=== PATIENT | male | born 1965 | race African-American/Black ===

== ENCOUNTER 2017-02-27 12:58 | Inpatient (IN) | payer OTHER ==
[2017-02-27 13:36] VITALS: BMI 27.3
--- NOTE | 2017-02-27 14:49 | HP ---
CIWA Score - CIWA Score Nausea/Vomitin-No Nausea/No Vomiting Muscle Tremors: 4-Moderate,w/Arms Extend Anxiety: 3 Agitation: 4-Moderately Restless Paroxysmal Sweats: 3 Orientation: 0-Oriented Tacttile Disturbances: 0-None Auditory Disturbances: 0-None Visual Disturbances: 0-None Headache: 1-Very Mild CIWA-Ar Total Score: 15 Admission ROS BHS - HPI Chief Complaint: I need to stop drinking. Allergies/Adverse Reactions: Allergies Allergy/AdvReac Type Severity Reaction Status Date / Time No Known Allergies Allergy Verified 02/27/17 14:25 History of Present Illness: pt is a 51yr old male with a history of alcohol dependence seeking detox for treatment. Exam Limitations: No Limitations - Ebola screening Have you traveled outside of the country in the last 21 days: No Have you had contact with anyone from an Ebola affected area: No Have you been sick,other than usual withdrawal symptoms: No Do you have a fever: No - Review of Systems Constitutional: Diaphoresis, Loss of Appetite, Night Sweats, Changes in sleep EENT: reports: No Symptoms Reported Respiratory: reports: No Symptoms reported Cardiac: reports: No Symptoms Reported GI: reports: No Symptoms Reported : reports: No Symptoms Reported Musculoskeletal: reports: No Symptoms Reported Integumentary: reports: Flushing, Sweating Neuro: reports: Headache, Tingling, Tremors Endocrine: reports: Excessive Sweating, Flushing, Intolerance to Cold, Intolerance to Heat Hematology: reports: No Symptoms Reported Psychiatric: reports: Judgement Intact, Mood/Affect Appropiate, Orientated x3, Agitated, Anxious Other Systems: Reviewed and Negative Patient History - Patient Medical History Hx Anemia: No Hx Asthma: No Hx Chronic Obstructive Pulmonary Disease (COPD): No Hx Cancer: No Hx Cardiac Disorders: No Hx Congestive Heart Failure: No Hx Hypertension: Yes (no med) Hx Hypercholesterolemia: Yes (no med) Hx Pacemaker: No HX Cerebrovascular Accident: No Hx Seizures: No Hx Dementia: No Hx Diabetes: No Hx Gastrointestinal Disorders: No Hx Liver Disease: No Hx Genitourinary Disorders: No Hx Sexually Transmitted Disorders: No Hx Renal Disease (ESRD): No Hx Thyroid Disease: No Hx Human Immunodeficiency Virus (HIV): No Hx Hepatitis C: No Hx Depression: Yes Hx Suicide Attempt: No Hx Bipolar Disorder: Yes (seroquel use 400 mg BID as per Hx) Hx Schizophrenia: No - Patient Surgical History Past Surgical History: Yes Hx Neurologic Surgery: No Hx Cataract Extraction: No Hx Cardiac Surgery: No Hx Lung Surgery: No Hx Breast Surgery: No Hx Breast Biopsy: No Hx Abdominal Surgery: No Hx Appendectomy: No Hx Cholecystectomy: No Hx Genitourinary Surgery: No Hx Section: No Hx Orthopedic Surgery: Yes (left ankle with hardware placement (pins & rosio)) Anesthesia Reaction: No - PPD History Previous Implant?: Yes Documented Results: Negative w/proof Date: 08/02/16 Results: 0mm PPD to be Administered?: No - Reproductive History Patient is a Female of Child Bearing Age (11 -55 yrs old): No - Smoking Cessation Smoking history: Current every day smoker Have you smoked in the past 12 months: Yes Aproximately how many cigarettes per day: 20 Cigars Per Day: 0 Hx Chewing Tobacco Use: No Initiated information on smoking cessation: Yes 'Breaking Loose' booklet given: 02/27/17 - Substance & Tx. History Hx Alcohol Use: Yes Hx Substance Use: No Substance Use Type: Alcohol Hx Substance Use Treatment: Yes - Substances Abused Alcohol-beer Route: Oral Frequency: 3-6 times per week Amount used: 3-4 (24 oz.) Age of first use: 20 Date of Last Use: 02/27/17 Family Disease History - Family Disease History Family Disease History: CA: Mother, Respiratory: Son Admission Physical Exam BHS - Vital Signs Vital Signs: Vital Signs - 24 hr 02/27/17 13:32 Temperature 98.4 F Pulse Rate 102 H Respiratory 20 Rate Blood Pressure 159/91 - Physical General Appearance: Yes: Appropriately Dressed, Moderate Distress, Tremorous, Irritable, Sweating, Anxious HEENTM: Yes: Hearing grossly Normal Respiratory: Yes: Lungs Clear, Normal Breath Sounds, No Respiratory Distress Neck: Yes: No masses,lesions,Nodules Breast: Yes: Within Normal Limits Cardiology: Yes: Regular Rate, S1, S2, Tachycardia Abdominal: Yes: Non Tender, Flat, Soft Back: Yes: Normal Inspection Musculoskeletal: Yes: full range of Motion Extremities: Yes: Normal Inspection, Non-Tender, Tremors Neurological: Yes: Fully Oriented, Alert, Normal Response Integumentary: Yes: Normal Color Lymphatic: Yes: Within Normal Limits - Diagnostic (1) Alcohol dependence with withdrawal Current Visit: Yes Status: Chronic Qualifiers: Complication of substance-induced condition: uncomplicated Qualified Code(s): F10.230 - Alcohol dependence with withdrawal, uncomplicated (2) HTN (hypertension) Current Visit: Yes Status: Chronic Qualifiers: Hypertension type: essential hypertension Qualified Code(s): I10 - Essential (primary) hypertension (3) Hyperlipidemia Current Visit: Yes Status: Chronic Qualifiers: Hyperlipidemia type: unspecified Qualified Code(s): E78.5 - Hyperlipidemia, unspecified (4) Nicotine dependence Current Visit: Yes Status: Chronic Qualifiers: Nicotine product type: cigarettes Substance use status: uncomplicated Qualified Code(s): F17.210 - Nicotine dependence, cigarettes, uncomplicated Cleared for Admission BHS - Detox or Rehab [facility] Level of Care: Medically Managed Detox Regimen/Protocol: Librium S Breath Alcohol Content Breath Alcohol Content: 0.097 Urine Drug Screen - Results Drug Screen Negative: Yes
[2017-02-27] MEDS ORDERED: ACETAMINOPHEN 325 MG TABLET (FP) PO PRN (14:53)
[2017-02-27] MEDS ORDERED: NICOTINE POLACRILEX 4 MG GUM BUC PRN (14:53)
[2017-02-27] MEDS ORDERED: MAG HYDROX/AL HYDROX/SIMETH 30 ML UNIT-DOSE CUP PO PRN (14:53)
[2017-02-27] MEDS ORDERED: diphenhydrAMINE HCL 50 MG CAPSULE PO PRN (14:53)
[2017-02-27] MEDS ORDERED: LOPERAMIDE HCL 2 MG CAPSULE PO PRN (14:53)
[2017-02-27] MEDS ORDERED: P-EPHED 60MG/TRIPROLIDI 2.5MG TABLET PO PRN (14:53)
[2017-02-27] MEDS ORDERED: chlordiazePOXIDE HCL 25 MG CAPSULE PO PRN (14:53)
[2017-02-27] MEDS ORDERED: guaiFENesin/D-METHORPHAN HB 10 ML UNIT-DOSE CUPS PO PRN (14:53)
[2017-02-27] MEDS ORDERED: MAGNESIUM CITRATE 300 ML BOTTLE PO PRN (14:53)
[2017-02-27] MEDS ORDERED: MAGNESIUM HYDROX 2400MG/30ML ORAL SUSPENSION 30 ML CUP PO PRN (14:53)
[2017-02-27] MEDS ORDERED: hydrOXYzine PAMOATE 50 MG CAPSULE (FP) PO PRN (14:53)
[2017-02-27] MEDS ORDERED: MENTHOL/PHENOL 1 EACH UD MM PRN (14:53)
[2017-02-27] MEDS ORDERED: IBUPROFEN 400 MG TABLET (FP) PO PRN (14:53)
[2017-02-27] MEDS ORDERED: chlordiazePOXIDE HCL 25 MG CAPSULE PO ONE (15:15)
[2017-02-27] MEDS: HYDROCHLOROTHIAZIDE 25 MG TABLET (FP) PO SCH (15:41)
[2017-02-27] MEDS: chlordiazePOXIDE HCL 25 MG CAPSULE PO SCH ×2 (16:49→22:05)
[2017-02-27] MEDS: THIAMINE HCL 100 MG TABLET (FP) PO SCH (22:06)
[2017-02-28] MEDS: chlordiazePOXIDE HCL 25 MG CAPSULE PO SCH ×3 (05:39→17:04)
--- NOTE | 2017-02-28 10:06 | EKG ---
Test Reason : Blood Pressure : / mmHG Vent. Rate : 096 BPM Atrial Rate : 096 BPM P-R Int : 170 ms QRS Dur : 100 ms QT Int : 348 ms P-R-T Axes : 065 037 057 degrees QTc Int : 439 ms NORMAL SINUS RHYTHM NORMAL ECG NO PREVIOUS ECGS AVAILABLE Confirmed by FREIDA KOENIG, NHUNG ([id number]) on 02/28/2017 10:05:58 AM Referred By: Confirmed By:NHUNG GUAN MD
[2017-02-28] MEDS: PRENATAL VITAMINS W/ FOLIC ACID TABLET (FP) PO SCH (10:14)
[2017-02-28] MEDS: NICOTINE 21 MG/24 HOURS TOPICAL PATCH TD SCH (10:14)
[2017-02-28 10:15] LABS: MCH 31.4 pg (25.7-33.7); MCHC 32.6 g/dl (32.0-35.9); MEAN CELL VOLUME 96.2 fl (80-96); MEAN PLT VOLUME 9.8 fl (7.5-11.1); PLATELET COUNT 147 K/MM3 (134-434); RDW 13.3 % (11.9-15.9); WHITE BLOOD COUNT 4.7 K/mm3 (4.0-10.0)
[2017-02-28] MEDS: HYDROCHLOROTHIAZIDE 25 MG TABLET (FP) PO SCH (10:15)
[2017-02-28 11:02] LABS: ALBUMIN 4.4 g/dl (3.4-5.0); ALK PHOS 71 U/L (45-117); ANION GAP 9 (8-16); BILIRUBIN,TOTAL 0.3 mg/dL (0.2-1.0); CALCIUM 9.8 mg/dL (8.5-10.1); CO2 26 mmol/L (21-32); COCKROFT - GAULT 93.81; CREATININE 1.1 mg/dL (0.7-1.3); GLUCOSE,RANDOM 111 mg/dL (74-106); SGOT/AST 30 U/L (15-37); SGPT/ALT 27 U/L (12-78); TOT PROT 7.8 g/dl (6.4-8.2)
--- NOTE | 2017-02-28 12:11 | CONSULT ---
[facility] Psychiatric Consult - Data Date of interview: 02/28/17 Admission source: [facility] Identifying data: Readmission to [facility] for this 51 y/o AA male seeking detox treatment for alcohol dependence.Patient is ,a father of one, domiciled and employed (self-report). Substance Abuse History: - Smoking Cessation. Smoking history: Current every day smoker. Have you smoked in the past 12 months: Yes. Aproximately how many cigarettes per day: 20. Cigars Per Day: 0. Hx Chewing Tobacco Use: No. Initiated information on smoking cessation: Yes. 'Breaking Loose' booklet given : 02/27/17. - Substance & Tx. History. Hx Alcohol Use: Yes. Hx Substance Use : No. Substance Use Type: Alcohol. Hx Substance Use Treatment: Yes. - Substances Abused. Alcohol-beer. Route: Oral. Frequency: 3-6 times per week. Amount used: 3-4 (24 oz.). Age of first use: 20. Date of Last Use: . Confirmed by patient. Medical History: Hypertension,hyperlipidemia and a history of orthosurgery for fracture of left ankle (hardware in place). Psychiatric History: No reported history of psychiatric hospitalizations.Diagnosed with Bipolar Disorder (2006).Mr Chavez gets his outpatient psychiatric services at the [facility].Maintained on a regimen of seroquel 400 mg po bid (verified via review of recent pharmacy claims of 02/19/[address] [facility]).Patient indicates that he took his medication 24 hours ago (prior to [facility] visit).No history of suicide attempts. Physical/Sexual Abuse/Trauma History: Patient denies. Additional Comment: Drug screen is negative. Mental Status Exam - Mental Status Exam Alert and Oriented to: Time, Place, Person Cognitive Function: Good Patient Appearance: Well Groomed Mood: Withdrawn Affect: Appropriate, Normal Range Patient Behavior: Fatigued, Appropriate, Cooperative Speech Pattern: Clear, Appropriate Voice Loudness: Normal Thought Process: Goal Oriented Thought Disorder: Not Present Hallucinations: Denies Suicidal Ideation: Denies Homicidal Ideation: Denies Insight/Judgement: Fair Sleep: Fair Appetite: Good Muscle strength/Tone: Normal Gait/Station: Normal Psychiatric Findings - Problem List ([place] 1, 2,3) (1) Bipolar disorder Current Visit: Yes Status: Chronic (2) Alcohol dependence with withdrawal Current Visit: Yes Status: Acute Qualifiers: Complication of substance-induced condition: uncomplicated Qualified Code(s): F10.230 - Alcohol dependence with withdrawal, uncomplicated (3) Nicotine dependence Current Visit: Yes Status: Acute Qualifiers: Nicotine product type: cigarettes Substance use status: uncomplicated Qualified Code(s): F17.210 - Nicotine dependence, cigarettes, uncomplicated (4) HTN (hypertension) Current Visit: Yes Status: Chronic Qualifiers: Hypertension type: essential hypertension Qualified Code(s): I10 - Essential (primary) hypertension (5) Hyperlipidemia Current Visit: Yes Status: Chronic Qualifiers: Hyperlipidemia type: unspecified Qualified Code(s): E78.5 - Hyperlipidemia, unspecified - Initial Treatment Plan Initial Treatment Plan: Psychoeducation.Detoxification in progress.Seroquel 200 mg po daily + 400 mg po hs.Dose is slightly reduced as caution against oversedation from drug-drug interactions.Will titrate back to 800 mg/day if well tolerated.Side effects/benefits discussed with patient.Made aware of potential for metabolic syndome,oversedation/falls,abnormal involuntary movements,liver dysfunction and cardiac adverse events.Patient reports history of good tolerability to the drug and he is eager to resume his medication.Observation.NO scripts needed at discharge.
--- NOTE | 2017-02-28 13:03 | PN ---
[facility] CIWA - CIWA Score Nausea/Vomitin-Mild Nausea/No Vomiting Muscle Tremors: 3 Anxiety: 1-Mildly Anxious Agitation: 2 Paroxysmal Sweats: 2 Orientation: 0-Oriented Tacttile Disturbances: 1-Very Mild Itch/Numbness Auditory Disturbances: 1-Very Mild Visual Disturbances: 2-Mild Sensitivity Headache: 0-None Present CIWA-Ar Total Score: 13 BHS Progress Note (SOAP) Subjective: Interrupted sleep, Tremors, Sweating. Objective: PT. A & O X 3, OBSERVED AMBULATING ON UNIT. 02/28/17 13:02 Vital Signs Temperature 96.8 F L 02/28/17 10:21 Pulse Rate 94 H 02/28/17 10:21 Respiratory Rate 18 02/28/17 10:21 Blood Pressure 127/83 02/28/17 10:21 O2 Sat by Pulse Oximetry (%) Laboratory Last Values WBC 4.7 K/mm3 (4.0-10.0) 02/28/17 06:00 RBC 4.37 M/mm3 (4.00-5.60) 02/28/17 06:00 Hgb 13.7 GM/dL (11.7-16.9) 02/28/17 06:00 Hct 42.1 % (35.4-49) 02/28/17 06:00 MCV 96.2 fl (80-96) H 02/28/17 06:00 MCHC 32.6 g/dl (32.0-35.9) 02/28/17 06:00 RDW 13.3 % (11.9-15.9) 02/28/17 06:00 Plt Count 147 K/MM3 (134-434) 02/28/17 06:00 MPV 9.8 fl (7.5-11.1) 02/28/17 06:00 Sodium 140 mmol/L (136-145) 02/28/17 06:00 Potassium 4.5 mmol/L (3.5-5.1) 02/28/17 06:00 Chloride 105 mmol/L (98-107) 02/28/17 06:00 Carbon Dioxide 26 mmol/L (21-32) 02/28/17 06:00 Anion Gap 9 (8-16) 02/28/17 06:00 BUN 9 mg/dL (7-18) D 02/28/17 06:00 Creatinine 1.1 mg/dL (0.7-1.3) 02/28/17 06:00 Creat Clearance w eGFR > 60 (>60) 02/28/17 06:00 Random Glucose 111 mg/dL (74-106) H 02/28/17 06:00 Calcium 9.8 mg/dL (8.5-10.1) 02/28/17 06:00 Total Bilirubin 0.3 mg/dL (0.2-1.0) D 02/28/17 06:00 AST 30 U/L (15-37) D 02/28/17 06:00 ALT 27 U/L (12-78) 02/28/17 06:00 Alkaline Phosphatase 71 U/L (45-117) D 02/28/17 06:00 Total Protein 7.8 g/dl (6.4-8.2) 02/28/17 06:00 Albumin 4.4 g/dl (3.4-5.0) 02/28/17 06:00 RPR Titer Nonreactive (NONREACTIVE) 02/28/17 06:00 LABS NOTED. Assessment: 02/28/17 13:02 WITHDRAWAL SYMPTOMS. Plan: CONTINUE DETOX. ADVISED PATIENT TO FOLLOW-UP WITH CERAMIC COATER AFTER DISCHARGE FROM DETOX FOR GENERAL MEDICAL ASSESSMENT AND FOR ABNORMAL ADMISSION LAB VALUES.
[2017-02-28] MEDS: QUEtiapine FUMARATE 200 MG TABLET PO SCH (14:29)
[2017-02-28] MEDS ORDERED: chlordiazePOXIDE HCL 25 MG CAPSULE PO SCH (17:00)
[2017-02-28] MEDS: chlordiazePOXIDE 5 MG CAPSULE PO SCH (22:05)
[2017-02-28] MEDS: QUEtiapine FUMARATE 400 MG TABLET PO SCH (22:05)
[2017-02-28] MEDS: THIAMINE HCL 100 MG TABLET (FP) PO SCH (22:05)
[2017-02-28] MEDS ORDERED: chlordiazePOXIDE HCL 25 MG CAPSULE PO PRN (23:00)
[2017-03-01] MEDS: chlordiazePOXIDE 5 MG CAPSULE PO SCH ×2 (05:40→10:06)
[2017-03-01] MEDS: PRENATAL VITAMINS W/ FOLIC ACID TABLET (FP) PO SCH (10:06)
[2017-03-01] MEDS: QUEtiapine FUMARATE 200 MG TABLET PO SCH (10:06)
[2017-03-01] MEDS: NICOTINE 21 MG/24 HOURS TOPICAL PATCH TD SCH (10:06)
[2017-03-01] MEDS: HYDROCHLOROTHIAZIDE 25 MG TABLET (FP) PO SCH (10:06)
--- NOTE | 2017-03-01 12:37 | PN ---
[facility] CIWA - CIWA Score Nausea/Vomitin-Mild Nausea/No Vomiting Muscle Tremors: 2 Anxiety: 0-No Anxiety, at Ease Agitation: 0-Normal Activity Paroxysmal Sweats: 3 Orientation: 0-Oriented Tacttile Disturbances: 3-Moderate Itch/Numb/Burn Auditory Disturbances: 0-None Visual Disturbances: 3-Moderate Sensitivity Headache: 0-None Present CIWA-Ar Total Score: 12 S Progress Note (SOAP) Subjective: Tremors, Sweating. Objective: PT. A & O X 3, OBSERVED AMBULATING ON UNIT. 03/01/17 12:36 Vital Signs Temperature 97.0 F L 03/01/17 09:35 Pulse Rate 101 H 03/01/17 09:35 Respiratory Rate 20 03/01/17 09:35 Blood Pressure 116/79 03/01/17 09:35 O2 Sat by Pulse Oximetry (%) Laboratory Last Values WBC 4.7 K/mm3 (4.0-10.0) 02/28/17 06:00 RBC 4.37 M/mm3 (4.00-5.60) 02/28/17 06:00 Hgb 13.7 GM/dL (11.7-16.9) 02/28/17 06:00 Hct 42.1 % (35.4-49) 02/28/17 06:00 MCV 96.2 fl (80-96) H 02/28/17 06:00 MCHC 32.6 g/dl (32.0-35.9) 02/28/17 06:00 RDW 13.3 % (11.9-15.9) 02/28/17 06:00 Plt Count 147 K/MM3 (134-434) 02/28/17 06:00 MPV 9.8 fl (7.5-11.1) 02/28/17 06:00 Sodium 140 mmol/L (136-145) 02/28/17 06:00 Potassium 4.5 mmol/L (3.5-5.1) 02/28/17 06:00 Chloride 105 mmol/L (98-107) 02/28/17 06:00 Carbon Dioxide 26 mmol/L (21-32) 02/28/17 06:00 Anion Gap 9 (8-16) 02/28/17 06:00 BUN 9 mg/dL (7-18) D 02/28/17 06:00 Creatinine 1.1 mg/dL (0.7-1.3) 02/28/17 06:00 Creat Clearance w eGFR > 60 (>60) 02/28/17 06:00 Random Glucose 111 mg/dL (74-106) H 02/28/17 06:00 Calcium 9.8 mg/dL (8.5-10.1) 02/28/17 06:00 Total Bilirubin 0.3 mg/dL (0.2-1.0) D 02/28/17 06:00 AST 30 U/L (15-37) D 02/28/17 06:00 ALT 27 U/L (12-78) 02/28/17 06:00 Alkaline Phosphatase 71 U/L (45-117) D 02/28/17 06:00 Total Protein 7.8 g/dl (6.4-8.2) 02/28/17 06:00 Albumin 4.4 g/dl (3.4-5.0) 02/28/17 06:00 RPR Titer Nonreactive (NONREACTIVE) 02/28/17 06:00 LABS NOTED. Assessment: 03/01/17 12:36 WITHDRAWAL SYMPTOMS. Plan: CONTINUE DETOX. ADVISED PATIENT TO FOLLOW-UP WITH [facility] AFTER DISCHARGE FROM DETOX FOR GENERAL MEDICAL ASSESSMENT AND FOR ABNORMAL DETOX ADMISSION LAB VALUES.
[2017-03-01] MEDS ORDERED: chlordiazePOXIDE 5 MG CAPSULE PO SCH (17:00)
[2017-03-01] MEDS: chlordiazePOXIDE HCL 10 MG CAPSULE PO SCH ×2 (17:23→22:06)
[2017-03-01] MEDS: QUEtiapine FUMARATE 400 MG TABLET PO SCH (22:06)
[2017-03-01] MEDS: THIAMINE HCL 100 MG TABLET (FP) PO SCH (22:06)
[2017-03-02] MEDS: chlordiazePOXIDE HCL 10 MG CAPSULE PO SCH (05:11)
[2017-03-02 06:21] VITALS: BP 130/84; PULSE 96; TEMP 97.9
--- NOTE | 2017-03-02 12:58 | DS ---
[facility] Detox Discharge Summary Admission Date: 02/27/17 Discharge Date: 03/02/17 - History Present History: Alcohol Dependence Additional Comments: ADVISED PATIENT TO FOLLOW-UP WITH INVESTMENT ACCOUNTANT AFTER DISCHARGE FROM DETOX FOR GENERAL MEDICAL ASSESSMENT. Pertinent Past History: HTN, Hypercholesterolemia, Depression, Bipolar Disorder. - Physical Exam Results Vital Signs: Vital Signs Temperature 97.9 F 03/02/17 06:21 Pulse Rate 96 H 03/02/17 06:21 Respiratory Rate 18 03/02/17 06:21 Blood Pressure 130/84 03/02/17 06:21 O2 Sat by Pulse Oximetry (%) Pertinent Admission Physical Exam Findings: WITHDRAWAL SYMPTOMS. Laboratory Last Values WBC 4.7 K/mm3 (4.0-10.0) 02/28/17 06:00 RBC 4.37 M/mm3 (4.00-5.60) 02/28/17 06:00 Hgb 13.7 GM/dL (11.7-16.9) 02/28/17 06:00 Hct 42.1 % (35.4-49) 02/28/17 06:00 MCV 96.2 fl (80-96) H 02/28/17 06:00 MCHC 32.6 g/dl (32.0-35.9) 02/28/17 06:00 RDW 13.3 % (11.9-15.9) 02/28/17 06:00 Plt Count 147 K/MM3 (134-434) 02/28/17 06:00 MPV 9.8 fl (7.5-11.1) 02/28/17 06:00 Sodium 140 mmol/L (136-145) 02/28/17 06:00 Potassium 4.5 mmol/L (3.5-5.1) 02/28/17 06:00 Chloride 105 mmol/L (98-107) 02/28/17 06:00 Carbon Dioxide 26 mmol/L (21-32) 02/28/17 06:00 Anion Gap 9 (8-16) 02/28/17 06:00 BUN 9 mg/dL (7-18) D 02/28/17 06:00 Creatinine 1.1 mg/dL (0.7-1.3) 02/28/17 06:00 Creat Clearance w eGFR > 60 (>60) 02/28/17 06:00 Random Glucose 111 mg/dL (74-106) H 02/28/17 06:00 Calcium 9.8 mg/dL (8.5-10.1) 02/28/17 06:00 Total Bilirubin 0.3 mg/dL (0.2-1.0) D 02/28/17 06:00 AST 30 U/L (15-37) D 02/28/17 06:00 ALT 27 U/L (12-78) 02/28/17 06:00 Alkaline Phosphatase 71 U/L (45-117) D 02/28/17 06:00 Total Protein 7.8 g/dl (6.4-8.2) 02/28/17 06:00 Albumin 4.4 g/dl (3.4-5.0) 02/28/17 06:00 RPR Titer Nonreactive (NONREACTIVE) 02/28/17 06:00 LABS NOTED. - Treatment Hospital Course: Detox Protocol Followed, Detoxed Safely, Responded well, Discharged Condition Good Patient has Accepted a Rehab Referral to: NO - PT. ELECTING TO GO HOME. 12-STEP / AA OUTPATIENT PROGRAMS RECOMMENDED. - Medication Discharge Medications: Ambulatory Orders Hydrochlorothiazide [Hctz -] 25 mg PO DAILY #30 tablet 01/17/15 Fluoxetine HCl [Prozac -] 10 mg PO DAILY 02/27/17 Ibuprofen [Motrin -] 600 mg PO TID 02/27/17 Quetiapine Fumarate [Seroquel -] 400 mg PO BID 02/27/17 - Diagnosis (1) Alcohol dependence with withdrawal Status: Acute Qualifiers: Complication of substance-induced condition: uncomplicated Qualified Code(s): F10.230 - Alcohol dependence with withdrawal, uncomplicated (2) Nicotine dependence Status: Chronic Qualifiers: Nicotine product type: cigarettes Substance use status: uncomplicated Qualified Code(s): F17.210 - Nicotine dependence, cigarettes, uncomplicated (3) Bipolar disorder Status: Chronic Qualifiers: Active/Remission status: remission status unspecified Qualified Code (s): F31.9 - Bipolar disorder, unspecified (4) HTN (hypertension) Status: Chronic Qualifiers: Hypertension type: essential hypertension Qualified Code(s): I10 - Essential (primary) hypertension (5) Hyperlipidemia Status: Chronic Qualifiers: Hyperlipidemia type: unspecified Qualified Code(s): E78.5 - Hyperlipidemia, unspecified - AMA Did Patient Leave Against Medical Advice: No
[2017-03-02] MEDS ORDERED: chlordiazePOXIDE HCL 10 MG CAPSULE PO SCH (17:00)
== END 2017-03-02 07:19 | disposition home or self-care (01) | DRG 775 ==
LOC: YASAS 12:58 → Y3N 15:12
PROVIDERS: ADMIT Internal Medicine; ATTEND Internal Medicine
PROC: HZ2ZZZZ Detoxification Services for Substance Abuse Treatment (ICD-10-PCS; principal; 2017-03-02)
DX: F10.230 Alcohol dependence with withdrawal, uncomplicated (principal); F17.210 Nicotine dependence, cigarettes, uncomplicated; F31.9 Bipolar disorder, unspecified; I10 Essential (primary) hypertension; E78.5 Hyperlipidemia, unspecified
CPT/HCPCS: 36415; 80053; 85027; 86593; 93005; 93010

== ENCOUNTER 2017-10-10 13:59 | Inpatient (IN) | payer OTHER ==
[2017-10-10 14:21] VITALS: BMI 28.0
[2017-10-10] MEDS ORDERED: MAG HYDROX/AL HYDROX/SIMETH 30 ML UNIT-DOSE CUP PO PRN (17:48)
[2017-10-10] MEDS ORDERED: LOPERAMIDE HCL 2 MG CAPSULE PO PRN (17:48)
[2017-10-10] MEDS ORDERED: MAGNESIUM CITRATE 300 ML BOTTLE PO PRN (17:48)
[2017-10-10] MEDS ORDERED: hydrOXYzine PAMOATE 50 MG CAPSULE (FP) PO PRN (17:48)
[2017-10-10] MEDS ORDERED: chlordiazePOXIDE HCL 25 MG CAPSULE PO PRN (17:48)
[2017-10-10] MEDS ORDERED: guaiFENesin/D-METHORPHAN HB 10 ML UNIT-DOSE CUPS PO PRN (17:48)
[2017-10-10] MEDS ORDERED: NICOTINE POLACRILEX 4 MG GUM BUC PRN (17:48)
[2017-10-10] MEDS ORDERED: ACETAMINOPHEN 325 MG TABLET (FP) PO PRN (17:48)
[2017-10-10] MEDS ORDERED: P-EPHED 60MG/TRIPROLIDI 2.5MG TABLET PO PRN (17:48)
[2017-10-10] MEDS ORDERED: MENTHOL/PHENOL 1 EACH UD MM PRN (17:48)
[2017-10-10] MEDS ORDERED: MAGNESIUM HYDROX 2400MG/30ML ORAL SUSPENSION 30 ML CUP PO PRN (17:48)
[2017-10-10] MEDS ORDERED: IBUPROFEN 400 MG TABLET (FP) PO PRN (17:48)
--- NOTE | 2017-10-10 17:48 | HP ---
CIWA Score - CIWA Score Nausea/Vomitin Muscle Tremors: 3 Anxiety: 3 Agitation: 3 Paroxysmal Sweats: 3 Orientation: 0-Oriented Tacttile Disturbances: 1-Very Mild Itch/Numbness Auditory Disturbances: 0-None Visual Disturbances: 0-None Headache: 1-Very Mild CIWA-Ar Total Score: 17 Admission [facility] Chief Complaint: alcohol withdrawal sx Allergies/Adverse Reactions: Allergies Allergy/AdvReac Type Severity Reaction Status Date / Time No Known Allergies Allergy Verified 02/27/17 14:25 History of Present Illness: 52 yo m with h/o chronic alcoholism and cocaine abuse reports alcohol withdrawal sx when he does not drink. no h/o sieuzres or DTs. PMHX pancreatitis , hypercholesterlemia, bipolar do on meds, HTN Exam Limitations: No Limitations - Ebola screening Have you traveled outside of the country in the last 21 days: No (N) Have you had contact with anyone from an Ebola affected area: No Have you been sick,other than usual withdrawal symptoms: No Do you have a fever: No - Review of Systems Constitutional: Chills, Diaphoresis, Loss of Appetite, Malaise, Night Sweats, Changes in sleep, Unintentional Wgt. Loss EENT: reports: No Symptoms Reported Respiratory: reports: No Symptoms reported Cardiac: reports: No Symptoms Reported GI: reports: Diarrhea, Nausea, Poor Appetite, Poor Fluid Intake, Indigestion, Abdominal cramping : reports: No Symptoms Reported Musculoskeletal: reports: Back Pain, Muscle Pain Integumentary: reports: Flushing, Sweating Neuro: reports: Headache, Numbness, Tingling, Tremors Endocrine: reports: Flushing, Increased Thirst Hematology: reports: No Symptoms Reported Psychiatric: reports: Judgement Intact, Mood/Affect Appropiate, Orientated x3, Anxious, Depressed Other Systems: Reviewed and Negative Patient History - Patient Medical History Hx Anemia: No Hx Asthma: No Hx Chronic Obstructive Pulmonary Disease (COPD): No Hx Cancer: No Hx Cardiac Disorders: No Hx Congestive Heart Failure: No Hx Hypertension: Yes (BP: 162/98, Pt is HCTZ) Hx Hypercholesterolemia: Yes (no med) Hx Pacemaker: No HX Cerebrovascular Accident: No Hx Seizures: No Hx Dementia: No Hx Diabetes: No Hx Gastrointestinal Disorders: No Hx Liver Disease: No Hx Genitourinary Disorders: No Hx Sexually Transmitted Disorders: No Hx Renal Disease (ESRD): No Hx Thyroid Disease: No Hx Human Immunodeficiency Virus (HIV): No Hx Hepatitis C: No Hx Depression: No Hx Suicide Attempt: No (no si) Hx Bipolar Disorder: Yes (seroquel use 400 mg BID as per Hx) Hx Schizophrenia: No - Patient Surgical History Past Surgical History: Yes Hx Neurologic Surgery: No Hx Cataract Extraction: No Hx Cardiac Surgery: No Hx Lung Surgery: No Hx Breast Surgery: No Hx Breast Biopsy: No Hx Abdominal Surgery: No Hx Appendectomy: No Hx Cholecystectomy: No Hx Genitourinary Surgery: No Hx Section: No Hx Orthopedic Surgery: Yes (left ankle with hardware placement (pins & rosio)) Anesthesia Reaction: No - PPD History Previous Implant?: Yes Documented Results: Negative w/o proof Date: 08/02/16 Results: 0mm PPD to be Administered?: Yes - Reproductive History Patient is a Female of Child Bearing Age (11 -55 yrs old): No Patient : No - Smoking Cessation Smoking history: Current every day smoker Have you smoked in the past 12 months: Yes Aproximately how many cigarettes per day: 20 Cigars Per Day: 0 Hx Chewing Tobacco Use: No Initiated information on smoking cessation: Yes 'Breaking Loose' booklet given: 10/10/17 - Substance & Tx. History Hx Alcohol Use: Yes Hx Substance Use: Yes Substance Use Type: Alcohol, Cocaine Hx Substance Use Treatment: Yes ([facility] - Substances Abused Alcohol Route: Oral Frequency: 3-6 times per week Amount used: Beer 3 x 24oz Age of first use: 20 Date of Last Use: 10/10/17 Cocaine Route: Inhalation Frequency: 1-3 times last 30 days Date of Last Use: 10/07/17 Family Disease History - Family Disease History Family Disease History: CA: Mother, Respiratory: Son Admission Physical Exam BHS - Vital Signs Vital Signs: Vital Signs - 24 hr 10/10/17 14:20 Temperature 96.3 F L Pulse Rate 102 H Respiratory 18 Rate Blood Pressure 162/98 - Physical General Appearance: Yes: Nourished, Appropriately Dressed, Disheveled, Mild Distress, Tremorous, Irritable, Sweating, Anxious HEENTM: Yes: Within Normal Limits, EOMI, Hearing grossly Normal, Normal ENT Inspection, Normocephalic, Normal Voice, CHHAYA, Pharynx Normal Respiratory: Yes: Within Normal Limits, Chest Non-Tender, Lungs Clear, Normal Breath Sounds, No Respiratory Distress, No Accessory Muscle Use Neck: Yes: Within Normal Limits, No masses,lesions,Nodules, Supple, Trachea in good position Breast: Yes: Breast Exam Deferred Cardiology: Yes: Within Normal Limits, Regular Rhythm, Regular Rate, S1, S2 Abdominal: Yes: Within Normal Limits, Normal Bowel Sounds, Non Tender, Flat, Increased Bowel Sounds Genitourinary: Yes: Within Normal Limits Back: Yes: Muscle Spasm Musculoskeletal: Yes: full range of Motion, Gait Steady, Pelvis Stable, Back pain Extremities: Yes: Normal Capillary Refill, Normal Range of Motion, Non-Tender, Tremors 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, Fully Oriented, Alert, Motor Strength 5/5, Normal Response, Depressed Affect Integumentary: Yes: Normal Color, Warm, Diaphoresis, Moist Lymphatic: Yes: Within Normal Limits - Addiitonal Findings: withdrawal sx - Diagnostic (1) Alcohol dependence with withdrawal Current Visit: No Status: Acute Qualifiers: (2) Bipolar disorder Current Visit: No Status: Chronic Qualifiers: (3) HTN (hypertension) Current Visit: No Status: Chronic Qualifiers: (4) Hyperlipidemia Current Visit: No Status: Chronic Qualifiers: (5) Nicotine dependence Current Visit: No Status: Chronic Qualifiers: Cleared for Admission [facility] - Detox or Rehab [facility] Level of Care: Medically Managed Detox Regimen/Protocol: Librium [facility] Breath Alcohol Content Breath Alcohol Content: 0.055 Urine Drug Screen - Results Drug Screen Negative: No Urine Drug Screen Results: JC-Cocaine, TCA-Tricyclic Antidepress
[2017-10-10] MEDS: HYDROCHLOROTHIAZIDE 25 MG TABLET (FP) PO SCH (19:09)
[2017-10-10] MEDS: NICOTINE 21 MG/24 HOURS TOPICAL PATCH TD SCH (19:15)
[2017-10-10 22:05] LABS: URINE APPEARANCE CLEAR; URINE BILIRUBIN NEGATIVE (NEGATIVE); URINE BLOOD 1+ (NEGATIVE); URINE COLOR LTYELLOW; URINE GLUCOSE (UA) NEGATIVE (NEGATIVE); URINE KETONE NEGATIVE (NEGATIVE); URINE LEUK ESTERASE NEGATIVE (NEGATIVE); URINE NITRITE NEGATIVE (NEGATIVE); URINE PROTEIN NEGATIVE (NEGATIVE); URINE UROBILINOGEN NEGATIVE mg/dL (0.2-1.0)
[2017-10-10] MEDS: THIAMINE HCL 100 MG TABLET (FP) PO SCH (22:33)
[2017-10-10] MEDS: chlordiazePOXIDE HCL 25 MG CAPSULE PO SCH (22:33)
[2017-10-10 23:08] LABS: URINE MUCUS RARE
[2017-10-11] MEDS: chlordiazePOXIDE HCL 25 MG CAPSULE PO SCH ×4 (06:37→22:51)
[2017-10-11 09:59] LABS: HEMATOCRIT 45.4 % (35.4-49); HEMOGLOBIN 14.6 GM/dL (11.7-16.9); MCH 31.2 pg (25.7-33.7); MCHC 32.2 g/dl (32.0-35.9); MEAN CELL VOLUME 96.7 fl (80-96); MEAN PLT VOLUME 9.1 fl (7.5-11.1); PLATELET COUNT 162 K/MM3 (134-434); RBC 4.69 M/mm3 (4.00-5.60)
[2017-10-11 10:14] LABS: CHLORIDE 105 mmol/L (98-107); POTASSIUM 3.7 mmol/L (3.5-5.1); SODIUM 137 mmol/L (136-145)
[2017-10-11 10:28] LABS: ALBUMIN 3.8 g/dl (3.4-5.0); ALK PHOS 64 U/L (45-117); ANION GAP 7 (8-16); BILIRUBIN,TOTAL 0.7 mg/dL (0.2-1.0); BLOOD UREA NITROGEN 12 mg/dL (7-18); CO2 25 mmol/L (21-32); CREATININE 1.1 mg/dL (0.7-1.3); GLUCOSE,RANDOM 109 mg/dL (74-106); SGOT/AST 21 U/L (15-37); SGPT/ALT 23 U/L (12-78); TOT PROT 7.3 g/dl (6.4-8.2)
--- NOTE | 2017-10-11 10:32 | CONSULT ---
[facility] Psychiatric Consult - Data Date of interview: 10/11/17 Admission source: [facility] Identifying data: Pt. is a 52 year old male, single, father of one, and currently unemployed. This is patient's one of multiple [facility]. Pt. admitted to for alcohol dependence. Substance Abuse History: Alcohol- First used 20 Frequency: 3-6 times per week Amount: 3x20oz. Last used: 10/10/2017. Cocaine- Frequency: 1-3 times last 30 days Date of Last Use: 10/07/17. Cigarette- Every day smoker: 20 cigarettes per day. Medical History: Hypertension. Psychiatric History: Pt. states he has been seeing an outpatient psychiatrist at the [facility] for four years. States he is currently on seroquel 400BID, reports taking seroquel for 8 years. Pt. reports taking his medications as prescribed. States he has a diagnosis of Bipolar disorder. Pt. denies h/o suicide attempts and psychiatric hospitalization. Physical/Sexual Abuse/Trauma History: Denies. Mental Status Exam - Mental Status Exam Alert and Oriented to: Time, Place, Person Cognitive Function: Good Patient Appearance: Well Groomed Mood: Hopeful Affect: Appropriate Patient Behavior: Appropriate, Cooperative Speech Pattern: Clear, Appropriate Voice Loudness: Normal Thought Process: Goal Oriented Thought Disorder: Not Present Hallucinations: Denies Suicidal Ideation: Denies Homicidal Ideation: Denies Insight/Judgement: Poor Sleep: Poorly Appetite: Fair Muscle strength/Tone: Normal Gait/Station: Normal Psychiatric Findings - Problem List ([place] 1, 2,3) (1) Alcohol dependence with withdrawal Current Visit: Yes Status: Acute Qualifiers: (2) Bipolar disorder Current Visit: Yes Status: Chronic Qualifiers: (3) Cocaine dependence Current Visit: Yes Status: Acute (4) Nicotine dependence Current Visit: Yes Status: Chronic Qualifiers: - Initial Treatment Plan Initial Treatment Plan: Psychoeducation provided. Detoxification in progress. Pharmacy claims reviewed. Seroquel 200mg PO daily ( reduce dosage due to cautious of oversedatiom from drug to drug interaction) + Seroquel 400mg qhs to be ordered. Seroquel 200mg to be titrated to 400mg if medication tolerated well. Benefits and side effects discussed. Verbal consent given. Pt. agreeable with plan.
[2017-10-11] MEDS: HYDROCHLOROTHIAZIDE 25 MG TABLET (FP) PO SCH (11:09)
[2017-10-11] MEDS: PRENATAL VITAMINS W/ FOLIC ACID TABLET (FP) PO SCH (11:09)
[2017-10-11] MEDS: NICOTINE 21 MG/24 HOURS TOPICAL PATCH TD SCH (11:10)
[2017-10-11] MEDS: QUEtiapine FUMARATE 200 MG TABLET PO SCH (11:11)
--- NOTE | 2017-10-11 13:13 | EKG ---
Test Reason : Blood Pressure : / mmHG Vent. Rate : 099 BPM Atrial Rate : 099 BPM P-R Int : 180 ms QRS Dur : 096 ms QT Int : 348 ms P-R-T Axes : 064 017 050 degrees QTc Int : 446 ms NORMAL SINUS RHYTHM NORMAL ECG WHEN COMPARED WITH ECG OF 27-FEB-2017 14:44, NO SIGNIFICANT CHANGE WAS FOUND Confirmed by ASHLEY HYLTON MD ([id number]) on 10/11/2017 1:13:08 PM Referred By: PONCHO KENYON Confirmed By:ASHLEY HYLTON MD
--- NOTE | 2017-10-11 14:54 | PN ---
[facility] CIWA - CIWA Score Nausea/Vomitin-Mild Nausea/No Vomiting Muscle Tremors: 3 Anxiety: 4-Mod. Anxious/Guarded Agitation: 4-Moderately Restless Paroxysmal Sweats: 3 Orientation: 0-Oriented Tacttile Disturbances: 1-Very Mild Itch/Numbness Auditory Disturbances: 0-None Visual Disturbances: 0-None Headache: 1-Very Mild CIWA-Ar Total Score: 17 BHS Progress Note (SOAP) Subjective: Sweating, nausea, interrupted sleep, anxious Objective: 10/11/17 14:51 Last Vital Signs Temp Pulse Resp BP Pulse Ox 100 F H 111 H 18 141/86 10/11/17 13:53 10/11/17 13:53 10/11/17 13:53 10/11/17 13:53 Laboratory Tests 10/10/17 10/11/17 10/11/17 21:50 07:30 07:30 WBC 4.0 RBC 4.69 Hgb 14.6 Hct 45.4 MCV 96.7 H MCH 31.2 MCHC 32.2 RDW 13.0 Plt Count 162 MPV 9.1 Sodium 137 Potassium 3.7 Chloride 105 Carbon Dioxide 25 Anion Gap 7 L BUN 12 D Creatinine 1.1 Creat Clearance w eGFR > 60 Random Glucose 109 H Calcium 9.0 Total Bilirubin 0.7 D AST 21 D ALT 23 Alkaline Phosphatase 64 Total Protein 7.3 Albumin 3.8 Urine Color Ltyellow Urine Appearance Clear Urine pH 5.0 Ur Specific [place] 1.008 Urine Protein Negative Urine Glucose (UA) Negative Urine Ketones Negative Urine Blood 1+ H Urine Nitrite Negative Urine Bilirubin Negative Urine Urobilinogen Negative Ur Leukocyte Esterase Negative Urine WBC (Auto) <1 Urine RBC (Auto) 1 Urine Mucus Rare RPR Titer 10/11/17 07:30 WBC RBC Hgb Hct MCV MCH MCHC RDW Plt Count MPV Sodium Potassium Chloride Carbon Dioxide Anion Gap BUN Creatinine Creat Clearance w eGFR Random Glucose Calcium Total Bilirubin AST ALT Alkaline Phosphatase Total Protein Albumin Urine Color Urine Appearance Urine pH Ur Specific [place] Urine Protein Urine Glucose (UA) Urine Ketones Urine Blood Urine Nitrite Urine Bilirubin Urine Urobilinogen Ur Leukocyte Esterase Urine WBC (Auto) Urine RBC (Auto) Urine Mucus RPR Titer Nonreactive Labs noted: UA shows 1+ blood Assessment: 10/11/17 14:52 Withdrawal symptoms Noted with microscopic hematuria Plan: Continue detox Microscopic hematuria: encouraged to drink lots of water, repeat UA
[2017-10-11] MEDS ORDERED: QUEtiapine FUMARATE 400 MG TABLET PO SCH (22:00)
[2017-10-11] MEDS: THIAMINE HCL 100 MG TABLET (FP) PO SCH (22:51)
[2017-10-12] MEDS: chlordiazePOXIDE HCL 25 MG CAPSULE PO SCH ×3 (06:17→17:53)
[2017-10-12] MEDS: PRENATAL VITAMINS W/ FOLIC ACID TABLET (FP) PO SCH (10:41)
[2017-10-12] MEDS: NICOTINE 21 MG/24 HOURS TOPICAL PATCH TD SCH (10:41)
[2017-10-12] MEDS: QUEtiapine FUMARATE 200 MG TABLET PO SCH (10:41)
[2017-10-12] MEDS: HYDROCHLOROTHIAZIDE 25 MG TABLET (FP) PO SCH (10:41)
--- NOTE | 2017-10-12 14:38 | PN ---
[facility] CIWA - CIWA Score Nausea/Vomitin-Mild Nausea/No Vomiting Muscle Tremors: 3 Anxiety: 4-Mod. Anxious/Guarded Agitation: 4-Moderately Restless Paroxysmal Sweats: 3 Orientation: 0-Oriented Tacttile Disturbances: 1-Very Mild Itch/Numbness Auditory Disturbances: 0-None Visual Disturbances: 0-None Headache: 0-None Present CIWA-Ar Total Score: 16 BHS Progress Note (SOAP) Subjective: Anxious, sweating, nausea Objective: 10/12/17 14:36 Last Vital Signs Temp Pulse Resp BP Pulse Ox 97.9 F 95 H 18 108/63 10/12/17 10:00 10/12/17 10:00 10/12/17 10:00 10/12/17 10:00 Laboratory Tests 10/10/17 10/11/17 10/11/17 21:50 07:30 07:30 WBC 4.0 RBC 4.69 Hgb 14.6 Hct 45.4 MCV 96.7 H MCH 31.2 MCHC 32.2 RDW 13.0 Plt Count 162 MPV 9.1 Sodium 137 Potassium 3.7 Chloride 105 Carbon Dioxide 25 Anion Gap 7 L BUN 12 D Creatinine 1.1 Creat Clearance w eGFR > 60 Random Glucose 109 H Calcium 9.0 Total Bilirubin 0.7 D AST 21 D ALT 23 Alkaline Phosphatase 64 Total Protein 7.3 Albumin 3.8 Urine Color Ltyellow Urine Appearance Clear Urine pH 5.0 Ur Specific [place] 1.008 Urine Protein Negative Urine Glucose (UA) Negative Urine Ketones Negative Urine Blood 1+ H Urine Nitrite Negative Urine Bilirubin Negative Urine Urobilinogen Negative Ur Leukocyte Esterase Negative Urine WBC (Auto) <1 Urine RBC (Auto) 1 Urine Mucus Rare RPR Titer 10/11/17 07:30 WBC RBC Hgb Hct MCV MCH MCHC RDW Plt Count MPV Sodium Potassium Chloride Carbon Dioxide Anion Gap BUN Creatinine Creat Clearance w eGFR Random Glucose Calcium Total Bilirubin AST ALT Alkaline Phosphatase Total Protein Albumin Urine Color Urine Appearance Urine pH Ur Specific [place] Urine Protein Urine Glucose (UA) Urine Ketones Urine Blood Urine Nitrite Urine Bilirubin Urine Urobilinogen Ur Leukocyte Esterase Urine WBC (Auto) Urine RBC (Auto) Urine Mucus RPR Titer Nonreactive Labs noted: UA shows 1+ blood Assessment: 10/12/17 14:37 Withdrawal symptoms Microscopic hematuria noted Plan: Continue detox Microscopic hematuria: encouraged to drink lots of water, repeat UA
--- NOTE | 2017-10-12 17:54 | PN ---
[facility] Progress Note Note: Psychiatric nurse practitioner: Spoke to patient bedside in reference to titrating seroquel to 400mg BID. Pt. agreeable with plan. No complaints of oversedation or dizziness. Vital signs within normal limits. Verbal consent given. Seroquel 400mg BID ordered.
[2017-10-12 18:02] LABS: URINE APPEARANCE CLEAR; URINE BILIRUBIN NEGATIVE (NEGATIVE); URINE BLOOD 1+ (NEGATIVE); URINE COLOR STRAW; URINE GLUCOSE (UA) NEGATIVE (NEGATIVE); URINE KETONE NEGATIVE (NEGATIVE); URINE LEUK ESTERASE NEGATIVE (NEGATIVE); URINE NITRITE NEGATIVE (NEGATIVE); URINE PROTEIN NEGATIVE (NEGATIVE); URINE UROBILINOGEN NEGATIVE mg/dL (0.2-1.0)
[2017-10-12] MEDS: THIAMINE HCL 100 MG TABLET (FP) PO SCH (22:28)
[2017-10-12] MEDS: chlordiazePOXIDE 5 MG CAPSULE PO SCH (22:28)
[2017-10-12] MEDS: QUEtiapine FUMARATE 400 MG TABLET PO SCH (22:28)
[2017-10-13] MEDS: chlordiazePOXIDE 5 MG CAPSULE PO SCH ×4 (06:12→17:51)
[2017-10-13] MEDS: PRENATAL VITAMINS W/ FOLIC ACID TABLET (FP) PO SCH (10:55)
[2017-10-13] MEDS: HYDROCHLOROTHIAZIDE 25 MG TABLET (FP) PO SCH (10:55)
[2017-10-13] MEDS: QUEtiapine FUMARATE 400 MG TABLET PO SCH ×2 (10:56→22:17)
[2017-10-13] MEDS: NICOTINE 21 MG/24 HOURS TOPICAL PATCH TD SCH (10:59)
--- NOTE | 2017-10-13 14:22 | PN ---
BHS Progress Note (SOAP) Subjective: Sweating,interrupted sleep,restless Objective: 10/13/17 14:20 Vital Signs - 8 hr 10/13/17 10/13/17 10:54 13:44 Temperature 97.3 F L 97.7 F Pulse Rate 106 H 105 H Respiratory 18 18 Rate Blood Pressure 127/79 121/82 Laboratory Tests 10/10/17 10/11/17 10/11/17 21:50 07:30 07:30 WBC 4.0 RBC 4.69 Hgb 14.6 Hct 45.4 MCV 96.7 H MCH 31.2 MCHC 32.2 RDW 13.0 Plt Count 162 MPV 9.1 Sodium 137 Potassium 3.7 Chloride 105 Carbon Dioxide 25 Anion Gap 7 L BUN 12 D Creatinine 1.1 Creat Clearance w eGFR > 60 Random Glucose 109 H Calcium 9.0 Total Bilirubin 0.7 D AST 21 D ALT 23 Alkaline Phosphatase 64 Total Protein 7.3 Albumin 3.8 Urine Color Ltyellow Urine Appearance Clear Urine pH 5.0 Ur Specific [place] 1.008 Urine Protein Negative Urine Glucose (UA) Negative Urine Ketones Negative Urine Blood 1+ H Urine Nitrite Negative Urine Bilirubin Negative Urine Urobilinogen Negative Ur Leukocyte Esterase Negative Urine WBC (Auto) <1 Urine RBC (Auto) 1 Urine Mucus Rare RPR Titer 10/11/17 10/12/17 07:30 17:53 WBC RBC Hgb Hct MCV MCH MCHC RDW Plt Count MPV Sodium Potassium Chloride Carbon Dioxide Anion Gap BUN Creatinine Creat Clearance w eGFR Random Glucose Calcium Total Bilirubin AST ALT Alkaline Phosphatase Total Protein Albumin Urine Color Straw Urine Appearance Clear Urine pH 6.0 Ur Specific [place] 1.006 Urine Protein Negative Urine Glucose (UA) Negative Urine Ketones Negative Urine Blood 1+ H Urine Nitrite Negative Urine Bilirubin Negative Urine Urobilinogen Negative Ur Leukocyte Esterase Negative Urine WBC (Auto) None Urine RBC (Auto) 2 Urine Mucus RPR Titer Nonreactive labs noted Assessment: 10/13/17 14:21 Withdrawal sx. Plan: Continue detox
[2017-10-13] MEDS: chlordiazePOXIDE HCL 10 MG CAPSULE PO SCH (22:17)
[2017-10-13] MEDS: THIAMINE HCL 100 MG TABLET (FP) PO SCH (22:17)
[2017-10-14] MEDS: chlordiazePOXIDE HCL 10 MG CAPSULE PO SCH ×2 (06:21→10:38)
--- NOTE | 2017-10-14 09:01 | DS ---
[facility] Detox Discharge Summary Admission Date: 10/10/17 Discharge Date: 10/14/17 - History Present History: Alcohol Dependence, Cocaine Dependence Pertinent Past History: HTN Hyperlipidermia - Physical Exam Results Vital Signs: Vital Signs Temperature 97.7 F 10/14/17 06:00 Pulse Rate 88 10/14/17 06:00 Respiratory Rate 18 10/14/17 06:00 Blood Pressure 123/79 10/14/17 06:00 O2 Sat by Pulse Oximetry (%) Pertinent Admission Physical Exam Findings: withdrawal sx Laboratory Last Values WBC 4.0 K/mm3 (4.0-10.0) 10/11/17 07:30 RBC 4.69 M/mm3 (4.00-5.60) 10/11/17 07:30 Hgb 14.6 GM/dL (11.7-16.9) 10/11/17 07:30 Hct 45.4 % (35.4-49) 10/11/17 07:30 MCV 96.7 fl (80-96) H 10/11/17 07:30 MCH 31.2 pg (25.7-33.7) 10/11/17 07:30 MCHC 32.2 g/dl (32.0-35.9) 10/11/17 07:30 RDW 13.0 % (11.9-15.9) 10/11/17 07:30 Plt Count 162 K/MM3 (134-434) 10/11/17 07:30 MPV 9.1 fl (7.5-11.1) 10/11/17 07:30 Sodium 137 mmol/L (136-145) 10/11/17 07:30 Potassium 3.7 mmol/L (3.5-5.1) 10/11/17 07:30 Chloride 105 mmol/L (98-107) 10/11/17 07:30 Carbon Dioxide 25 mmol/L (21-32) 10/11/17 07:30 Anion Gap 7 (8-16) L 10/11/17 07:30 BUN 12 mg/dL (7-18) D 10/11/17 07:30 Creatinine 1.1 mg/dL (0.7-1.3) 10/11/17 07:30 Creat Clearance w eGFR > 60 (>60) 10/11/17 07:30 Random Glucose 109 mg/dL (74-106) H 10/11/17 07:30 Calcium 9.0 mg/dL (8.5-10.1) 10/11/17 07:30 Total Bilirubin 0.7 mg/dL (0.2-1.0) D 10/11/17 07:30 AST 21 U/L (15-37) D 10/11/17 07:30 ALT 23 U/L (12-78) 10/11/17 07:30 Alkaline Phosphatase 64 U/L (45-117) 10/11/17 07:30 Total Protein 7.3 g/dl (6.4-8.2) 10/11/17 07:30 Albumin 3.8 g/dl (3.4-5.0) 10/11/17 07:30 Urine Color Straw 10/12/17 17:53 Urine Appearance Clear 10/12/17 17:53 Urine pH 6.0 (5.0-8.0) 10/12/17 17:53 Ur Specific [place] 1.006 (1.001-1.035) 10/12/17 17:53 Urine Protein Negative (NEGATIVE) 10/12/17 17:53 Urine Glucose (UA) Negative (NEGATIVE) 10/12/17 17:53 Urine Ketones Negative (NEGATIVE) 10/12/17 17:53 Urine Blood 1+ (NEGATIVE) H 10/12/17 17:53 Urine Nitrite Negative (NEGATIVE) 10/12/17 17:53 Urine Bilirubin Negative (NEGATIVE) 10/12/17 17:53 Urine Urobilinogen Negative mg/dL (0.2-1.0) 10/12/17 17:53 Ur Leukocyte Esterase Negative (NEGATIVE) 10/12/17 17:53 Urine WBC (Auto) None /hpf (3-5) 10/12/17 17:53 Urine RBC (Auto) 2 /hpf (0-3) 10/12/17 17:53 Urine Mucus Rare 10/10/17 21:50 RPR Titer Nonreactive (NONREACTIVE) 10/11/17 07:30 Labs noted - Treatment Hospital Course: Detox Protocol Followed, Detoxed Safely, Responded well, Discharged Condition Good, Rehab Referral Accepted Patient has Accepted a Rehab Referral to: [facility] Rehab - Medication Discharge Medications: Ambulatory Orders Hydrochlorothiazide [Hctz -] 25 mg PO DAILY #30 tablet 01/17/15 Fluoxetine HCl [Prozac -] 10 mg PO DAILY 02/27/17 Ibuprofen [Motrin -] 600 mg PO TID 02/27/17 Quetiapine Fumarate [Seroquel -] 400 mg PO BID 02/27/17 - Diagnosis (1) Alcohol dependence with withdrawal Current Visit: Yes Status: Acute Qualifiers: Complication of substance-induced condition: uncomplicated Qualified Code(s ): F10.230 - Alcohol dependence with withdrawal, uncomplicated (2) Microscopic hematuria Current Visit: Yes Status: Acute (3) HTN (hypertension) Current Visit: Yes Status: Chronic Qualifiers: Hypertension type: essential hypertension (4) Hyperlipidemia Current Visit: Yes Status: Chronic Qualifiers: (5) Nicotine dependence Current Visit: Yes Status: Chronic Qualifiers: - AMA Did Patient Leave Against Medical Advice: No
[2017-10-14 09:44] VITALS: BP 120/80; PULSE 100; TEMP 98.2
[2017-10-14] MEDS: QUEtiapine FUMARATE 400 MG TABLET PO SCH (10:35)
[2017-10-14] MEDS: HYDROCHLOROTHIAZIDE 25 MG TABLET (FP) PO SCH (10:35)
[2017-10-14] MEDS: PRENATAL VITAMINS W/ FOLIC ACID TABLET (FP) PO SCH (10:35)
[2017-10-14] MEDS: NICOTINE 21 MG/24 HOURS TOPICAL PATCH TD SCH (10:39)
== END 2017-10-14 11:05 | disposition other institution (70) | DRG 775 ==
LOC: YASAS 13:59 → Y6N 18:22
PROVIDERS: ADMIT Internal Medicine; ATTEND Internal Medicine
PROC: HZ2ZZZZ Detoxification Services for Substance Abuse Treatment (ICD-10-PCS; principal; 2017-10-10)
DX: F10.230 Alcohol dependence with withdrawal, uncomplicated (principal); F17.210 Nicotine dependence, cigarettes, uncomplicated; F31.9 Bipolar disorder, unspecified; E78.5 Hyperlipidemia, unspecified; I10 Essential (primary) hypertension; R31.29 Other microscopic hematuria
CPT/HCPCS: 36415; 80053; 81003; 81015; 85027; 86593; 93005; 93010

== ENCOUNTER 2017-10-14 11:12 | Inpatient (IN) | payer OTHER ==
[2017-10-14 11:45] VITALS: BMI 27.3
[2017-10-14] MEDS ORDERED: MAGNESIUM CITRATE 300 ML BOTTLE PO PRN (12:03)
[2017-10-14] MEDS ORDERED: NICOTINE POLACRILEX 2 MG GUM BUC PRN (12:03)
[2017-10-14] MEDS ORDERED: P-EPHED 60MG/TRIPROLIDI 2.5MG TABLET PO PRN (12:03)
[2017-10-14] MEDS ORDERED: MAG HYDROX/AL HYDROX/SIMETH 30 ML UNIT-DOSE CUP PO PRN (12:03)
[2017-10-14] MEDS ORDERED: MENTHOL/PHENOL 1 EACH UD MM PRN (12:03)
[2017-10-14] MEDS ORDERED: LOPERAMIDE HCL 2 MG CAPSULE PO PRN (12:03)
[2017-10-14] MEDS ORDERED: MAGNESIUM HYDROX 2400MG/30ML ORAL SUSPENSION 30 ML CUP PO PRN (12:03)
[2017-10-14] MEDS ORDERED: guaiFENesin/D-METHORPHAN HB 10 ML UNIT-DOSE CUPS PO PRN (12:03)
--- NOTE | 2017-10-14 12:14 | HP ---
[facility] Rehab Assess/Revision - Admission History Admitted to Rehab from: [facility] Date of Admission to Rehab: 10/14/17 - Vital signs Vital Signs: Vital Signs Period Temp Pulse Resp BP Sys/Beltran Pulse Ox Last 24 Hr 98.4 F 107 18 136/86 - Findings Detox History & Physical reviewed: Yes Concur with findings: Yes Inpatient Rehab Admission - Initial Determination Are CD services needed?: Yes Free of communicable disease: Yes Not in need of hospitalization: Yes - Rehab Admission Criteria Previous failed treatment: Yes Poor recovery environment: Yes Comorbidities: Yes Lacks judgement: Yes Patient is meeting Inpatient Rehab admission criteria:: Yes
[2017-10-14] MEDS: QUEtiapine FUMARATE 400 MG TABLET PO SCH (21:24)
[2017-10-14] MEDS: THIAMINE HCL 100 MG TABLET (FP) PO SCH (21:24)
[2017-10-15] MEDS: QUEtiapine FUMARATE 400 MG TABLET PO SCH ×2 (09:57→21:19)
[2017-10-15] MEDS: NICOTINE 21 MG/24 HOURS TOPICAL PATCH TD SCH (09:57)
[2017-10-15] MEDS: HYDROCHLOROTHIAZIDE 25 MG TABLET (FP) PO SCH (09:57)
[2017-10-15] MEDS: PRENATAL VITAMINS W/ FOLIC ACID TABLET (FP) PO SCH (09:57)
[2017-10-15] MEDS: FLUoxetine HCL 10 MG CAPSULE (FP) PO SCH (09:58)
[2017-10-15] MEDS ORDERED: FLUoxetine HCL 10 MG TABLET PO SCH (10:00)
[2017-10-15] MEDS: THIAMINE HCL 100 MG TABLET (FP) PO SCH (21:19)
--- NOTE | 2017-10-16 06:10 | HP ---
Psychiatrist Admission - Data Date of interview: 10/16/17 Admission source: 6N Identifying data: This is the second [facility] admission for this 52 years old single Black male, father of a 21 years old son , unemployed on public assistance, domiciled living in a roon in [facility] Medical History: Significant for hypertension, hyperlipidemia and history of pancreatitis and orthosurgery for fracture left ankle in 1997. Smokes cigarettes 1ppd Psychiatric History: Reports being diagnosed with Bipolar Disorder in 2006. Denies history of previous psychiatric hospitalization or suicidal attempt. Reports seeing Dr Tran at [facility] and he is prescribed Seroquel 400 mg po BID. He saw DARRYL Narvaez on 10/11/17 while in detox and was prescribed Seroquel 400 mg po BID. At present, Report feeling well and sleeping well with Seroquel Physical/Sexual Abuse/Trauma History: Denies history of sexual, physical and verbal abuse. No history of service. Additional Comment: Reports history of multiple previous arrests including one felony conviction. No parole/probation currently Vital Signs: Vital Signs - 24 hr 10/15/17 10/15/17 10/16/17 06:38 10:00 00:30 Temperature 97.6 F Pulse Rate 97 H 99 H Respiratory 20 20 18 Rate Blood Pressure 138/86 158/88 Allergies/Adverse Reactions: Allergies Allergy/AdvReac Type Severity Reaction Status Date / Time No Known Allergies Allergy Verified 02/27/17 14:25 Date of last physical exam: 10/10/17 Concur with the findings of this exam: Yes - Substance Abuse/Tx History Hx Alcohol Use: Yes Hx Substance Use: Yes Substance Use Type: Alcohol (Started drinking alcohol at age 20, consumes 3x24oz of beer daily. Last drank on 10/10/17), Cocaine (Reports that he tried cocaine once recently) Hx Substance Use Treatment: Yes (4 previous inpt detox & one inpt rehab @ [facility]) Mental Status Exam - Mental Status Exam Alert and Oriented to: Time, Place, Person Cognitive Function: Fair Patient Appearance: Well Groomed Mood: Hopeful, Euthymic Patient Behavior: Cooperative Speech Pattern: Clear Voice Loudness: Normal Thought Process: Intact, Goal Oriented Hallucinations: Denies Suicidal Ideation: Denies Homicidal Ideation: Denies Insight/Judgement: Fair Sleep: Poorly Appetite: Fair Muscle strength/Tone: Normal Gait/Station: Normal Psychiatric Findings - Problem List ([place] 1, 2,3) (1) Alcohol dependence Current Visit: Yes Status: Acute (2) Nicotine dependence Current Visit: No Status: Chronic Qualifiers: (3) Bipolar disorder Current Visit: No Status: Chronic Qualifiers: (4) HTN (hypertension) Current Visit: No Status: Chronic Qualifiers: Hypertension type: essential hypertension Qualified Code(s): I10 - Essential (primary) hypertension (5) Hyperlipidemia Current Visit: No Status: Chronic Qualifiers: - Initial Treatment Plan Initial Treatment Plan: 1) Continue Prozac 10 mg po daily and Seroquel 400 mg po BID. 2) Monitor progress
[2017-10-16] MEDS: QUEtiapine FUMARATE 400 MG TABLET PO SCH ×2 (09:57→21:14)
[2017-10-16] MEDS: FLUoxetine HCL 10 MG CAPSULE (FP) PO SCH (09:57)
[2017-10-16] MEDS: PRENATAL VITAMINS W/ FOLIC ACID TABLET (FP) PO SCH (09:57)
[2017-10-16] MEDS: HYDROCHLOROTHIAZIDE 25 MG TABLET (FP) PO SCH (09:57)
[2017-10-16] MEDS: NICOTINE 21 MG/24 HOURS TOPICAL PATCH TD SCH (09:58)
--- NOTE | 2017-10-16 14:47 | PN ---
S Progress Note (SOAP) Subjective: Patient seen for c/o swelling in legs. As per patient, he accidentally broke his left leg years ago and has pins and needles inserted. As per patient, every time it rains or snows, his right leg gets swollen but it's fine now. He denies any sob or chest pain. Objective: 10/16/17 14:45 Last Vital Signs Temp Pulse Resp BP Pulse Ox 97.7 F 100 H 18 148/91 10/16/17 06:40 10/16/17 09:30 10/16/17 06:40 10/16/17 09:30 Labs reviewed PE: Extrem: old healed scar alongside left leg, no swelling noted to either legs Assessment: 10/16/17 14:45 Patient seen for swelling of legs Plan: Edema of legs: no edema noted at this time. Patient instructed to elevate legs whenever it gets swollen and to avoid long standing.
[2017-10-16] MEDS: THIAMINE HCL 100 MG TABLET (FP) PO SCH (21:14)
[2017-10-17] MEDS: FLUoxetine HCL 10 MG CAPSULE (FP) PO SCH (09:45)
[2017-10-17] MEDS: HYDROCHLOROTHIAZIDE 25 MG TABLET (FP) PO SCH (09:45)
[2017-10-17] MEDS: QUEtiapine FUMARATE 400 MG TABLET PO SCH ×2 (09:45→21:45)
[2017-10-17] MEDS: PRENATAL VITAMINS W/ FOLIC ACID TABLET (FP) PO SCH (09:45)
[2017-10-17] MEDS: NICOTINE 21 MG/24 HOURS TOPICAL PATCH TD SCH (09:45)
[2017-10-17] MEDS: THIAMINE HCL 100 MG TABLET (FP) PO SCH (21:45)
[2017-10-18] MEDS: PRENATAL VITAMINS W/ FOLIC ACID TABLET (FP) PO SCH (09:57)
[2017-10-18] MEDS: NICOTINE 21 MG/24 HOURS TOPICAL PATCH TD SCH (09:57)
[2017-10-18] MEDS: FLUoxetine HCL 10 MG CAPSULE (FP) PO SCH (09:57)
[2017-10-18] MEDS: HYDROCHLOROTHIAZIDE 25 MG TABLET (FP) PO SCH (09:57)
[2017-10-18] MEDS: QUEtiapine FUMARATE 400 MG TABLET PO SCH ×2 (09:57→21:13)
[2017-10-18] MEDS: THIAMINE HCL 100 MG TABLET (FP) PO SCH (21:13)
[2017-10-19] MEDS: HYDROCHLOROTHIAZIDE 25 MG TABLET (FP) PO SCH (09:35)
[2017-10-19] MEDS: FLUoxetine HCL 10 MG CAPSULE (FP) PO SCH (09:35)
[2017-10-19] MEDS: PRENATAL VITAMINS W/ FOLIC ACID TABLET (FP) PO SCH (09:35)
[2017-10-19] MEDS: QUEtiapine FUMARATE 400 MG TABLET PO SCH ×2 (09:36→21:15)
[2017-10-19] MEDS: NICOTINE 21 MG/24 HOURS TOPICAL PATCH TD SCH (09:36)
[2017-10-19] MEDS: THIAMINE HCL 100 MG TABLET (FP) PO SCH (21:15)
[2017-10-20] MEDS: PRENATAL VITAMINS W/ FOLIC ACID TABLET (FP) PO SCH (09:44)
[2017-10-20] MEDS: FLUoxetine HCL 10 MG CAPSULE (FP) PO SCH (09:44)
[2017-10-20] MEDS: HYDROCHLOROTHIAZIDE 25 MG TABLET (FP) PO SCH (09:44)
[2017-10-20] MEDS: NICOTINE 21 MG/24 HOURS TOPICAL PATCH TD SCH (09:44)
[2017-10-20] MEDS: QUEtiapine FUMARATE 400 MG TABLET PO SCH ×2 (09:46→21:38)
[2017-10-20] MEDS: THIAMINE HCL 100 MG TABLET (FP) PO SCH (21:38)
[2017-10-21] MEDS: NICOTINE 21 MG/24 HOURS TOPICAL PATCH TD SCH (09:48)
[2017-10-21] MEDS: HYDROCHLOROTHIAZIDE 25 MG TABLET (FP) PO SCH (09:48)
[2017-10-21] MEDS: PRENATAL VITAMINS W/ FOLIC ACID TABLET (FP) PO SCH (09:48)
[2017-10-21] MEDS: QUEtiapine FUMARATE 400 MG TABLET PO SCH ×2 (09:48→21:22)
[2017-10-21] MEDS: FLUoxetine HCL 10 MG CAPSULE (FP) PO SCH (09:48)
[2017-10-21] MEDS: THIAMINE HCL 100 MG TABLET (FP) PO SCH (21:22)
[2017-10-22] MEDS: NICOTINE 21 MG/24 HOURS TOPICAL PATCH TD SCH (09:52)
[2017-10-22] MEDS: FLUoxetine HCL 10 MG CAPSULE (FP) PO SCH (09:52)
[2017-10-22] MEDS: HYDROCHLOROTHIAZIDE 25 MG TABLET (FP) PO SCH (09:52)
[2017-10-22] MEDS: PRENATAL VITAMINS W/ FOLIC ACID TABLET (FP) PO SCH (09:52)
[2017-10-22] MEDS: QUEtiapine FUMARATE 400 MG TABLET PO SCH ×2 (09:53→22:00)
[2017-10-22] MEDS: ACETAMINOPHEN 325 MG TABLET (FP) PO PRN ×2 (16:01→21:40)
[2017-10-22] MEDS: THIAMINE HCL 100 MG TABLET (FP) PO SCH (21:24)
[2017-10-23] MEDS: ACETAMINOPHEN 325 MG TABLET (FP) PO PRN (08:24)
[2017-10-23] MEDS: PRENATAL VITAMINS W/ FOLIC ACID TABLET (FP) PO SCH (10:06)
[2017-10-23] MEDS: NICOTINE 21 MG/24 HOURS TOPICAL PATCH TD SCH (10:06)
[2017-10-23] MEDS: HYDROCHLOROTHIAZIDE 25 MG TABLET (FP) PO SCH (10:06)
[2017-10-23] MEDS: QUEtiapine FUMARATE 400 MG TABLET PO SCH ×2 (10:06→21:51)
[2017-10-23] MEDS: FLUoxetine HCL 10 MG CAPSULE (FP) PO SCH (10:06)
[2017-10-23] MEDS: IBUPROFEN 400 MG TABLET (FP) PO PRN ×2 (15:29→21:50)
[2017-10-23] MEDS: THIAMINE HCL 100 MG TABLET (FP) PO SCH (21:50)
[2017-10-24] MEDS: ACETAMINOPHEN 325 MG TABLET (FP) PO PRN (02:14)
[2017-10-24] MEDS: FLUoxetine HCL 10 MG CAPSULE (FP) PO SCH (09:20)
[2017-10-24] MEDS: HYDROCHLOROTHIAZIDE 25 MG TABLET (FP) PO SCH (09:20)
[2017-10-24] MEDS: PRENATAL VITAMINS W/ FOLIC ACID TABLET (FP) PO SCH (09:20)
[2017-10-24] MEDS: NICOTINE 21 MG/24 HOURS TOPICAL PATCH TD SCH (09:21)
[2017-10-24] MEDS: QUEtiapine FUMARATE 400 MG TABLET PO SCH ×2 (09:21→21:28)
[2017-10-24] MEDS: THIAMINE HCL 100 MG TABLET (FP) PO SCH (21:28)
[2017-10-25] MEDS: PRENATAL VITAMINS W/ FOLIC ACID TABLET (FP) PO SCH (09:42)
[2017-10-25] MEDS: QUEtiapine FUMARATE 400 MG TABLET PO SCH ×2 (09:42→21:18)
[2017-10-25] MEDS: HYDROCHLOROTHIAZIDE 25 MG TABLET (FP) PO SCH (09:42)
[2017-10-25] MEDS: NICOTINE 21 MG/24 HOURS TOPICAL PATCH TD SCH (09:42)
[2017-10-25] MEDS: FLUoxetine HCL 10 MG CAPSULE (FP) PO SCH (09:42)
--- NOTE | 2017-10-25 11:04 | PN ---
Psychiatric Progress Note Vital Signs: Vital Signs Period Temp Pulse Resp BP Sys/Beltran Pulse Ox Last 24 Hr 98.6 F 89-92 18-20 124-138/80-86 Date of Session: 10/25/17 Chief Complaint:: Discharge Note HPI: Patient addressing Alcohol Dependence comorbid with Nicotine Dependence and Bipolar Disorder ROS: HTN, HLD were medically managed Current Medications: Active Medications Generic Name Dose Route Start Last Admin Trade Name Freq PRN Reason Stop Dose Admin Acetaminophen 650 mg 10/14/17 12:03 10/24/17 02:14 Tylenol - PO 650 mg Q4H PRN Administration FEVER OR PAIN Al Hydroxide/Mg Hydroxide 30 ml 10/14/17 12:03 Mylanta Oral Suspension - PO Q6H PRN DYSPEPSIA Eucalyptus/Menthol/Phenol/Sorbitol 1 each 10/14/17 12:03 Cepastat Lozenge - MM Q4H PRN SORE THROAT Fluoxetine HCl 10 mg 10/15/17 10:00 10/25/17 09:42 Prozac - PO 10 mg DAILY TIFFANIE Administration Guaifenesin 10 ml 10/14/17 12:03 Robitussin Dm - PO Q6H PRN COUGH Hydrochlorothiazide 25 mg 10/15/17 10:00 10/25/17 09:42 Hctz - PO 25 mg DAILY TIFFANIE Administration Ibuprofen 400 mg 10/14/17 12:03 10/23/17 21:50 Motrin - PO 400 mg Q6H PRN Administration PAIN Loperamide HCl 4 mg 10/14/17 12:03 Imodium - PO Q6H PRN DIARRHEA Magnesium Citrate 300 ml 10/14/17 12:03 Citroma - PO Q48H PRN CONSTIPATION Magnesium Hydroxide 30 ml 10/14/17 12:03 Milk Of Magnesia - PO DAILY PRN CONSTIPATION Nicotine 21 mg 10/15/17 10:00 10/25/17 09:42 Nicoderm Patch - TD 21 mg DAILY TIFFANIE Administration Nicotine Polacrilex 2 mg 10/14/17 12:03 10/18/17 09:58 Nicorette Gum - BUC 2 mg Q2H PRN Administration NICOTINE REPLACEMENT RX Multivit/Folic Acid/Iron 1 tab 10/15/17 10:00 10/25/17 09:42 Vitamins (Sjr) - PO 1 tab DAILY TIFFANIE Administration Pseudoephedrine/Triprolidine 1 combo 10/14/17 12:03 Actifed - PO TID PRN NASAL CONGESTION Quetiapine Fumarate 400 mg 10/14/17 22:00 10/25/17 09:42 Seroquel - PO 400 mg BID TIFFANIE Administration Thiamine HCl 100 mg 10/14/17 22:00 10/24/17 21:28 Vitamin B1 - PO 100 mg HS TIFFANIE Administration Current Side Effect: No Lab tests ordered: Yes Lab tests reviewed: Yes Provider note:: Patient will complete this program on 10/26/17. He has met his treatment goals and will continue to address his issues in outpatient treatment at [facility] at [address] [place] [address]. Told sheet writer that from his participation in this program, he has learned the importance of establishing a sober suport network in order to maintain abstinence. He responded well to Prozac 10 mg po daily and Seroquel 400 mg po BID. Scripts for 30 days supply of medications will be electronically transmitted to [facility] at [address] [place] [address]. He is stable for discharge on 10/26/17 Total face to face time:: 35 Mental Status Exam - Mental Status Exam Alert and Oriented to: Time, Place, Person Cognitive Function: Fair Patient Appearance: Well Groomed Mood: Hopeful, Euthymic Affect: Appropriate Patient Behavior: Cooperative Speech Pattern: Clear Voice Loudness: Normal Thought Process: Intact, Goal Oriented Thought Disorder: Not Present Hallucinations: Denies Suicidal Ideation: Denies Homicidal Ideation: Denies Insight/Judgement: Fair Sleep: Well Appetite: Good Muscle strength/Tone: Normal Gait/Station: Normal Psychiatric Treatment Plan - Problem List (1) Alcohol dependence Current Visit: Yes (2) Nicotine dependence Current Visit: No Qualifiers: (3) Bipolar disorder Current Visit: No Qualifiers: (4) HTN (hypertension) Current Visit: No Qualifiers: Hypertension type: essential hypertension Qualified Code(s): I10 - Essential (primary) hypertension (5) Hyperlipidemia Current Visit: No Qualifiers: Initial treatment plan: Patient will be discharged tomorrow and referred to [facility] in [facility] for outpatient treatment
[2017-10-25] MEDS: THIAMINE HCL 100 MG TABLET (FP) PO SCH (21:18)
[2017-10-26 07:03] VITALS: BP 128/84; PULSE 95; TEMP 98.1
[2017-10-26] MEDS: NICOTINE 21 MG/24 HOURS TOPICAL PATCH TD SCH (09:40)
[2017-10-26] MEDS: QUEtiapine FUMARATE 400 MG TABLET PO SCH (09:40)
[2017-10-26] MEDS: FLUoxetine HCL 10 MG CAPSULE (FP) PO SCH (09:40)
[2017-10-26] MEDS: PRENATAL VITAMINS W/ FOLIC ACID TABLET (FP) PO SCH (09:40)
[2017-10-26] MEDS: HYDROCHLOROTHIAZIDE 25 MG TABLET (FP) PO SCH (09:40)
== END 2017-10-26 09:45 | disposition home or self-care (01) | DRG 772 ==
LOC: YASAS 11:12 → Y3W 11:13
PROVIDERS: ADMIT Psychiatry & Neurology Psychiatry; ATTEND Psychiatry & Neurology Psychiatry
PROC: HZ42ZZZ Group Counseling for Substance Abuse Treatment, Cognitive-Behavioral (ICD-10-PCS; principal; 2017-10-14)
DX: F10.230 Alcohol dependence with withdrawal, uncomplicated (principal); F17.210 Nicotine dependence, cigarettes, uncomplicated; F31.9 Bipolar disorder, unspecified; I10 Essential (primary) hypertension; E78.5 Hyperlipidemia, unspecified

== ENCOUNTER 2018-03-05 16:15 | Inpatient (IN) | payer OTHER ==
[2018-03-05 18:35] VITALS: BMI 28.3
--- NOTE | 2018-03-05 20:32 | HP ---
CIWA Score - CIWA Score Nausea/Vomitin-No Nausea/No Vomiting Muscle Tremors: 1-None Visible, but [place] Anxiety: 4-Mod. Anxious/Guarded Agitation: 4-Moderately Restless Paroxysmal Sweats: No Perspiration Orientation: 1-Uncertain about Date Tacttile Disturbances: 0-None Auditory Disturbances: 0-None Visual Disturbances: 0-None Headache: 2-Mild CIWA-Ar Total Score: 12 Admission ROS BHS - HPI Chief Complaint: seeking detox from alcohol with withdrawal sx's Allergies/Adverse Reactions: Allergies Allergy/AdvReac Type Severity Reaction Status Date / Time No Known Allergies Allergy Verified 03/05/18 20:38 History of Present Illness: 52 Y.O. MALE WITH ALCOHOLISM HERE FOR DETOX. CLIENT IS KNOWN TO THIS PROGRAM. LAST HERE 09/2017 WHERE HE COMPLETED DETOX. REFERRED BY HIS OUT PATIENT PROGRAM NATALIA. DENIES ANY PERIOD OF SIGNIFICANT CLEAN TIME. DENIES SI/HI AND A /V HALLUCINATIONS PMHX: HLD, HTN, NICOTINE DEP PSYCH:BIPOLAR, ANXIETY Exam Limitations: No Limitations - Ebola screening Have you traveled outside of the country in the last 21 days: No (N) Have you had contact with anyone from an Ebola affected area: No Have you been sick,other than usual withdrawal symptoms: No Do you have a fever: No - Review of Systems Constitutional: Chills, Loss of Appetite, Night Sweats, Changes in sleep EENT: reports: Dental Problems (MISSING TEETH) Respiratory: reports: No Symptoms reported Cardiac: reports: No Symptoms Reported GI: reports: Poor Appetite, Poor Fluid Intake : reports: No Symptoms Reported Musculoskeletal: reports: No Symptoms Reported Integumentary: reports: No Symptoms Reported Neuro: reports: No Symptoms reported Endocrine: reports: No Symptoms Reported Hematology: reports: No Symptoms Reported Psychiatric: reports: Anxious, Depressed Other Systems: Reviewed and Negative Patient History - Patient Medical History Hx Anemia: No Hx Asthma: No Hx Chronic Obstructive Pulmonary Disease (COPD): No Hx Cancer: No Hx Cardiac Disorders: No Hx Congestive Heart Failure: No Hx Hypertension: Yes Hx Hypercholesterolemia: Yes (no med) Hx Pacemaker: No HX Cerebrovascular Accident: No Hx Seizures: No Hx Dementia: No Hx Diabetes: No Hx Gastrointestinal Disorders: No Hx Liver Disease: No Hx Genitourinary Disorders: No Hx Sexually Transmitted Disorders: No Hx Renal Disease (ESRD): No Hx Thyroid Disease: No Hx Human Immunodeficiency Virus (HIV): No Hx Hepatitis C: No Hx Depression: Yes Hx Suicide Attempt: No Hx Bipolar Disorder: Yes (seroquel use 400 mg BID as per Hx) Hx Schizophrenia: No Other Medical History: DENIES - Patient Surgical History Past Surgical History: Yes Hx Neurologic Surgery: No Hx Cataract Extraction: No Hx Cardiac Surgery: No Hx Lung Surgery: No Hx Breast Surgery: No Hx Breast Biopsy: No Hx Abdominal Surgery: No Hx Appendectomy: No Hx Cholecystectomy: No Hx Genitourinary Surgery: No Hx Section: No Hx Orthopedic Surgery: Yes (left ankle with hardware placement (pins & rosio)) Anesthesia Reaction: No - PPD History Previous Implant?: Yes Documented Results: Negative w/proof Date: 10/12/17 Results: 0 mm PPD to be Administered?: No - Smoking Cessation Smoking history: Current every day smoker Have you smoked in the past 12 months: Yes Aproximately how many cigarettes per day: 10 Cigars Per Day: 0 Hx Chewing Tobacco Use: No Initiated information on smoking cessation: Yes 'Breaking Loose' booklet given: 03/05/18 - Substance & Tx. History Hx Alcohol Use: Yes Hx Substance Use: Yes Substance Use Type: Alcohol, Cocaine Hx Substance Use Treatment: Yes ([facility]) - Substances Abused Alcohol Route: Oral Frequency: Daily Amount used: 3/24oz of beer Age of first use: 21 Date of Last Use: 03/05/18 Cocaine Route: Inhalation Frequency: 1-3 times last 30 days Amount used: 1 bag Age of first use: 27 Date of Last Use: 03/01/18 Family Disease History - Family Disease History Family Disease History: [place]: Mother, Respiratory: Son Admission Physical Exam [facility] - Vital Signs Vital Signs: Vital Signs - 24 hr 03/05/18 18:34 Temperature 97.1 F L Pulse Rate 125 H Respiratory 18 Rate Blood Pressure 146/92 - Physical General Appearance: Yes: Appropriately Dressed, Alcohol on Breath, Tremorous ( FELT), Anxious HEENTM: Yes: Normocephalic, Normal Voice, CHHAYA, Pharynx Normal, Other (MISSING TEETH) Respiratory: Yes: Chest Non-Tender, Lungs Clear, Normal Breath Sounds, No Respiratory Distress, No Accessory Muscle Use Neck: Yes: No masses,lesions,Nodules, Supple, Trachea in good position Breast: Yes: Breast Exam Deferred Cardiology: Yes: Regular Rhythm, S1, S2, Tachycardia Abdominal: Yes: Normal Bowel Sounds, Non Tender, Soft, Protuberent Genitourinary: Yes: Within Normal Limits Back: Yes: Normal Inspection Musculoskeletal: Yes: full range of Motion, Gait Steady Extremities: Yes: Normal Capillary Refill, Normal Range of Motion, Non-Tender, Tremors Neurological: Yes: Fully Oriented, Alert, Motor Strength 5/5 Integumentary: Yes: Normal Color, Dry, Warm Lymphatic: Yes: Within Normal Limits - Diagnostic (1) Alcohol dependence with withdrawal Current Visit: Yes Status: Acute Qualifiers: Complication of substance-induced condition: uncomplicated Qualified Code(s ): F10.230 - Alcohol dependence with withdrawal, uncomplicated (2) Bipolar disorder Current Visit: Yes Status: Suspected Qualifiers: (3) HTN (hypertension) Current Visit: Yes Status: Chronic Qualifiers: Hypertension type: essential hypertension Qualified Code(s): I10 - Essential (primary) hypertension (4) Hyperlipidemia Current Visit: Yes Status: Chronic Qualifiers: (5) Nicotine dependence Current Visit: Yes Status: Chronic Qualifiers: Cleared for Admission [facility] - Detox or Rehab [facility] Level of Care: Medically Managed Detox Regimen/Protocol: Librium Claeared for Rehab Admission: No [facility] Breath Alcohol Content Breath Alcohol Content: 0.121 Urine Drug Screen - Results Drug Screen Negative: No Urine Drug Screen Results: JC-Cocaine
[2018-03-05] MEDS ORDERED: IBUPROFEN 400 MG TABLET (FP) PO PRN (20:33)
[2018-03-05] MEDS ORDERED: chlordiazePOXIDE HCL 25 MG CAPSULE PO PRN (20:33)
[2018-03-05] MEDS ORDERED: MAGNESIUM HYDROX 2400MG/30ML ORAL SUSPENSION 30 ML CUP PO PRN (20:33)
[2018-03-05] MEDS ORDERED: MAG HYDROX/AL HYDROX/SIMETH 30 ML UNIT-DOSE CUP PO PRN (20:33)
[2018-03-05] MEDS ORDERED: P-EPHED 60MG/TRIPROLIDI 2.5MG TABLET PO PRN (20:33)
[2018-03-05] MEDS ORDERED: guaiFENesin/D-METHORPHAN HB 10 ML UNIT-DOSE CUPS PO PRN (20:33)
[2018-03-05] MEDS ORDERED: NICOTINE POLACRILEX 2 MG GUM BC PRN (20:33)
[2018-03-05] MEDS ORDERED: hydrOXYzine PAMOATE 50 MG CAPSULE (FP) PO PRN (20:33)
[2018-03-05] MEDS ORDERED: ACETAMINOPHEN 325 MG TABLET (FP) PO PRN (20:33)
[2018-03-05] MEDS ORDERED: MENTHOL/PHENOL 1 EACH UD MM PRN (20:33)
[2018-03-05] MEDS ORDERED: MAGNESIUM CITRATE 300 ML BOTTLE PO PRN (20:33)
[2018-03-05] MEDS ORDERED: LOPERAMIDE HCL 2 MG CAPSULE PO PRN (20:33)
[2018-03-05] MEDS: THIAMINE HCL 100 MG TABLET (FP) PO SCH (21:55)
[2018-03-05] MEDS: HYDROCHLOROTHIAZIDE 25 MG TABLET (FP) PO SCH (21:55)
[2018-03-05] MEDS: METOPROLOL TARTRATE 25 MG TABLET (FP) PO SCH (21:55)
[2018-03-05] MEDS: amLODIPine BESYLATE 10 MG TABLET (FP) PO SCH (21:55)
[2018-03-05] MEDS ORDERED: MELATONIN 5 MG TABLETS PO PRN (22:00)
[2018-03-05] MEDS: chlordiazePOXIDE HCL 25 MG CAPSULE PO SCH (22:03)
[2018-03-06] MEDS: chlordiazePOXIDE HCL 25 MG CAPSULE PO SCH ×4 (06:05→22:07)
[2018-03-06] MEDS: PRENATAL VITAMINS W/ FOLIC ACID TABLET (FP) PO SCH (10:33)
[2018-03-06] MEDS: NICOTINE 14 MG/24 HOURS TOPICAL PATCH TD SCH (10:34)
[2018-03-06 10:45] LABS: HEMATOCRIT 44.4 % (35.4-49); HEMOGLOBIN 14.6 GM/dL (11.7-16.9); MCH 31.4 pg (25.7-33.7); MCHC 32.8 g/dl (32.0-35.9); MEAN CELL VOLUME 95.7 fl (80-96); MEAN PLT VOLUME 9.6 fl (7.5-11.1); PLATELET COUNT 193 K/MM3 (134-434); RBC 4.64 M/mm3 (4.00-5.60); RDW 12.7 % (11.9-15.9); WHITE BLOOD COUNT 4.7 K/mm3 (4.0-10.0)
[2018-03-06 11:06] LABS: CHLORIDE 107 mmol/L (98-107); POTASSIUM 3.9 mmol/L (3.5-5.1); SODIUM 140 mmol/L (136-145)
[2018-03-06 11:15] LABS: ALBUMIN 3.9 g/dl (3.4-5.0); ALK PHOS 79 U/L (45-117); ANION GAP 9 (8-16); BILIRUBIN,TOTAL 0.5 mg/dL (0.2-1.0); BLOOD UREA NITROGEN 12 mg/dL (7-18); CALCIUM 9.3 mg/dL (8.5-10.1); CO2 24 mmol/L (21-32); GLUCOSE,RANDOM 103 mg/dL (74-106); SGOT/AST 24 U/L (15-37); SGPT/ALT 24 U/L (12-78); TOT PROT 7.9 g/dl (6.4-8.2)
--- NOTE | 2018-03-06 11:28 | PN ---
S CIWA - CIWA Score Nausea/Vomitin-No Nausea/No Vomiting Muscle Tremors: 4-Moderate,w/Arms Extend Anxiety: 4-Mod. Anxious/Guarded Agitation: 4-Moderately Restless Paroxysmal Sweats: 1-Minimal Palms Moist Orientation: 0-Oriented Tacttile Disturbances: 0-None Auditory Disturbances: 0-None Visual Disturbances: 0-None Headache: 0-None Present CIWA-Ar Total Score: 13 BHS Progress Note (SOAP) Subjective: PT C/O FATIGUE,SLIGHT TREMORS AND ANXIETY, SWEATS. Objective: 03/06/18 11:27 Vital Signs 03/06/18 03/06/18 03/06/18 03:30 04:00 04:30 Temperature Pulse Rate 88 90 92 H Respiratory 18 18 18 Rate Blood Pressure 03/06/18 03/06/18 03/06/18 05:00 05:30 06:00 Temperature Pulse Rate 94 H 97 H 92 H Respiratory 18 18 18 Rate Blood Pressure 03/06/18 03/06/18 03/06/18 06:30 06:43 07:00 Temperature 97 F L Pulse Rate 90 90 88 Respiratory 18 18 18 Rate Blood Pressure 137/81 03/06/18 03/06/18 03/06/18 07:30 08:00 09:00 Temperature Pulse Rate 88 85 84 Respiratory 18 18 20 Rate Blood Pressure 03/06/18 03/06/18 03/06/18 09:10 09:30 10:00 Temperature 97.7 F Pulse Rate 84 86 88 Respiratory 20 20 20 Rate Blood Pressure 150/76 03/06/18 03/06/18 10:30 11:00 Temperature Pulse Rate 86 88 Respiratory 20 20 Rate Blood Pressure Laboratory Tests 03/06/18 03/06/18 07:20 07:20 WBC 4.7 RBC 4.64 Hgb 14.6 Hct 44.4 MCV 95.7 MCH 31.4 MCHC 32.8 RDW 12.7 Plt Count 193 MPV 9.6 Sodium 140 Potassium 3.9 Chloride 107 Carbon Dioxide 24 Anion Gap 9 BUN 12 Creatinine 1.0 Creat Clearance w eGFR > 60 Random Glucose 103 Calcium 9.3 Total Bilirubin 0.5 D AST 24 ALT 24 Alkaline Phosphatase 79 D Total Protein 7.9 Albumin 3.9 OTHER LABS PENDING Assessment: 03/06/18 11:27 WITHDRAWAL SX Plan: CONTINUE DETOX INCREASE PO FLUIDS.
--- NOTE | 2018-03-06 12:06 | CONSULT ---
[facility] Psychiatric Consult - Data Date of interview: 03/06/18 Admission source: [facility] Identifying data: This is one of multiple admissions to [facility] for this 52 y/ o AA male seeking detox treatment on for alcohol and cocaine dependence.Patient is single,a father of one,domiciled,currently unemployed and supported on Public Assistance. Substance Abuse History: Confirmed by the patient in this session.Details in current [facility] report.Smoking history: Current every day smoker. Have you smoked in the past 12 months: Yes. Aproximately how many cigarettes per day: 10. Cigars Per Day: 0. Hx Chewing Tobacco Use: No. Initiated information on smoking cessation: Yes. 'Breaking Loose' booklet given: 03/05/18. - Substance & Tx. History. Hx Alcohol Use: Yes. Hx Substance Use: Yes. Substance Use Type : Alcohol, Cocaine. Hx Substance Use Treatment: Yes ([facility]). - Substances Abused. Alcohol. Route: Oral. Frequency: Daily. Amount used: 3/24oz of beer. Age of first use: 21. Date of Last Use: 03/05/18. Cocaine. Route: Inhalation. Frequency: 1-3 times last 30 days. Amount used: 1 bag. Age of first use: 27. Date of Last Use: 03/01/18 Medical History: Hypertension,hyperlipidemia and a history of orthosurgery for fracture of left ankle (hardware in place). (left ankle with hardware placement (pins & rosio)) Psychiatric History: Patient denies history of psychiatric hospitalizations.Diagnosed with Bipolar Disorder (2006).Mr Chavez still gets his outpatient psychiatric services at the [facility].Prescribed a regimen of seroquel 400 mg po bid (verified via review of recent pharmacy claims of 02/26/18 @ [facility]).Patient endorses adequate adherence to his medication.No history of suicide attempts. Physical/Sexual Abuse/Trauma History: Patient denies. Additional Comment: Urine Drug Screen Results: JC-Cocaine.Noted. Mental Status Exam - Mental Status Exam Alert and Oriented to: Time, Place, Person Cognitive Function: Good Patient Appearance: Well Groomed Mood: Withdrawn, Hopeful Affect: Appropriate, Normal Range Patient Behavior: Fatigued, Cooperative Speech Pattern: Clear, Appropriate Voice Loudness: Normal Thought Process: Intact, Goal Oriented Thought Disorder: Not Present Hallucinations: Denies Suicidal Ideation: Denies Homicidal Ideation: Denies Insight/Judgement: Fair Sleep: Poorly, Difficulty falling asleep Appetite: Good Muscle strength/Tone: Normal Psychiatric Findings - Problem List ([place] 1, 2,3) (1) Alcohol dependence with withdrawal Current Visit: Yes Status: Acute Qualifiers: Complication of substance-induced condition: uncomplicated Qualified Code(s ): F10.230 - Alcohol dependence with withdrawal, uncomplicated (2) Cocaine dependence Current Visit: Yes Status: Acute (3) Nicotine dependence Current Visit: Yes Status: Acute Qualifiers: Nicotine product type: cigarettes Substance use status: in withdrawal Qualified Code(s): F17.213 - Nicotine dependence, cigarettes, with withdrawal (4) Bipolar disorder Current Visit: Yes Status: Chronic Qualifiers: Comment: As per existing records and self-report. (5) Insomnia Current Visit: Yes Status: Acute - Initial Treatment Plan Initial Treatment Plan: Psychoeducation.Sleep hygiene discussed.Detoxification in progress.Seroquel 300 mg po bid.Side effects/benefits discussed with the patient.Mr Chavez is in agreement with this careplan.Observation.
--- NOTE | 2018-03-06 14:33 | EKG ---
Test Reason : Blood Pressure : / mmHG Vent. Rate : 094 BPM Atrial Rate : 094 BPM P-R Int : 176 ms QRS Dur : 108 ms QT Int : 342 ms P-R-T Axes : 062 015 050 degrees QTc Int : 427 ms NORMAL SINUS RHYTHM INCOMPLETE RIGHT BUNDLE BRANCH BLOCK BORDERLINE ECG WHEN COMPARED WITH ECG OF 10-OCT-2017 19:17, INCOMPLETE RIGHT BUNDLE BRANCH BLOCK IS NOW PRESENT Confirmed by FREIDA KOENIG, NHUNG ([id number]) on 03/06/2018 2:32:47 PM Referred By: Confirmed By:NHUNG GUAN MD
[2018-03-06 20:38] LABS: URINE APPEARANCE CLEAR; URINE BILIRUBIN NEGATIVE (<2.0 mg/dL); URINE COLOR COLORLESS; URINE GLUCOSE (UA) NEGATIVE (NEGATIVE); URINE KETONE NEGATIVE (NEGATIVE); URINE LEUK ESTERASE NEGATIVE (NEGATIVE); URINE NITRITE NEGATIVE (NEGATIVE); URINE PROTEIN NEGATIVE (NEGATIVE); URINE UROBILINOGEN NEGATIVE mg/dL (0.2-1.0)
[2018-03-06] MEDS: METOPROLOL TARTRATE 25 MG TABLET (FP) PO SCH (22:07)
[2018-03-06] MEDS: amLODIPine BESYLATE 10 MG TABLET (FP) PO SCH (22:07)
[2018-03-06] MEDS: QUEtiapine FUMARATE 300 MG TABLET PO SCH (22:07)
[2018-03-06] MEDS: THIAMINE HCL 100 MG TABLET (FP) PO SCH (22:07)
[2018-03-06] MEDS: HYDROCHLOROTHIAZIDE 25 MG TABLET (FP) PO SCH (22:09)
[2018-03-07] MEDS: chlordiazePOXIDE HCL 25 MG CAPSULE PO SCH ×3 (06:23→17:25)
[2018-03-07] MEDS: QUEtiapine FUMARATE 300 MG TABLET PO SCH (10:22)
[2018-03-07] MEDS: NICOTINE 14 MG/24 HOURS TOPICAL PATCH TD SCH (10:22)
[2018-03-07] MEDS: PRENATAL VITAMINS W/ FOLIC ACID TABLET (FP) PO SCH (10:22)
[2018-03-07] MEDS: FLUoxetine HCL 10 MG CAPSULE (FP) PO SCH (10:22)
--- NOTE | 2018-03-07 10:34 | PN ---
Psychiatric Progress Note Vital Signs: Vital Signs Period Temp Pulse Resp BP Sys/Beltran Pulse Ox Last 24 Hr 95.4 F-98.8 F 74-97 18-20 116-144/72-91 Date of Session: 03/07/18 Chief Complaint:: My preadmission medications HPI: Patient suffers Bipolar Disorder , currently stable onh Seroquel 400mg po bid prior to admission, patient insist on preatmisiion treatment plan continuations during detox protocol. Current Medications: Active Medications Generic Name Dose Route Start Last Admin Trade Name Freq PRN Reason Stop Dose Admin Acetaminophen 650 mg 03/05/18 20:33 Tylenol - PO Q4H PRN FEVER Al Hydroxide/Mg Hydroxide 30 ml 03/05/18 20:33 Mylanta Oral Suspension - PO Q6H PRN DYSPEPSIA Amlodipine Besylate 10 mg 03/05/18 22:00 03/06/18 22:07 Norvasc - PO 10 mg HS TIFFANIE Administration Chlordiazepoxide HCl 25 mg 03/06/18 23:00 03/07/18 10:22 Librium - PO 03/07/18 17:01 Not Given [id number] TIFFANIE Chlordiazepoxide HCl 15 mg 03/07/18 23:00 Librium - PO 03/08/18 17:01 [id number] TIFFANIE Chlordiazepoxide HCl 25 mg 03/05/18 20:33 Librium - PO 03/08/18 20:32 Q4H PRN WITHDRAWAL(CONT SUBST) Chlordiazepoxide HCl 10 mg 03/08/18 23:00 Librium - PO 03/09/18 17:01 R2C-NFW TIFFANIE Eucalyptus/Menthol/Phenol/Sorbitol 1 each 03/05/18 20:33 Cepastat Lozenge - MM Q4H PRN SORE THROAT Fluoxetine HCl 10 mg 03/07/18 10:00 03/07/18 10:22 Prozac - PO Not Given DAILY TIFFANIE Guaifenesin 10 ml 03/05/18 20:33 Robitussin Dm - PO Q6H PRN COUGH Hydrochlorothiazide 25 mg 03/05/18 22:00 03/06/18 22:09 Hctz - PO 25 mg HS TIFFANIE Administration Hydroxyzine Pamoate 50 mg 03/05/18 20:33 Vistaril - PO Q4H PRN AGITATION Ibuprofen 400 mg 03/05/18 20:33 Motrin - PO Q6H PRN PAIN LEVEL 4-6 Loperamide HCl 4 mg 03/05/18 20:33 Imodium - PO Q6H PRN DIARRHEA Magnesium Citrate 300 ml 03/05/18 20:33 Citroma - PO Q48H PRN CONSTIPATION Magnesium Hydroxide 30 ml 03/05/18 20:33 Milk Of Magnesia - PO DAILY PRN CONSTIPATION Melatonin 5 mg 03/05/18 22:00 Melatonin PO HS PRN INSOMNIA Metoprolol Tartrate 25 mg 03/05/18 22:00 03/06/18 22:07 Lopressor - PO 25 mg HS [facility] Administration Nicotine 14 mg 03/06/18 10:00 03/07/18 10:22 Nicoderm Patch - TD Not Given DAILY [facility] Nicotine Polacrilex 2 mg 03/05/18 20:33 Nicorette Gum - BC Q2H PRN NICOTINE REPLACEMENT RX Multivit/Folic Acid/Iron 1 tab 03/06/18 10:00 03/07/18 10:22 Vitamins (Sjr) - PO Not Given DAILY [facility] Pseudoephedrine/Triprolidine 1 combo 03/05/18 20:33 Actifed - PO TID PRN NASAL CONGESTION Quetiapine Fumarate 300 mg 03/06/18 22:00 03/07/18 10:22 Seroquel - PO Not Given BID TIFFANIE Thiamine HCl 100 mg 03/05/18 22:00 03/06/18 22:07 Vitamin B1 - PO 100 mg HS [facility] Administration Provider note:: Start Seroquel 400mg po bid Mental Status Exam - Mental Status Exam Alert and Oriented to: Person Cognitive Function: Fair Patient Appearance: Unkempt Mood: Anxious Affect: Mood Congruent Patient Behavior: Talkative, Cooperative Speech Pattern: Excessive Voice Loudness: Mildly Loud Thought Process: Goal Oriented Thought Disorder: Being Controlled Hallucinations: Denies Suicidal Ideation: Denies Homicidal Ideation: Denies Insight/Judgement: Fair Sleep: Difficulty falling asleep Appetite: Fair Muscle strength/Tone: Normal Gait/Station: Normal Additional Comments: Start Seroquel 400mg po bid
[2018-03-07] MEDS: QUEtiapine FUMARATE 400 MG TABLET PO SCH ×2 (11:24→22:21)
--- NOTE | 2018-03-07 15:05 | PN ---
[facility] CIWA - CIWA Score Nausea/Vomitin-No Nausea/No Vomiting Muscle Tremors: 2 Anxiety: 4-Mod. Anxious/Guarded Agitation: 4-Moderately Restless Paroxysmal Sweats: No Perspiration Orientation: 0-Oriented Tacttile Disturbances: 3-Moderate Itch/Numb/Burn Auditory Disturbances: 2-Mild Harshness/Frighten Visual Disturbances: 1-Very Mild Sensitivity Headache: 0-None Present CIWA-Ar Total Score: 16 BHS Progress Note (SOAP) Subjective: Interrupted sleep, Anxious, Tremors. Objective: PATIENT A & O X 3. NO ACUTE DISTRESS. 03/07/18 15:04 Vital Signs Temperature 97.6 F 03/07/18 13:09 Pulse Rate 88 03/07/18 13:09 Respiratory Rate 18 03/07/18 13:09 Blood Pressure 113/67 03/07/18 13:09 O2 Sat by Pulse Oximetry (%) Laboratory Tests 03/05/18 03/06/18 03/06/18 16:00 07:20 07:20 WBC 4.7 RBC 4.64 Hgb 14.6 Hct 44.4 MCV 95.7 MCH 31.4 MCHC 32.8 RDW 12.7 Plt Count 193 MPV 9.6 Sodium 140 Potassium 3.9 Chloride 107 Carbon Dioxide 24 Anion Gap 9 BUN 12 Creatinine 1.0 Creat Clearance w eGFR > 60 Random Glucose 103 Calcium 9.3 Total Bilirubin 0.5 D AST 24 ALT 24 Alkaline Phosphatase 79 D Total Protein 7.9 Albumin 3.9 Urine Color Colorless Urine Appearance Clear Urine pH 5.0 Ur Specific [place] 1.002 Urine Protein Negative Urine Glucose (UA) Negative Urine Ketones Negative Urine Blood Negative Urine Nitrite Negative Urine Bilirubin Negative Urine Urobilinogen Negative Ur Leukocyte Esterase Negative RPR Titer 03/06/18 07:20 WBC RBC Hgb Hct MCV MCH MCHC RDW Plt Count MPV Sodium Potassium Chloride Carbon Dioxide Anion Gap BUN Creatinine Creat Clearance w eGFR Random Glucose Calcium Total Bilirubin AST ALT Alkaline Phosphatase Total Protein Albumin Urine Color Urine Appearance Urine pH Ur Specific [place] Urine Protein Urine Glucose (UA) Urine Ketones Urine Blood Urine Nitrite Urine Bilirubin Urine Urobilinogen Ur Leukocyte Esterase RPR Titer Nonreactive LABS NOTED. Assessment: 03/07/18 15:04 WITHDRAWAL SYMPTOMS. Plan: CONTINUE DETOX.
[2018-03-07] MEDS: chlordiazePOXIDE 5 MG CAPSULE PO SCH (22:21)
[2018-03-07] MEDS: amLODIPine BESYLATE 10 MG TABLET (FP) PO SCH (22:21)
[2018-03-07] MEDS: HYDROCHLOROTHIAZIDE 25 MG TABLET (FP) PO SCH (22:21)
[2018-03-07] MEDS: METOPROLOL TARTRATE 25 MG TABLET (FP) PO SCH (22:21)
[2018-03-07] MEDS: THIAMINE HCL 100 MG TABLET (FP) PO SCH (22:22)
[2018-03-08] MEDS: chlordiazePOXIDE 5 MG CAPSULE PO SCH ×2 (06:16→10:16)
[2018-03-08 09:25] VITALS: BP 121/74; PULSE 70; TEMP 97.3
[2018-03-08] MEDS: PRENATAL VITAMINS W/ FOLIC ACID TABLET (FP) PO SCH (10:16)
[2018-03-08] MEDS: NICOTINE 14 MG/24 HOURS TOPICAL PATCH TD SCH (10:16)
[2018-03-08] MEDS: FLUoxetine HCL 10 MG CAPSULE (FP) PO SCH (10:16)
[2018-03-08] MEDS: QUEtiapine FUMARATE 400 MG TABLET PO SCH (10:16)
--- NOTE | 2018-03-08 14:23 | PN ---
BHS Progress Note (SOAP) Subjective: Patient denies current Detox symptoms and reports that he feels well overall. Objective: PATIENT A & O X 3, OBSERVED AMBULATING ON UNIT. NO ACUTE DISTRESS. 03/08/18 14:22 Vital Signs Temperature 97.3 F L 03/08/18 09:24 Pulse Rate 70 03/08/18 09:24 Respiratory Rate 18 03/08/18 09:24 Blood Pressure 121/74 03/08/18 09:24 O2 Sat by Pulse Oximetry (%) Laboratory Tests 03/05/18 03/06/18 03/06/18 16:00 07:20 07:20 WBC 4.7 RBC 4.64 Hgb 14.6 Hct 44.4 MCV 95.7 MCH 31.4 MCHC 32.8 RDW 12.7 Plt Count 193 MPV 9.6 Sodium 140 Potassium 3.9 Chloride 107 Carbon Dioxide 24 Anion Gap 9 BUN 12 Creatinine 1.0 Creat Clearance w eGFR > 60 Random Glucose 103 Calcium 9.3 Total Bilirubin 0.5 D AST 24 ALT 24 Alkaline Phosphatase 79 D Total Protein 7.9 Albumin 3.9 Urine Color Colorless Urine Appearance Clear Urine pH 5.0 Ur Specific [place] 1.002 Urine Protein Negative Urine Glucose (UA) Negative Urine Ketones Negative Urine Blood Negative Urine Nitrite Negative Urine Bilirubin Negative Urine Urobilinogen Negative Ur Leukocyte Esterase Negative RPR Titer 03/06/18 07:20 WBC RBC Hgb Hct MCV MCH MCHC RDW Plt Count MPV Sodium Potassium Chloride Carbon Dioxide Anion Gap BUN Creatinine Creat Clearance w eGFR Random Glucose Calcium Total Bilirubin AST ALT Alkaline Phosphatase Total Protein Albumin Urine Color Urine Appearance Urine pH Ur Specific [place] Urine Protein Urine Glucose (UA) Urine Ketones Urine Blood Urine Nitrite Urine Bilirubin Urine Urobilinogen Ur Leukocyte Esterase RPR Titer Nonreactive LABS NOTED. Assessment: 03/08/18 14:22 COMPLETION OF DETOX REGIMEN. Plan: PATIENT SCHEDULED FOR DISCHARGE FROM DETOX UNIT TODAY. PATIENT WILL GO TO [facility] ([place] FOR AFTERCARE.
--- NOTE | 2018-03-08 14:27 | DS ---
[facility] Detox Discharge Summary Admission Date: 03/05/18 Discharge Date: 03/08/18 - History Present History: Alcohol Dependence, Cocaine Dependence Additional Comments: PATIENT DENIES CURRENT DETOX SYMPTOMS AND REPORTS THAT HE FEELS WELL OVERALL AT TIME OF DISCHARGE FROM DETOX UNIT. PATIENT GOING ON TO [facility] ( [place]) FOR AFTERCARE. PATIENT WAS DISCHARGED FROM DETOX UNIT IN STABLE MEDICAL CONDITION. Pertinent Past History: HTN, Hyperlipidemia, Depression, Bipolar Disorder, Nicotine Dependence. - Physical Exam Results Vital Signs: Vital Signs Temperature 97.3 F L 03/08/18 09:24 Pulse Rate 70 03/08/18 09:24 Respiratory Rate 18 03/08/18 09:24 Blood Pressure 121/74 03/08/18 09:24 O2 Sat by Pulse Oximetry (%) Pertinent Admission Physical Exam Findings: WITHDRAWAL SYMPTOMS. Laboratory Tests 03/05/18 03/06/18 03/06/18 16:00 07:20 07:20 WBC 4.7 RBC 4.64 Hgb 14.6 Hct 44.4 MCV 95.7 MCH 31.4 MCHC 32.8 RDW 12.7 Plt Count 193 MPV 9.6 Sodium 140 Potassium 3.9 Chloride 107 Carbon Dioxide 24 Anion Gap 9 BUN 12 Creatinine 1.0 Creat Clearance w eGFR > 60 Random Glucose 103 Calcium 9.3 Total Bilirubin 0.5 D AST 24 ALT 24 Alkaline Phosphatase 79 D Total Protein 7.9 Albumin 3.9 Urine Color Colorless Urine Appearance Clear Urine pH 5.0 Ur Specific [place] 1.002 Urine Protein Negative Urine Glucose (UA) Negative Urine Ketones Negative Urine Blood Negative Urine Nitrite Negative Urine Bilirubin Negative Urine Urobilinogen Negative Ur Leukocyte Esterase Negative RPR Titer 03/06/18 07:20 WBC RBC Hgb Hct MCV MCH MCHC RDW Plt Count MPV Sodium Potassium Chloride Carbon Dioxide Anion Gap BUN Creatinine Creat Clearance w eGFR Random Glucose Calcium Total Bilirubin AST ALT Alkaline Phosphatase Total Protein Albumin Urine Color Urine Appearance Urine pH Ur Specific [place] Urine Protein Urine Glucose (UA) Urine Ketones Urine Blood Urine Nitrite Urine Bilirubin Urine Urobilinogen Ur Leukocyte Esterase RPR Titer Nonreactive LABS NOTED. - Treatment Hospital Course: Detox Protocol Followed, Detoxed Safely, Responded well, Discharged Condition Good, Rehab Referral Accepted Patient has Accepted a Rehab Referral to: [facility] ([place] . - Medication Discharge Medications: Ambulatory Orders Fluoxetine HCl [Prozac -] 10 mg PO DAILY #30 capsule 10/25/17 Quetiapine Fumarate [Seroquel -] 400 mg PO BID #60 tablet 10/25/17 Amlodipine Besylate [Norvasc -] 10 mg PO HS 03/05/18 Cholecalciferol (Vitamin D3) [Vitamin D3] 50,000 unit PO WEEKLY 03/05/18 Hydrochlorothiazide [Hctz -] 25 mg PO HS 03/05/18 Metoprolol Tartrate 25 mg PO HS 03/05/18 Simvastatin [Zocor -] 20 mg PO HS 03/05/18 Quetiapine Fumarate [Seroquel -] 400 mg PO BID #60 tablet 03/07/18 - Diagnosis (1) Alcohol dependence with withdrawal Status: Acute Qualifiers: Complication of substance-induced condition: uncomplicated Qualified Code(s ): F10.230 - Alcohol dependence with withdrawal, uncomplicated (2) Nicotine dependence Status: Acute Qualifiers: Nicotine product type: cigarettes Substance use status: in withdrawal Qualified Code(s): F17.213 - Nicotine dependence, cigarettes, with withdrawal (3) HTN (hypertension) Status: Chronic Qualifiers: Hypertension type: essential hypertension Qualified Code(s): I10 - Essential (primary) hypertension (4) Hyperlipidemia Status: Chronic Qualifiers: Hyperlipidemia type: unspecified Qualified Code(s): E78.5 - Hyperlipidemia , unspecified (5) Cocaine dependence Status: Acute Qualifiers: Substance use status: uncomplicated Qualified Code(s): F14.20 - Cocaine dependence, uncomplicated (6) Insomnia Status: Acute Qualifiers: Insomnia type: unspecified Qualified Code(s): G47.00 - Insomnia, unspecified (7) Bipolar disorder Status: Chronic Qualifiers: Active/Remission status: remission status unspecified - AMA Did Patient Leave Against Medical Advice: No
[2018-03-08] MEDS ORDERED: chlordiazePOXIDE HCL 10 MG CAPSULE PO SCH (23:00)
== END 2018-03-08 13:41 | disposition other institution (70) | DRG 774 ==
LOC: YASAS 16:15 → Y3N 20:57
PROVIDERS: ADMIT Internal Medicine; ATTEND Internal Medicine
PROC: HZ2ZZZZ Detoxification Services for Substance Abuse Treatment (ICD-10-PCS; principal; 2018-03-05)
DX: F10.230 Alcohol dependence with withdrawal, uncomplicated (principal); F14.20 Cocaine dependence, uncomplicated; F17.213 Nicotine dependence, cigarettes, with withdrawal; F31.9 Bipolar disorder, unspecified; I10 Essential (primary) hypertension; E78.5 Hyperlipidemia, unspecified; G47.00 Insomnia, unspecified
CPT/HCPCS: 36415; 80053; 81003; 85027; 86593; 93005; 93010

== ENCOUNTER 2018-03-08 13:53 | Inpatient (IN) | payer OTHER ==
[2018-03-08] MEDS ORDERED: guaiFENesin/D-METHORPHAN HB 10 ML UNIT-DOSE CUPS PO PRN (14:31)
[2018-03-08] MEDS ORDERED: MAGNESIUM CITRATE 300 ML BOTTLE PO PRN (14:31)
[2018-03-08] MEDS ORDERED: IBUPROFEN 400 MG TABLET (FP) PO PRN (14:31)
[2018-03-08] MEDS ORDERED: P-EPHED 60MG/TRIPROLIDI 2.5MG TABLET PO PRN (14:31)
[2018-03-08] MEDS ORDERED: MAG HYDROX/AL HYDROX/SIMETH 30 ML UNIT-DOSE CUP PO PRN (14:31)
[2018-03-08] MEDS ORDERED: MENTHOL/PHENOL 1 EACH UD MM PRN (14:31)
[2018-03-08] MEDS ORDERED: MAGNESIUM HYDROX 2400MG/30ML ORAL SUSPENSION 30 ML CUP PO PRN (14:31)
[2018-03-08] MEDS ORDERED: LOPERAMIDE HCL 2 MG CAPSULE PO PRN (14:31)
[2018-03-08] MEDS ORDERED: NICOTINE POLACRILEX 2 MG GUM BUC PRN (14:31)
--- NOTE | 2018-03-08 14:39 | HP ---
GUERO KOENIG Rehab Assess/Revision - Admission History Admitted to Rehab from: [facility] Date of Admission to Rehab: 03/08/2018 - Vital signs Vital Signs: NOTED; STABLE. - Findings Detox History & Physical reviewed: Yes Concur with findings: Yes Comments/Additional Findings: PATIENT'S MEDICAL / MEDICATION HISTORY REVIEWED PRIOR TO DISCHARGE FROM DETOX UNIT. PATIENT WAS DISCHARGED FROM DETOX UNIT TO BE TAKEN TO REHAB UNIT IN STABLE MEDICAL CONDITION. Inpatient Rehab Admission - Initial Determination Are CD services needed?: Yes Free of communicable disease: Yes Not in need of hospitalization: Yes - Rehab Admission Criteria Previous failed treatment: Yes Comorbidities: Yes Patient is meeting Inpatient Rehab admission criteria:: Yes
[2018-03-08] MEDS ORDERED: PATIENT'S OWN MEDICATION (NON-FORMULARY) (Cholecalciferol (Vitamin D3) [Vitamin D3] 50,000 PO SCH (14:45)
[2018-03-08 15:38] VITALS: BMI 16.9
--- NOTE | 2018-03-08 18:50 | PN ---
S Progress Note Note: was called by a nurse to enter order for seroquel 400 mg po bid, reviewed the chart, dosage confirmed, order for seroquel 400 m po bid placed.
[2018-03-08] MEDS: amLODIPine BESYLATE 10 MG TABLET (FP) PO SCH (21:21)
[2018-03-08] MEDS: ATORVASTATIN CA 10 MG TABLET (FP) PO SCH (21:22)
[2018-03-08] MEDS: METOPROLOL TARTRATE 25 MG TABLET (FP) PO SCH (21:22)
[2018-03-08] MEDS: HYDROCHLOROTHIAZIDE 25 MG TABLET (FP) PO SCH (21:22)
[2018-03-08] MEDS: QUEtiapine FUMARATE 400 MG TABLET PO SCH (21:22)
[2018-03-08] MEDS: THIAMINE HCL 100 MG TABLET (FP) PO SCH (21:22)
[2018-03-08] MEDS ORDERED: MELATONIN 5 MG TABLETS PO PRN (22:00)
[2018-03-09] MEDS: QUEtiapine FUMARATE 400 MG TABLET PO SCH ×2 (10:27→21:36)
[2018-03-09] MEDS: NICOTINE 14 MG/24 HOURS TOPICAL PATCH TD SCH (10:27)
[2018-03-09] MEDS: PRENATAL VITAMINS W/ FOLIC ACID TABLET (FP) PO SCH (10:27)
[2018-03-09] MEDS: HYDROCHLOROTHIAZIDE 25 MG TABLET (FP) PO SCH (21:36)
[2018-03-09] MEDS: ATORVASTATIN CA 10 MG TABLET (FP) PO SCH (21:36)
[2018-03-09] MEDS: amLODIPine BESYLATE 10 MG TABLET (FP) PO SCH (21:36)
[2018-03-09] MEDS: METOPROLOL TARTRATE 25 MG TABLET (FP) PO SCH (21:36)
[2018-03-09] MEDS: THIAMINE HCL 100 MG TABLET (FP) PO SCH (21:37)
[2018-03-10] MEDS ORDERED: PT OWN MED DRAWER 7, Y5N ONE (08:54)
[2018-03-10] MEDS: ERGOCALCIFEROL (VITAMIN D2) 50,000 UNIT CAPSULE (FP) PO SCH (10:04)
[2018-03-10] MEDS: NICOTINE 14 MG/24 HOURS TOPICAL PATCH TD SCH (10:04)
[2018-03-10] MEDS: QUEtiapine FUMARATE 400 MG TABLET PO SCH ×2 (10:04→21:20)
[2018-03-10] MEDS: PRENATAL VITAMINS W/ FOLIC ACID TABLET (FP) PO SCH (10:04)
[2018-03-10] MEDS: METOPROLOL TARTRATE 25 MG TABLET (FP) PO SCH (21:20)
[2018-03-10] MEDS: THIAMINE HCL 100 MG TABLET (FP) PO SCH (21:20)
[2018-03-10] MEDS: ATORVASTATIN CA 10 MG TABLET (FP) PO SCH (21:20)
[2018-03-10] MEDS: HYDROCHLOROTHIAZIDE 25 MG TABLET (FP) PO SCH (21:20)
[2018-03-10] MEDS: amLODIPine BESYLATE 10 MG TABLET (FP) PO SCH (21:21)
[2018-03-11] MEDS: NICOTINE 14 MG/24 HOURS TOPICAL PATCH TD SCH (09:52)
[2018-03-11] MEDS: PRENATAL VITAMINS W/ FOLIC ACID TABLET (FP) PO SCH (09:52)
[2018-03-11] MEDS: QUEtiapine FUMARATE 400 MG TABLET PO SCH ×2 (09:52→21:32)
--- NOTE | 2018-03-11 11:31 | HP ---
Psychiatrist Admission - Data Date of interview: 03/11/18 Identifying data: This is the third [facility] admission for this 52 years old single Black male, father of a 21 years old son , unemployed on public assistance, domiciled living in a roon in [facility] Medical History: Significant for hypertension, hyperlipidemia and history of pancreatitis and orthosurgery for fracture left ankle in 1997. Smokes cigarettes 1ppd Psychiatric History: Patient reports no history of psychiatric hospitalizations , was diagnosed with Bipolar in 2006, he is under the care of a psychiatrist Dr. Curiel at [facility], currently on Seroquel 40 mg po bid, denies history of suicidal attempts. Physical/Sexual Abuse/Trauma History: denies history of abuse Vital Signs: Vital Signs - 24 hr 03/10/18 03/11/18 03/11/18 21:59 00:30 03:30 Temperature Pulse Rate 101 H Respiratory 18 18 Rate Blood Pressure 121/82 03/11/18 06:34 Temperature 98.0 F Pulse Rate 85 Respiratory 18 Rate Blood Pressure 129/87 Allergies/Adverse Reactions: Allergies Allergy/AdvReac Type Severity Reaction Status Date / Time No Known Allergies Allergy Verified 03/05/18 20:38 Date of last physical exam: 03/11/18 Concur with the findings of this exam: Yes - Substance Abuse/Tx History Hx Alcohol Use: Yes (daily 3-24 oz beer) Hx Substance Use: Yes Substance Use Type: Cocaine (occasionally 1-3 times a month) Hx Substance Use Treatment: Yes Mental Status Exam - Mental Status Exam Alert and Oriented to: Time, Place, Person Cognitive Function: Good Patient Appearance: Well Groomed Mood: Hopeful Affect: Appropriate, Mood Congruent Patient Behavior: Appropriate, Cooperative Speech Pattern: Appropriate Voice Loudness: Normal Thought Process: Intact, Goal Oriented Thought Disorder: Not Present Hallucinations: Denies Suicidal Ideation: Denies Homicidal Ideation: Denies Insight/Judgement: Fair Sleep: Fair Appetite: Good Muscle strength/Tone: Normal Gait/Station: Normal Psychiatric Findings - Problem List ([place] 1, 2,3) (1) Cocaine abuse Current Visit: Yes Status: Acute (2) Alcohol dependence Current Visit: No Status: Acute (3) Nicotine dependence Current Visit: No Status: Acute Qualifiers: (4) Bipolar disorder Current Visit: No Status: Chronic Qualifiers: Comment: As per existing records and self-report. (5) HTN (hypertension) Current Visit: No Status: Chronic Qualifiers: - Initial Treatment Plan Initial Treatment Plan: will continue his current medications, monitor progress as needed.
[2018-03-11] MEDS: ATORVASTATIN CA 10 MG TABLET (FP) PO SCH (21:32)
[2018-03-11] MEDS: HYDROCHLOROTHIAZIDE 25 MG TABLET (FP) PO SCH (21:32)
[2018-03-11] MEDS: METOPROLOL TARTRATE 25 MG TABLET (FP) PO SCH (21:32)
[2018-03-11] MEDS: THIAMINE HCL 100 MG TABLET (FP) PO SCH (21:32)
[2018-03-11] MEDS: amLODIPine BESYLATE 10 MG TABLET (FP) PO SCH (21:32)
[2018-03-12] MEDS: PRENATAL VITAMINS W/ FOLIC ACID TABLET (FP) PO SCH (10:18)
[2018-03-12] MEDS: NICOTINE 14 MG/24 HOURS TOPICAL PATCH TD SCH (10:18)
[2018-03-12] MEDS: QUEtiapine FUMARATE 400 MG TABLET PO SCH ×2 (10:18→21:34)
[2018-03-12] MEDS: ATORVASTATIN CA 10 MG TABLET (FP) PO SCH (21:34)
[2018-03-12] MEDS: THIAMINE HCL 100 MG TABLET (FP) PO SCH (21:34)
[2018-03-12] MEDS: amLODIPine BESYLATE 10 MG TABLET (FP) PO SCH (21:34)
[2018-03-12] MEDS: HYDROCHLOROTHIAZIDE 25 MG TABLET (FP) PO SCH (21:34)
[2018-03-12] MEDS: METOPROLOL TARTRATE 25 MG TABLET (FP) PO SCH (21:35)
[2018-03-13] MEDS: PRENATAL VITAMINS W/ FOLIC ACID TABLET (FP) PO SCH (10:23)
[2018-03-13] MEDS: NICOTINE 14 MG/24 HOURS TOPICAL PATCH TD SCH (10:23)
[2018-03-13] MEDS: QUEtiapine FUMARATE 400 MG TABLET PO SCH ×2 (10:23→21:30)
[2018-03-13] MEDS: ACETAMINOPHEN 325 MG TABLET (FP) PO PRN (11:41)
[2018-03-13] MEDS: amLODIPine BESYLATE 10 MG TABLET (FP) PO SCH (21:30)
[2018-03-13] MEDS: HYDROCHLOROTHIAZIDE 25 MG TABLET (FP) PO SCH (21:30)
[2018-03-13] MEDS: THIAMINE HCL 100 MG TABLET (FP) PO SCH (21:30)
[2018-03-13] MEDS: METOPROLOL TARTRATE 25 MG TABLET (FP) PO SCH (21:30)
[2018-03-13] MEDS: ATORVASTATIN CA 10 MG TABLET (FP) PO SCH (21:30)
[2018-03-14] MEDS: ACETAMINOPHEN 325 MG TABLET (FP) PO PRN (09:06)
[2018-03-14] MEDS: NICOTINE 14 MG/24 HOURS TOPICAL PATCH TD SCH (09:09)
[2018-03-14] MEDS: PRENATAL VITAMINS W/ FOLIC ACID TABLET (FP) PO SCH (09:09)
[2018-03-14] MEDS: QUEtiapine FUMARATE 400 MG TABLET PO SCH ×2 (09:09→21:35)
[2018-03-14] MEDS: ATORVASTATIN CA 10 MG TABLET (FP) PO SCH (21:35)
[2018-03-14] MEDS: METOPROLOL TARTRATE 25 MG TABLET (FP) PO SCH (21:35)
[2018-03-14] MEDS: HYDROCHLOROTHIAZIDE 25 MG TABLET (FP) PO SCH (21:35)
[2018-03-14] MEDS: amLODIPine BESYLATE 10 MG TABLET (FP) PO SCH (21:35)
[2018-03-14] MEDS: THIAMINE HCL 100 MG TABLET (FP) PO SCH (21:35)
[2018-03-15] MEDS: NICOTINE 14 MG/24 HOURS TOPICAL PATCH TD SCH (10:21)
[2018-03-15] MEDS: QUEtiapine FUMARATE 400 MG TABLET PO SCH ×2 (10:21→21:20)
[2018-03-15] MEDS: PRENATAL VITAMINS W/ FOLIC ACID TABLET (FP) PO SCH (10:21)
[2018-03-15] MEDS: ACETAMINOPHEN 325 MG TABLET (FP) PO PRN (12:05)
[2018-03-15] MEDS: ATORVASTATIN CA 10 MG TABLET (FP) PO SCH (21:20)
[2018-03-15] MEDS: HYDROCHLOROTHIAZIDE 25 MG TABLET (FP) PO SCH (21:20)
[2018-03-15] MEDS: amLODIPine BESYLATE 10 MG TABLET (FP) PO SCH (21:20)
[2018-03-15] MEDS: METOPROLOL TARTRATE 25 MG TABLET (FP) PO SCH (21:20)
[2018-03-15] MEDS: THIAMINE HCL 100 MG TABLET (FP) PO SCH (21:20)
[2018-03-16] MEDS: NICOTINE 14 MG/24 HOURS TOPICAL PATCH TD SCH (10:06)
[2018-03-16] MEDS: PRENATAL VITAMINS W/ FOLIC ACID TABLET (FP) PO SCH (10:07)
[2018-03-16] MEDS: ACETAMINOPHEN 325 MG TABLET (FP) PO PRN (10:07)
[2018-03-16] MEDS: QUEtiapine FUMARATE 400 MG TABLET PO SCH ×2 (10:07→21:30)
[2018-03-16] MEDS: ATORVASTATIN CA 10 MG TABLET (FP) PO SCH (21:30)
[2018-03-16] MEDS: amLODIPine BESYLATE 10 MG TABLET (FP) PO SCH (21:30)
[2018-03-16] MEDS: THIAMINE HCL 100 MG TABLET (FP) PO SCH (21:30)
[2018-03-16] MEDS: METOPROLOL TARTRATE 25 MG TABLET (FP) PO SCH (21:30)
[2018-03-16] MEDS: HYDROCHLOROTHIAZIDE 25 MG TABLET (FP) PO SCH (21:30)
[2018-03-17 07:17] VITALS: TEMP 98
[2018-03-17] MEDS: PRENATAL VITAMINS W/ FOLIC ACID TABLET (FP) PO SCH (09:51)
[2018-03-17] MEDS: QUEtiapine FUMARATE 400 MG TABLET PO SCH ×2 (09:51→21:37)
[2018-03-17] MEDS: NICOTINE 14 MG/24 HOURS TOPICAL PATCH TD SCH (09:52)
[2018-03-17] MEDS: ERGOCALCIFEROL (VITAMIN D2) 50,000 UNIT CAPSULE (FP) PO SCH (15:22)
[2018-03-17] MEDS: ACETAMINOPHEN 325 MG TABLET (FP) PO PRN (19:04)
[2018-03-17] MEDS: HYDROCHLOROTHIAZIDE 25 MG TABLET (FP) PO SCH (21:37)
[2018-03-17] MEDS: amLODIPine BESYLATE 10 MG TABLET (FP) PO SCH (21:37)
[2018-03-17] MEDS: ATORVASTATIN CA 10 MG TABLET (FP) PO SCH (21:37)
[2018-03-17] MEDS: METOPROLOL TARTRATE 25 MG TABLET (FP) PO SCH (21:37)
[2018-03-17] MEDS: THIAMINE HCL 100 MG TABLET (FP) PO SCH (21:37)
[2018-03-18 06:50] VITALS: BP 135/82; PULSE 83
[2018-03-18] MEDS: ACETAMINOPHEN 325 MG TABLET (FP) PO PRN (06:54)
[2018-03-18] MEDS: PRENATAL VITAMINS W/ FOLIC ACID TABLET (FP) PO SCH (09:55)
[2018-03-18] MEDS: QUEtiapine FUMARATE 400 MG TABLET PO SCH (09:55)
[2018-03-18] MEDS: NICOTINE 14 MG/24 HOURS TOPICAL PATCH TD SCH (09:55)
--- NOTE | 2018-03-18 10:18 | PN ---
Psychiatric Progress Note Vital Signs: Vital Signs Period Temp Pulse Resp BP Sys/Beltran Pulse Ox Last 24 Hr 98.0 F 83-100 18-18 135-143/78-82 Date of Session: 03/18/18 Chief Complaint:: Discharge Note HPI: Patient addressing Alcohol and Cocaine dependence comorbid with Nicotine dependence and bipolar Disorder ROS: HTN Current Medications: Active Medications Generic Name Dose Route Start Last Admin Trade Name Freq PRN Reason Stop Dose Admin Acetaminophen 650 mg 03/08/18 14:31 03/18/18 06:54 Tylenol - PO 650 mg Q4H PRN Administration FEVER Al Hydroxide/Mg Hydroxide 30 ml 03/08/18 14:31 Mylanta Oral Suspension - PO Q6H PRN DYSPEPSIA Amlodipine Besylate 10 mg 03/08/18 22:00 03/17/18 21:37 Norvasc - PO 10 mg HS TIFFANIE Administration Atorvastatin Calcium 10 mg 03/08/18 22:00 03/17/18 21:37 Lipitor - PO 10 mg HS TIFFANIE Administration Ergocalciferol 50,000 unit 03/10/18 10:00 03/17/18 15:22 Drisdol - PO 50,000 unit Javed@1000 TIFFANIE Administration Eucalyptus/Menthol/Phenol/Sorbitol 1 each 03/08/18 14:31 Cepastat Lozenge - MM Q4H PRN SORE THROAT Guaifenesin 10 ml 03/08/18 14:31 Robitussin Dm - PO Q6H PRN COUGH Hydrochlorothiazide 25 mg 03/08/18 22:00 03/17/18 21:37 Hctz - PO 25 mg HS TIFFANIE Administration Ibuprofen 400 mg 03/08/18 14:31 03/13/18 06:28 Motrin - PO 400 mg Q6H PRN Administration Pain Level 4-6 Loperamide HCl 4 mg 03/08/18 14:31 Imodium - PO Q6H PRN DIARRHEA Magnesium Citrate 300 ml 03/08/18 14:31 Citroma - PO Q48H PRN CONSTIPATION Magnesium Hydroxide 30 ml 03/08/18 14:31 Milk Of Magnesia - PO DAILY PRN CONSTIPATION Melatonin 5 mg 03/08/18 22:00 Melatonin PO HS PRN INSOMNIA Metoprolol Tartrate 25 mg 03/08/18 22:00 03/17/18 21:37 Lopressor - PO 25 mg HS TIFFANIE Administration Nicotine 14 mg 03/09/18 10:00 03/18/18 09:55 Nicoderm Patch - TD Not Given DAILY TIFFANIE Nicotine Polacrilex 2 mg 03/08/18 14:31 Nicorette Gum - BUC Q2H PRN NICOTINE REPLACEMENT RX Multivit/Folic Acid/Iron 1 tab 03/09/18 10:00 03/18/18 09:55 Vitamins (Sjr) - PO 1 tab DAILY TIFFANIE Administration Pseudoephedrine/Triprolidine 1 combo 03/08/18 14:31 Actifed - PO TID PRN NASAL CONGESTION Quetiapine Fumarate 400 mg 03/08/18 22:00 03/18/18 09:55 Seroquel - PO 400 mg BID TIFFANIE Administration Thiamine HCl 100 mg 03/08/18 22:00 03/17/18 21:37 Vitamin B1 - PO 100 mg HS TIFFANIE Administration Current Side Effect: No Lab tests ordered: Yes Lab tests reviewed: Yes Provider note:: Patient has completed this program today. he has met his treatment goals and will continue to address his issues in outpatient treatment at [facility]. 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 He responded well to Seroquel 400 mg po BID. Script for 30 days supply of that medication is electronically transmitted to [facility] at [address] , [place] [address]. He is stable for discharge today Total face to face time:: 35
== END 2018-03-18 11:30 | disposition home or self-care (01) | DRG 772 ==
LOC: YASAS 13:53 → Y5N 13:55
PROVIDERS: ADMIT Psychiatry & Neurology Psychiatry; ATTEND Psychiatry & Neurology Psychiatry
PROC: HZ42ZZZ Group Counseling for Substance Abuse Treatment, Cognitive-Behavioral (ICD-10-PCS; principal; 2018-03-08)
DX: F10.20 Alcohol dependence, uncomplicated (principal); F14.10 Cocaine abuse, uncomplicated; F17.210 Nicotine dependence, cigarettes, uncomplicated; F31.9 Bipolar disorder, unspecified; I10 Essential (primary) hypertension; E78.5 Hyperlipidemia, unspecified

== ENCOUNTER 2018-05-21 10:21 | Inpatient (IN) | payer OTHER ==
[2018-05-21 11:02] VITALS: BMI 28.1
--- NOTE | 2018-05-21 12:24 | HP ---
CIWA Score - CIWA Score Nausea/Vomitin-No Nausea/No Vomiting Muscle Tremors: 2 Anxiety: 3 Agitation: 2 Paroxysmal Sweats: 2 Orientation: 1-Uncertain about Date (no distress) Tacttile Disturbances: 1-Very Mild Itch/Numbness Auditory Disturbances: 0-None Visual Disturbances: 0-None Headache: 1-Very Mild CIWA-Ar Total Score: 12 Admission ROS BHS - HPI Chief Complaint: alcohol withdrawal symptoms Allergies/Adverse Reactions: Allergies Allergy/AdvReac Type Severity Reaction Status Date / Time No Known Allergies Allergy Verified 05/21/18 10:29 History of Present Illness: 52 yo male with hx of chronic alcoholism and nicotine dependence is here seeking detox, this one of multiple admissions. Reports occasional cocaine use with last episode three days ago. Last detox [facility] 03/05/18-03/08/18 ad rehab 03/05 -03/18/18. PMHX: HTN, hypelipidemia, bipolar and anxiety. Denies visual or auditory hallucination. Denies suicidal / homicidal ideation or hx of suicide attempt. Reports no significant period of sobriety. Exam Limitations: No Limitations - Ebola screening Have you traveled outside of the country in the last 21 days: No Have you had contact with anyone from an Ebola affected area: No Have you been sick,other than usual withdrawal symptoms: No Do you have a fever: No - Review of Systems Constitutional: Changes in sleep EENT: reports: No Symptoms Reported Respiratory: reports: No Symptoms reported Cardiac: reports: No Symptoms Reported GI: reports: Abdominal cramping : reports: No Symptoms Reported Musculoskeletal: reports: No Symptoms Reported Integumentary: reports: No Symptoms Reported Neuro: reports: Headache Endocrine: reports: Increased Thirst Hematology: reports: Anemia Psychiatric: reports: Mood/Affect Appropiate, Orientated x3, Anxious Other Systems: Reviewed and Negative Patient History - Patient Medical History Hx Anemia: Yes Hx Asthma: No Hx Chronic Obstructive Pulmonary Disease (COPD): No Hx Cancer: No Hx Cardiac Disorders: No Hx Congestive Heart Failure: No Hx Hypertension: Yes Hx Hypercholesterolemia: Yes (no med) Hx Pacemaker: No HX Cerebrovascular Accident: No Hx Seizures: No Hx Dementia: No Hx Diabetes: No Hx Gastrointestinal Disorders: No Hx Liver Disease: No Hx Genitourinary Disorders: No Hx Sexually Transmitted Disorders: No Hx Renal Disease (ESRD): No Hx Thyroid Disease: No Hx Human Immunodeficiency Virus (HIV): No (declines testing at this time) Hx Hepatitis C: No Hx Depression: Yes Hx Suicide Attempt: No Hx Bipolar Disorder: Yes (seroquel use 400 mg BID as per Hx) Hx Schizophrenia: No - Patient Surgical History Past Surgical History: Yes Hx Neurologic Surgery: No Hx Cataract Extraction: No Hx Cardiac Surgery: No Hx Lung Surgery: No Hx Breast Surgery: No Hx Breast Biopsy: No Hx Abdominal Surgery: No Hx Appendectomy: No Hx Cholecystectomy: No Hx Genitourinary Surgery: No Hx Section: No Hx Orthopedic Surgery: Yes (left ankle with hardware placement (pins & rosio)1997) Anesthesia Reaction: No - PPD History Previous Implant?: Yes Documented Results: Negative w/proof Implanted On Prior [facility] Admission?: Yes Date: 10/12/17 Results: 0 mm PPD to be Administered?: No - Smoking Cessation Smoking history: Current every day smoker Have you smoked in the past 12 months: Yes Aproximately how many cigarettes per day: 10 Cigars Per Day: 0 Hx Chewing Tobacco Use: No Initiated information on smoking cessation: Yes 'Breaking Loose' booklet given: 05/21/18 - Substance & Tx. History Hx Alcohol Use: Yes Hx Substance Use: Yes Substance Use Type: Alcohol, Cocaine Hx Substance Use Treatment: Yes - Substances Abused Alcohol-beer Route: Oral Frequency: Daily Amount used: 5-6 (24 oz.) Age of first use: 20 Date of Last Use: 05/21/18 Family Disease History - Family Disease History Family Disease History: [place]: Mother, Respiratory: Son Admission Physical Exam S - Vital Signs Vital Signs: Vital Signs - 24 hr 05/21/18 11:00 Temperature 97.6 F Pulse Rate 105 H Respiratory 17 Rate Blood Pressure 137/87 - Physical General Appearance: Yes: Nourished, Appropriately Dressed, Sweating, Anxious HEENTM: Yes: EOMI, Hearing grossly Normal, Normal ENT Inspection, Normocephalic , Normal Voice, CHHAYA, Pharynx Normal, Tm's normal Respiratory: Yes: Chest Non-Tender, Lungs Clear, Normal Breath Sounds, No Respiratory Distress, No Accessory Muscle Use Breast: Yes: Breast Exam Deferred Cardiology: Yes: Regular Rhythm, Tachycardia Abdominal: Yes: Within Normal Limits Genitourinary: Yes: Within Normal Limits Back: Yes: Normal Inspection Musculoskeletal: Yes: full range of Motion, Gait Steady, Pelvis Stable Extremities: Yes: Within Normal Limits 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, Fully Oriented, Alert, Motor Strength 5/5, Depressed Affect Integumentary: Yes: Normal Color, Warm, Diaphoresis Lymphatic: Yes: Within Normal Limits - Diagnostic (1) Psychiatric disorder Current Visit: Yes Status: Suspected (2) Alcohol dependence with withdrawal Current Visit: Yes Status: Acute Qualifiers: Complication of substance-induced condition: uncomplicated Qualified Code(s ): F10.230 - Alcohol dependence with withdrawal, uncomplicated (3) Cocaine abuse Current Visit: Yes Status: Acute (4) Nicotine dependence Current Visit: Yes Status: Acute Qualifiers: Nicotine product type: cigarettes (5) HTN (hypertension) Current Visit: Yes Status: Chronic Qualifiers: Hypertension type: essential hypertension (6) Hyperlipidemia Current Visit: Yes Status: Chronic Qualifiers: Hyperlipidemia type: unspecified Qualified Code(s): E78.5 - Hyperlipidemia , unspecified Cleared for Admission [facility] - Detox or Rehab [facility] Level of Care: Medically Managed Detox Regimen/Protocol: Librium [facility] Breath Alcohol Content Breath Alcohol Content: 0.210 Urine Drug Screen - Results Drug Screen Negative: No Urine Drug Screen Results: JC-Cocaine
[2018-05-21] MEDS ORDERED: P-EPHED 60MG/TRIPROLIDI 2.5MG TABLET PO PRN (12:28)
[2018-05-21] MEDS ORDERED: MAGNESIUM HYDROX 2400MG/30ML ORAL SUSPENSION 30 ML CUP PO PRN (12:28)
[2018-05-21] MEDS ORDERED: hydrOXYzine PAMOATE 50 MG CAPSULE (FP) PO PRN (12:28)
[2018-05-21] MEDS ORDERED: IBUPROFEN 400 MG TABLET (FP) PO PRN (12:28)
[2018-05-21] MEDS ORDERED: guaiFENesin/D-METHORPHAN HB 10 ML UNIT-DOSE CUPS PO PRN (12:28)
[2018-05-21] MEDS ORDERED: chlordiazePOXIDE HCL 25 MG CAPSULE PO PRN (12:28)
[2018-05-21] MEDS ORDERED: NICOTINE POLACRILEX 2 MG GUM BUC PRN (12:28)
[2018-05-21] MEDS ORDERED: LOPERAMIDE HCL 2 MG CAPSULE PO PRN (12:28)
[2018-05-21] MEDS ORDERED: MAG HYDROX/AL HYDROX/SIMETH 30 ML UNIT-DOSE CUP PO PRN (12:28)
[2018-05-21] MEDS ORDERED: ACETAMINOPHEN 325 MG TABLET (FP) PO PRN (12:28)
[2018-05-21] MEDS ORDERED: MENTHOL/PHENOL 1 EACH UD MM PRN (12:28)
[2018-05-21] MEDS ORDERED: MAGNESIUM CITRATE 300 ML BOTTLE PO PRN (12:28)
[2018-05-21] MEDS ORDERED: chlordiazePOXIDE HCL 25 MG CAPSULE PO ONE (13:00)
[2018-05-21 17:28] LABS: URINE APPEARANCE CLEAR; URINE BILIRUBIN NEGATIVE (<2.0 mg/dL); URINE COLOR LTYELLOW; URINE GLUCOSE (UA) NEGATIVE (NEGATIVE); URINE KETONE NEGATIVE (NEGATIVE); URINE LEUK ESTERASE NEGATIVE (NEGATIVE); URINE NITRITE NEGATIVE (NEGATIVE); URINE PROTEIN NEGATIVE (NEGATIVE); URINE UROBILINOGEN NEGATIVE mg/dL (0.2-1.0)
[2018-05-21] MEDS: chlordiazePOXIDE HCL 25 MG CAPSULE PO SCH ×2 (17:35→22:04)
[2018-05-21] MEDS ORDERED: MELATONIN 5 MG TABLETS PO PRN (22:00)
[2018-05-21] MEDS: amLODIPine BESYLATE 10 MG TABLET (FP) PO SCH (22:04)
[2018-05-21] MEDS: ATORVASTATIN CA 20 MG TABLET (FP) PO SCH (22:04)
[2018-05-21] MEDS: METOPROLOL TARTRATE 25 MG TABLET (FP) PO SCH (22:04)
[2018-05-21] MEDS: THIAMINE HCL 100 MG TABLET (FP) PO SCH (22:04)
[2018-05-22] MEDS: chlordiazePOXIDE HCL 25 MG CAPSULE PO SCH ×4 (06:05→22:08)
--- NOTE | 2018-05-22 09:01 | CONSULT ---
[facility] Psychiatric Consult - Data Date of interview: 05/22/18 Admission source: [facility] Identifying data: Patient is a 52 year old single male, father of one, unemployed and domiciled. This is one of multiple admissions for patient. Pt. admitted to for alcohol and cocaine dependence. Substance Abuse History: - Smoking Cessation. Smoking history: Current every day smoker. Have you smoked in the past 12 months: Yes. Aproximately how many cigarettes per day: 10. Cigars Per Day: 0. Hx Chewing Tobacco Use: No. Initiated information on smoking cessation: Yes. 'Breaking Loose' booklet given : 05/21/18. - Substance & Tx. History. Hx Alcohol Use: Yes. Hx Substance Use : Yes. Substance Use Type: Alcohol, Cocaine. Hx Substance Use Treatment: Yes. - Substances Abused. Alcohol-beer. Route: Oral. Frequency: Daily. Amount used: 5-6 (24 oz.). Age of first use: 20. Date of Last Use: 05/21/18 Medical History: left ankle with hardware placement (pins & rosio)1998, Anemia, hypertension, hypercholesterolemia Psychiatric History: Pt. denies h/o psychiatric hospitalization and suicide attempt. OPD is provided at the [facility] by Dr. Ocasio. Diagnosis of Bipolar disorder. Pt. is currently prescribed Seroquel 400mg BID. Pt. currently denies suicidal and homicidal ideation. Physical/Sexual Abuse/Trauma History: Denies. Mental Status Exam - Mental Status Exam Alert and Oriented to: Time, Place, Person Cognitive Function: Good Patient Appearance: Well Groomed Mood: Euthymic Affect: Mood Congruent Patient Behavior: Fatigued, Cooperative Speech Pattern: Appropriate Voice Loudness: Moderately Soft/Quiet Thought Process: Intact, Goal Oriented Thought Disorder: Not Present Hallucinations: Denies Suicidal Ideation: Denies Homicidal Ideation: Denies Insight/Judgement: Poor Sleep: Fair Appetite: Fair Muscle strength/Tone: Normal Gait/Station: Normal Psychiatric Findings - Problem List ([place] 1, 2,3) (1) Alcohol dependence with withdrawal Current Visit: Yes Status: Acute Qualifiers: Complication of substance-induced condition: uncomplicated Qualified Code(s ): F10.230 - Alcohol dependence with withdrawal, uncomplicated (2) Cocaine abuse Current Visit: Yes Status: Acute (3) Bipolar disorder Current Visit: Yes Status: Chronic Qualifiers: Comment: As per existing records and self-report. (4) Nicotine dependence Current Visit: Yes Status: Chronic Qualifiers: Nicotine product type: cigarettes Substance use status: in withdrawal Qualified Code(s): F17.213 - Nicotine dependence, cigarettes, with withdrawal - Initial Treatment Plan Initial Treatment Plan: Psychoeducation provided. Detoxification in progress. Seroquel 200mg BID ordered. Benefits and side effects discussed. Verbal consent given.
[2018-05-22] MEDS: HYDROCHLOROTHIAZIDE 25 MG TABLET (FP) PO SCH (10:13)
[2018-05-22] MEDS: PRENATAL VITAMINS W/ FOLIC ACID TABLET (FP) PO SCH (10:13)
[2018-05-22] MEDS: NICOTINE 14 MG/24 HOURS TOPICAL PATCH TD SCH (10:13)
--- NOTE | 2018-05-22 10:31 | EKG ---
Test Reason : Blood Pressure : / mmHG Vent. Rate : 102 BPM Atrial Rate : 102 BPM P-R Int : 170 ms QRS Dur : 100 ms QT Int : 336 ms P-R-T Axes : 062 025 048 degrees QTc Int : 437 ms SINUS TACHYCARDIA OTHERWISE NORMAL ECG WHEN COMPARED WITH ECG OF 05-MAR-2018 22:00, NO SIGNIFICANT CHANGE WAS FOUND Confirmed by NHUNG GUAN MD ([id number]) on 05/22/2018 10:30:52 AM Referred By: Confirmed By:NUHNG GUAN MD
[2018-05-22] MEDS: QUEtiapine FUMARATE 200 MG TABLET PO SCH ×2 (10:49→22:08)
[2018-05-22 10:51] LABS: HEMATOCRIT 41.6 % (35.4-49); MCH 31.9 pg (25.7-33.7); MCHC 33.7 g/dl (32.0-35.9); MEAN CELL VOLUME 94.6 fl (80-96); MEAN PLT VOLUME 10.5 fl (7.5-11.1); PLATELET COUNT 176 K/MM3 (134-434); RDW 13.5 % (11.9-15.9); WHITE BLOOD COUNT 6.2 K/mm3 (4.0-10.0)
--- NOTE | 2018-05-22 11:09 | PN ---
S CIWA - CIWA Score Nausea/Vomitin-No Nausea/No Vomiting Muscle Tremors: 4-Moderate,w/Arms Extend Anxiety: 4-Mod. Anxious/Guarded Agitation: 4-Moderately Restless Paroxysmal Sweats: 1-Minimal Palms Moist Orientation: 0-Oriented Tacttile Disturbances: 0-None Auditory Disturbances: 0-None Visual Disturbances: 0-None Headache: 0-None Present CIWA-Ar Total Score: 13 BHS Progress Note (SOAP) Subjective: PT C/O ANXIETY,INTERMITTENT SLEEP. WANTS TO SEE THE PSYCH DOCTOR TODAY. Objective: 05/22/18 11:08 Vital Signs 05/22/18 05/22/18 05/22/18 03:30 06:16 09:25 Temperature 98.5 F 98.6 F Pulse Rate 91 H 85 Respiratory 18 18 18 Rate Blood Pressure 149/66 136/92 Laboratory Tests 05/21/18 14:30 Urine Color Ltyellow Urine Appearance Clear Urine pH 5.0 Ur Specific [place] 1.012 Urine Protein Negative Urine Glucose (UA) Negative Urine Ketones Negative Urine Blood Negative Urine Nitrite Negative Urine Bilirubin Negative Urine Urobilinogen Negative Ur Leukocyte Esterase Negative OTHER LABS PENDING Assessment: 05/22/18 11:09 WITHDRAWAL SX Plan: CONTINUE DETOX F/U WITH PSYCH CONSULT TODAY
[2018-05-22 11:39] LABS: ALBUMIN 3.9 g/dl (3.4-5.0); ANION GAP 14 (8-16); BILIRUBIN,TOTAL 0.4 mg/dL (0.2-1.0); BLOOD UREA NITROGEN 14 mg/dL (7-18); CHLORIDE 106 mmol/L (98-107); CO2 24 mmol/L (21-32); CREATININE 1.2 mg/dL (0.7-1.3); GLUCOSE,RANDOM 110 mg/dL (74-106); POTASSIUM 4.2 mmol/L (3.5-5.1); SGOT/AST 24 U/L (15-37); SGPT/ALT 21 U/L (12-78); SODIUM 144 mmol/L (136-145); TOT PROT 7.6 g/dl (6.4-8.2)
[2018-05-22 11:40] LABS: ALK PHOS 80 U/L (45-117)
[2018-05-22] MEDS: THIAMINE HCL 100 MG TABLET (FP) PO SCH (22:07)
[2018-05-22] MEDS: ATORVASTATIN CA 20 MG TABLET (FP) PO SCH (22:07)
[2018-05-22] MEDS: amLODIPine BESYLATE 10 MG TABLET (FP) PO SCH (22:07)
[2018-05-22] MEDS: METOPROLOL TARTRATE 25 MG TABLET (FP) PO SCH (22:07)
[2018-05-23] MEDS: chlordiazePOXIDE HCL 25 MG CAPSULE PO SCH (05:02)
--- NOTE | 2018-05-23 10:37 | PN ---
[facility] CIWA - CIWA Score Nausea/Vomitin-No Nausea/No Vomiting Muscle Tremors: 4-Moderate,w/Arms Extend Anxiety: 4-Mod. Anxious/Guarded Agitation: 3 Paroxysmal Sweats: 1-Minimal Palms Moist Orientation: 0-Oriented Tacttile Disturbances: 0-None Auditory Disturbances: 0-None Visual Disturbances: 0-None Headache: 0-None Present CIWA-Ar Total Score: 12 S Progress Note (SOAP) Subjective: PT C/O SWEATS, SLIGHT FATIGUE. REPORTS DETOX TAPER PROCEEDING WELL. PT REQUESTING FOR D/C TOMORROW. Objective: 05/23/18 10:39 Vital Signs 05/23/18 05/23/18 06:01 09:11 Temperature 97.1 F L 97 F L Pulse Rate 84 103 H Respiratory 18 20 Rate Blood Pressure 121/76 112/76 Laboratory Tests 05/21/18 05/22/18 05/22/18 14:30 05:50 05:50 WBC 6.2 RBC 4.40 Hgb 14.0 Hct 41.6 MCV 94.6 MCH 31.9 MCHC 33.7 RDW 13.5 Plt Count 176 MPV 10.5 Sodium 144 Potassium 4.2 Chloride 106 Carbon Dioxide 24 Anion Gap 14 BUN 14 Creatinine 1.2 Creat Clearance w eGFR > 60 Random Glucose 110 H Calcium 9.0 Total Bilirubin 0.4 AST 24 ALT 21 Alkaline Phosphatase 80 Total Protein 7.6 Albumin 3.9 Urine Color Ltyellow Urine Appearance Clear Urine pH 5.0 Ur Specific [place] 1.012 Urine Protein Negative Urine Glucose (UA) Negative Urine Ketones Negative Urine Blood Negative Urine Nitrite Negative Urine Bilirubin Negative Urine Urobilinogen Negative Ur Leukocyte Esterase Negative RPR Titer 05/22/18 05:50 WBC RBC Hgb Hct MCV MCH MCHC RDW Plt Count MPV Sodium Potassium Chloride Carbon Dioxide Anion Gap BUN Creatinine Creat Clearance w eGFR Random Glucose Calcium Total Bilirubin AST ALT Alkaline Phosphatase Total Protein Albumin Urine Color Urine Appearance Urine pH Ur Specific [place] Urine Protein Urine Glucose (UA) Urine Ketones Urine Blood Urine Nitrite Urine Bilirubin Urine Urobilinogen Ur Leukocyte Esterase RPR Titer Nonreactive Assessment: 05/23/18 10:40 SLIGHT WITHDRAWAL SX Plan: CONTINUE DETOX ADJUST LIBRIUM TAPER DIRECTED D/C IN THE MORNING IF PT STABLE.
[2018-05-23] MEDS: PRENATAL VITAMINS W/ FOLIC ACID TABLET (FP) PO SCH (11:03)
[2018-05-23] MEDS: HYDROCHLOROTHIAZIDE 25 MG TABLET (FP) PO SCH (11:04)
[2018-05-23] MEDS: QUEtiapine FUMARATE 200 MG TABLET PO SCH ×2 (11:04→22:39)
[2018-05-23] MEDS: NICOTINE 14 MG/24 HOURS TOPICAL PATCH TD SCH (11:05)
[2018-05-23] MEDS: chlordiazePOXIDE 5 MG CAPSULE PO SCH ×2 (11:06→17:37)
[2018-05-23] MEDS ORDERED: chlordiazePOXIDE 5 MG CAPSULE PO SCH (17:00)
[2018-05-23] MEDS: chlordiazePOXIDE HCL 10 MG CAPSULE PO SCH (22:39)
[2018-05-23] MEDS: THIAMINE HCL 100 MG TABLET (FP) PO SCH (22:39)
[2018-05-23] MEDS: amLODIPine BESYLATE 10 MG TABLET (FP) PO SCH (22:39)
[2018-05-23] MEDS: ATORVASTATIN CA 20 MG TABLET (FP) PO SCH (22:39)
[2018-05-23] MEDS: METOPROLOL TARTRATE 25 MG TABLET (FP) PO SCH (22:39)
[2018-05-24] MEDS: chlordiazePOXIDE HCL 10 MG CAPSULE PO SCH (05:27)
--- NOTE | 2018-05-24 08:26 | PN ---
S Progress Note (SOAP) Subjective: DETOX COMPLETED. ALERT O X 3. NAD. PT STATES HE HAS A PMD, DR. PONCHO KENYON AT [facility] WHO HE WILL FOLLOW UP WITH FOR MEDICAL MANAGEMENT OF HIS COMORBID CONDITIONS. PT REPORTS HE IS GOING BACK TO [facility] FOR AFTERCARE. Objective: 05/24/18 10:03 Vital Signs 05/24/18 05/24/18 05/24/18 03:29 06:00 09:25 Temperature 97.8 F 97.0 F L Pulse Rate 81 83 Respiratory 18 18 Rate Blood Pressure 132/86 112/75 Laboratory Tests 05/21/18 05/22/18 05/22/18 14:30 05:50 05:50 WBC 6.2 RBC 4.40 Hgb 14.0 Hct 41.6 MCV 94.6 MCH 31.9 MCHC 33.7 RDW 13.5 Plt Count 176 MPV 10.5 Sodium 144 Potassium 4.2 Chloride 106 Carbon Dioxide 24 Anion Gap 14 BUN 14 Creatinine 1.2 Creat Clearance w eGFR > 60 Random Glucose 110 H Calcium 9.0 Total Bilirubin 0.4 AST 24 ALT 21 Alkaline Phosphatase 80 Total Protein 7.6 Albumin 3.9 Urine Color Ltyellow Urine Appearance Clear Urine pH 5.0 Ur Specific [place] 1.012 Urine Protein Negative Urine Glucose (UA) Negative Urine Ketones Negative Urine Blood Negative Urine Nitrite Negative Urine Bilirubin Negative Urine Urobilinogen Negative Ur Leukocyte Esterase Negative RPR Titer 05/22/18 05:50 WBC RBC Hgb Hct MCV MCH MCHC RDW Plt Count MPV Sodium Potassium Chloride Carbon Dioxide Anion Gap BUN Creatinine Creat Clearance w eGFR Random Glucose Calcium Total Bilirubin AST ALT Alkaline Phosphatase Total Protein Albumin Urine Color Urine Appearance Urine pH Ur Specific [place] Urine Protein Urine Glucose (UA) Urine Ketones Urine Blood Urine Nitrite Urine Bilirubin Urine Urobilinogen Ur Leukocyte Esterase RPR Titer Nonreactive Assessment: 05/24/18 10:03 MEDICALLY STABLE Plan: D/C PT TODAY
[2018-05-24 09:27] VITALS: BP 112/75; PULSE 83; TEMP 97
--- NOTE | 2018-05-24 10:19 | DS ---
[facility] Detox Discharge Summary Admission Date: 05/21/18 Discharge Date: 05/24/18 - History Present History: Alcohol Dependence, Cocaine Dependence Additional Comments: DETOX COMPLETED. ALERT O X 3. NAD. FOLLOW UP WITH PMD DR. PONCHO KENYON FOR MEDICAL MANAGEMENT. PT REPORTS HE HAS OWN MEDS AT HOME. Pertinent Past History: PLEASE SEE DX BELOW - Physical Exam Results Vital Signs: Vital Signs Temperature 97.0 F L 05/24/18 09:25 Pulse Rate 83 05/24/18 09:25 Respiratory Rate 18 05/24/18 09:25 Blood Pressure 112/75 05/24/18 09:25 O2 Sat by Pulse Oximetry (%) Pertinent Admission Physical Exam Findings: WITHDRAWAL SX Laboratory Tests 05/21/18 05/22/18 05/22/18 14:30 05:50 05:50 WBC 6.2 RBC 4.40 Hgb 14.0 Hct 41.6 MCV 94.6 MCH 31.9 MCHC 33.7 RDW 13.5 Plt Count 176 MPV 10.5 Sodium 144 Potassium 4.2 Chloride 106 Carbon Dioxide 24 Anion Gap 14 BUN 14 Creatinine 1.2 Creat Clearance w eGFR > 60 Random Glucose 110 H Calcium 9.0 Total Bilirubin 0.4 AST 24 ALT 21 Alkaline Phosphatase 80 Total Protein 7.6 Albumin 3.9 Urine Color Ltyellow Urine Appearance Clear Urine pH 5.0 Ur Specific [place] 1.012 Urine Protein Negative Urine Glucose (UA) Negative Urine Ketones Negative Urine Blood Negative Urine Nitrite Negative Urine Bilirubin Negative Urine Urobilinogen Negative Ur Leukocyte Esterase Negative RPR Titer 05/22/18 05:50 WBC RBC Hgb Hct MCV MCH MCHC RDW Plt Count MPV Sodium Potassium Chloride Carbon Dioxide Anion Gap BUN Creatinine Creat Clearance w eGFR Random Glucose Calcium Total Bilirubin AST ALT Alkaline Phosphatase Total Protein Albumin Urine Color Urine Appearance Urine pH Ur Specific [place] Urine Protein Urine Glucose (UA) Urine Ketones Urine Blood Urine Nitrite Urine Bilirubin Urine Urobilinogen Ur Leukocyte Esterase RPR Titer Nonreactive - Treatment Hospital Course: Detox Protocol Followed, Detoxed Safely, Responded well, Discharged Condition Good, Rehab Referral Accepted Patient has Accepted a Rehab Referral to: [facility] - Medication Discharge Medications: Ambulatory Orders Cholecalciferol (Vitamin D3) [Vitamin D3] 50,000 unit PO WEEKLY 03/05/18 Simvastatin [Zocor -] 20 mg PO HS 03/05/18 Amlodipine Besylate [Norvasc -] 10 mg PO HS #30 tablet 03/18/18 Hydrochlorothiazide [Hctz -] 25 mg PO DAILY #30 tablet 03/18/18 Metoprolol Tartrate 25 mg PO HS #30 tablet 03/18/18 Quetiapine Fumarate [Seroquel -] 400 mg PO BID #30 tablet 03/18/18 - Diagnosis (1) Alcohol dependence with withdrawal Status: Acute Qualifiers: Complication of substance-induced condition: uncomplicated Qualified Code(s ): F10.230 - Alcohol dependence with withdrawal, uncomplicated (2) Nicotine dependence Status: Chronic Qualifiers: Nicotine product type: cigarettes Substance use status: in withdrawal Qualified Code(s): F17.213 - Nicotine dependence, cigarettes, with withdrawal (3) HTN (hypertension) Status: Chronic Qualifiers: Hypertension type: essential hypertension Qualified Code(s): I10 - Essential (primary) hypertension (4) Hyperlipidemia Status: Chronic Qualifiers: Hyperlipidemia type: unspecified Qualified Code(s): E78.5 - Hyperlipidemia , unspecified (5) Cocaine dependence Status: Acute Qualifiers: Substance use status: uncomplicated Qualified Code(s): F14.20 - Cocaine dependence, uncomplicated - AMA Did Patient Leave Against Medical Advice: No
[2018-05-24] MEDS ORDERED: chlordiazePOXIDE HCL 10 MG CAPSULE PO SCH (17:00)
== END 2018-05-24 08:51 | disposition home or self-care (01) | DRG 774 ==
LOC: YASAS 10:21 → Y3N 12:45
PROVIDERS: ADMIT Surgery; ATTEND Surgery
PROC: HZ2ZZZZ Detoxification Services for Substance Abuse Treatment (ICD-10-PCS; principal; 2018-05-21)
DX: F10.230 Alcohol dependence with withdrawal, uncomplicated (principal); F14.20 Cocaine dependence, uncomplicated; F17.213 Nicotine dependence, cigarettes, with withdrawal; F31.9 Bipolar disorder, unspecified; I10 Essential (primary) hypertension; E78.5 Hyperlipidemia, unspecified
CPT/HCPCS: 36415; 80053; 81003; 85027; 86593; 93005; 93010

== ENCOUNTER 2018-12-24 15:52 | Inpatient (IN) | payer OTHER ==
[2018-12-24 17:55] VITALS: BMI 28.2
--- NOTE | 2018-12-24 20:22 | HP ---
CIWA Score Nausea/Vomitin (vomiting x 3) Muscle Tremors: 3 Anxiety: 2 Agitation: 0-Normal Activity Paroxysmal Sweats: 3 Orientation: 0-Oriented Tacttile Disturbances: 0-None Auditory Disturbances: 0-None Visual Disturbances: 0-None Headache: 4-Moderately Severe CIWA-Ar Total Score: 15 - Admission Criteria OASAS Guidelines: Admission for Medically Managed Detox: Requires at least one of the followin. CIWA greater than 12 2. Seizures within the past 24 hours 3. Delirium tremens within the past 24 hours 4. Hallucinations within the past 24 hours 5. Acute intervention needed for co occurring medical disorder 6. Acute intervention needed for co occurring psychiatric disorder 7. Severe withdrawal that cannot be handled at a lower level of care (continued vomiting, continued diarrhea, abnormal vital signs) requiring intravenous medication and/or fluids 8. Admission ROS [facility] Chief Complaint: Alcohol withdrawal symptoms Allergies/Adverse Reactions: Allergies Allergy/AdvReac Type Severity Reaction Status Date / Time No Known Allergies Allergy Verified 12/24/18 19:05 History of Present Illness: 53 years old male with a long history of alcohol dependence is seeking admission to detox. Patient has been to previous detox and reports insignificant period of sobriety. He has medical history of hypertension, hyperlipidemia, peripheral edema, anxiety and depression. Patient reports incidence of blackouts secondary to alcohol use. He denies suicide attempt or suicidal ideation at this time. Patient is in an outpatient program with Tabitha at [facility]. Exam Limitations: No Limitations - Ebola screening Have you traveled outside of the country in the last 21 days: No Have you had contact with anyone from an Ebola affected area: No Have you been sick,other than usual withdrawal symptoms: No Do you have a fever: No - Review of Systems Constitutional: Loss of Appetite, Malaise, Night Sweats, Changes in sleep EENT: reports: No Symptoms Reported, Sinus Pressure Respiratory: reports: No Symptoms reported GI: reports: Poor Appetite, Poor Fluid Intake, Vomiting (x 3), Abdominal cramping : reports: No Symptoms Reported Musculoskeletal: reports: No Symptoms Reported Integumentary: reports: Dryness, Flushing Neuro: reports: Tremors Endocrine: reports: No Symptoms Reported Hematology: reports: No Symptoms Reported Psychiatric: reports: Mood/Affect Appropiate, Orientated x3, Anxious, Depressed Other Systems: Reviewed and Negative Patient History - Patient Medical History Hx Anemia: No Hx Asthma: No Hx Chronic Obstructive Pulmonary Disease (COPD): No Hx Cancer: No Hx Cardiac Disorders: No Hx Congestive Heart Failure: No Hx Hypertension: Yes (Amlodipine, HCTZ) Hx Hypercholesterolemia: Yes (Simvastatin) Hx Pacemaker: No HX Cerebrovascular Accident: No Hx Seizures: No Hx Dementia: No Hx Diabetes: No Hx Gastrointestinal Disorders: No Hx Liver Disease: No Hx Genitourinary Disorders: No Hx Sexually Transmitted Disorders: No Hx Renal Disease (ESRD): No Hx Thyroid Disease: No Hx Human Immunodeficiency Virus (HIV): No (declines testing at this time) Hx Hepatitis C: No Hx Depression: Yes (Seroquel) Hx Suicide Attempt: No Hx Bipolar Disorder: Yes (Seroquel use 400 mg BID as per Hx) Hx Schizophrenia: No Other Medical History: Anxiety - Not on medication - Patient Surgical History Past Surgical History: Yes Hx Neurologic Surgery: No Hx Cataract Extraction: No Hx Cardiac Surgery: No Hx Lung Surgery: No Hx Breast Surgery: No Hx Breast Biopsy: No Hx Abdominal Surgery: No Hx Appendectomy: No Hx Cholecystectomy: No Hx Genitourinary Surgery: No Hx Section: No Hx Orthopedic Surgery: Yes (left ankle with hardware placement (pins & rosio)1997) Anesthesia Reaction: No - PPD History Previous Implant?: Yes Documented Results: Positive w/proof Implanted On Prior R Admission?: Yes Date: 10/12/17 Results: 0 mm PPD to be Administered?: Yes - Reproductive History Patient is a Female of Child Bearing Age (11 -55 yrs old): No (Male) - Smoking Cessation Smoking history: Current every day smoker Have you smoked in the past 12 months: Yes Aproximately how many cigarettes per day: 10 Cigars Per Day: 0 Hx Chewing Tobacco Use: No Initiated information on smoking cessation: Yes 'Breaking Loose' booklet given: 12/24/18 - Substances Abused Alcohol Route: Oral Frequency: Daily Amount used: LIQUOR (VODKA)- 3 PINTS, BEER- 1 SIX PACK(24oz) Age of first use: 20 Date of Last Use: 12/24/18 Cocaine Route: Inhalation Frequency: 1-2 times per week Amount used: 3 Age of first use: 20 Date of Last Use: 12/23/18 Marijuana/Hashish Route: Smoking Frequency: No use in 30 days Amount used: 1 bag Age of first use: 20 Date of Last Use: 12/17/18 Family Disease History - Family Disease History Family Disease History: CA: Mother (Breast Ca), Respiratory: Son (Asthma) Admission Physical Exam [facility] - Vital Signs Vital Signs: Vital Signs - 24 hr 12/24/18 17:53 Temperature 98.8 F Pulse Rate 106 H Respiratory 18 Rate Blood Pressure 138/80 - Physical General Appearance: Yes: Moderate Distress, Tremorous, Sweating, Anxious HEENTM: Yes: Normal ENT Inspection, Normocephalic, Normal Voice, CHHAYA Respiratory: Yes: Lungs Clear, Normal Breath Sounds, No Respiratory Distress Neck: Yes: Supple Breast: Yes: Breast Exam Deferred Cardiology: Yes: Tachycardia Abdominal: Yes: Normal Bowel Sounds, Soft Genitourinary: Yes: Within Normal Limits Back: Yes: Normal Inspection Musculoskeletal: Yes: Within Normal Limits Extremities: Yes: Normal Inspection Neurological: Yes: Alert, Normal Mood/Affect Integumentary: Yes: Warm Lymphatic: Yes: Within Normal Limits - Diagnostic (1) Marijuana dependence Current Visit: Yes Status: Chronic (2) Alcohol dependence with withdrawal Current Visit: Yes Status: Chronic Qualifiers: Complication of substance-induced condition: uncomplicated Qualified Code(s ): F10.230 - Alcohol dependence with withdrawal, uncomplicated (3) Cocaine dependence Current Visit: Yes Status: Chronic Qualifiers: Substance use status: uncomplicated Qualified Code(s): F14.20 - Cocaine dependence, uncomplicated (4) HTN (hypertension) Current Visit: Yes Status: Chronic Qualifiers: Hypertension type: essential hypertension Qualified Code(s): I10 - Essential (primary) hypertension (5) Hyperlipidemia Current Visit: Yes Status: Chronic Qualifiers: Hyperlipidemia type: unspecified Qualified Code(s): E78.5 - Hyperlipidemia , unspecified (6) Nicotine dependence Current Visit: Yes Status: Chronic Qualifiers: Nicotine product type: cigarettes Substance use status: uncomplicated Qualified Code(s): F17.210 - Nicotine dependence, cigarettes, uncomplicated (7) Peripheral edema Current Visit: Yes Status: Chronic Cleared for Admission [facility] - Detox or Rehab [facility] Level of Care: Medically Managed Detox Regimen/Protocol: Librium [facility] Breath Alcohol Content Breath Alcohol Content: 0 Urine Drug Screen - Results Drug Screen Negative: No Urine Drug Screen Results: THC-Marijuana, JC-Cocaine, MET-Methamphetamine Inpatient Rehab Admission - Rehab Decision to Admit Inpatient rehab admission?: No
[2018-12-24] MEDS ORDERED: MAGNESIUM HYDROX 2400MG/30ML ORAL SUSPENSION 30 ML CUP PO PRN (20:35)
[2018-12-24] MEDS ORDERED: hydrOXYzine PAMOATE 25 MG CAPSULE (FP) PO PRN (20:35)
[2018-12-24] MEDS ORDERED: METHOCARBAMOL 500 MG TABLET PO PRN (20:35)
[2018-12-24] MEDS ORDERED: MAG HYDROX/AL HYDROX/SIMETH 30 ML UNIT-DOSE CUP PO PRN (20:35)
[2018-12-24] MEDS ORDERED: ACETAMINOPHEN 325 MG TABLET (FP) PO PRN ×2 (20:35)
[2018-12-24] MEDS ORDERED: BISMUTH SUBSALICYLATE 524 MG/30 ML UD PO PRN (20:35)
[2018-12-24] MEDS ORDERED: NICOTINE POLACRILEX 2 MG GUM BUC PRN (20:35)
[2018-12-24] MEDS ORDERED: MAGNESIUM CITRATE 300 ML BOTTLE PO PRN (20:35)
[2018-12-24] MEDS ORDERED: MENTHOL/PHENOL 1 EACH UD MM PRN (20:35)
[2018-12-24] MEDS ORDERED: chlordiazePOXIDE HCL 25 MG CAPSULE PO PRN (20:35)
[2018-12-24] MEDS ORDERED: IBUPROFEN 400 MG TABLET (FP) PO PRN (20:35)
[2018-12-24] MEDS: THIAMINE HCL 100 MG TABLET (FP) PO SCH (22:29)
[2018-12-24] MEDS: MELATONIN 5 MG TABLETS PO PRN (22:29)
[2018-12-24] MEDS: chlordiazePOXIDE HCL 25 MG CAPSULE PO SCH (22:29)
[2018-12-25] MEDS: chlordiazePOXIDE HCL 25 MG CAPSULE PO SCH ×4 (05:20→22:19)
--- NOTE | 2018-12-25 07:42 | CONSULT ---
[facility] Psychiatric Consult - Data Date of interview: 12/25/18 Admission source: Self-referred Identifying data: Mr Chavez is a 53 years old single Black male, father of a 22 years old son, unemployed receiving food stamp, domiciled seeking detox treatment for alcohol, cocaine and cannabis Substance Abuse History: Reports history of alcohol, cocaine and marijuana use. Refer to internal control specialist's summary for further information Medical History: Significant for hypertension, dyslipidemia, and history of orthosurgery for frature of left ankle in 1997. Smokes 10 cigarettes daily Psychiatric History: Patient reports that his first psychiatric contact was in 2006 when he saw a psychiatrist at [facility], diagnosed with Bipolar Disorder and started on Seroquel. Told commercial insurance underwriter that he has been receining outpatient psychiatric treatment at that same clinic since. He currently sees Dr. Ocasio and he is prescribed Seroquel 400mg BID. Denies previous psychiatric hospitalization or suicidal attempt. At present, reports feeling depressed and sleeping poorly Physical/Sexual Abuse/Trauma History: Denies historyof emotional, physical or sexual abuse as well as DV relationship. No service Additional Comment: Reports history of previous arrests including 2 felony convictions. No parole/probation at present Mental Status Exam - Mental Status Exam Alert and Oriented to: Time, Place, Person Cognitive Function: Fair Patient Appearance: Disheveled Mood: Depressed Affect: Appropriate Patient Behavior: Cooperative Speech Pattern: Clear Voice Loudness: Normal Thought Process: Intact, Goal Oriented Thought Disorder: Not Present Hallucinations: Denies Suicidal Ideation: Denies Homicidal Ideation: Denies Insight/Judgement: Poor Sleep: Poorly Appetite: Good Muscle strength/Tone: Normal Gait/Station: Normal Psychiatric Findings - Problem List ([place] 1, 2,3) (1) Bipolar disorder Current Visit: No Status: Chronic Qualifiers: Comment: As per existing records and self-report. (2) Substance induced mood disorder Current Visit: Yes Status: Acute (3) Substance-induced sleep disorder Current Visit: Yes Status: Acute (4) Alcohol dependence with withdrawal Current Visit: Yes Status: Acute Qualifiers: Complication of substance-induced condition: uncomplicated Qualified Code(s ): F10.230 - Alcohol dependence with withdrawal, uncomplicated (5) Cocaine dependence Current Visit: Yes Status: Acute Qualifiers: Substance use status: uncomplicated Qualified Code(s): F14.20 - Cocaine dependence, uncomplicated (6) Cannabis dependence Current Visit: Yes Status: Acute (7) Nicotine dependence Current Visit: Yes Status: Chronic Qualifiers: Nicotine product type: cigarettes Substance use status: uncomplicated Qualified Code(s): F17.210 - Nicotine dependence, cigarettes, uncomplicated (8) HTN (hypertension) Current Visit: Yes Status: Chronic Qualifiers: Hypertension type: essential hypertension Qualified Code(s): I10 - Essential (primary) hypertension (9) Hyperlipidemia Current Visit: Yes Status: Chronic Qualifiers: Hyperlipidemia type: unspecified Qualified Code(s): E78.5 - Hyperlipidemia , unspecified - Initial Treatment Plan Initial Treatment Plan: 1) Start Seroquel 400mg po HS(medication dosage modified to prevent sedation due to drug-drug interaction). 2) Continue inpatient detoxification
--- NOTE | 2018-12-25 10:19 | EKG ---
Test Reason : Blood Pressure : / mmHG Vent. Rate : 102 BPM Atrial Rate : 102 BPM P-R Int : 162 ms QRS Dur : 092 ms QT Int : 332 ms P-R-T Axes : 066 028 056 degrees QTc Int : 432 ms SINUS TACHYCARDIA OTHERWISE NORMAL ECG WHEN COMPARED WITH ECG OF 21-MAY-2018 13:30, NO SIGNIFICANT CHANGE WAS FOUND Confirmed by NHUNG GUAN MD ([id number]) on 12/25/2018 10:19:12 AM Referred By: Confirmed By:NHUNG GUAN MD
[2018-12-25] MEDS: PRENATAL VITAMINS W/ FOLIC ACID TABLET (FP) PO SCH (10:34)
[2018-12-25] MEDS: NICOTINE 14 MG/24 HOURS TOPICAL PATCH TD SCH (10:34)
[2018-12-25 10:38] LABS: ALBUMIN 3.3 g/dl (3.4-5.0); ALK PHOS 89 U/L (45-117); ANION GAP 6 MMOL/L (8-16); BILIRUBIN,TOTAL 0.5 mg/dL (0.2-1); BLOOD UREA NITROGEN 13 mg/dL (7-18); CALCIUM 8.6 mg/dL (8.5-10.1); CHLORIDE 106 mmol/L (98-107); CO2 26 mmol/L (21-32); CREATININE 1.1 mg/dL (0.55-1.3); GLUCOSE,RANDOM 106 mg/dL (74-106); SGOT/AST 25 U/L (15-37); SGPT/ALT 23 U/L (13-61); SODIUM 139 mmol/L (136-145); TOT PROT 6.6 g/dl (6.4-8.2)
[2018-12-25 10:54] LABS: HEMATOCRIT 41.5 % (35.4-49); HEMOGLOBIN 13.8 GM/dL (11.7-16.9); MCH 32.3 pg (25.7-33.7); MCHC 33.4 g/dl (32.0-35.9); MEAN CELL VOLUME 96.8 fl (80-96); MEAN PLT VOLUME 9.3 fl (7.5-11.1); PLATELET COUNT 188 K/MM3 (134-434); RBC 4.28 M/mm3 (4.00-5.60); RDW 12.7 % (11.9-15.9); WHITE BLOOD COUNT 4.3 K/mm3 (4.0-10.0)
--- NOTE | 2018-12-25 11:17 | PN ---
[facility] CIWA - CIWA Score Nausea/Vomitin-Mild Nausea/No Vomiting Muscle Tremors: 3 Anxiety: 1-Mildly Anxious Agitation: 2 Paroxysmal Sweats: 1-Minimal Palms Moist Orientation: 1-Uncertain about Date Tacttile Disturbances: 0-None Auditory Disturbances: 0-None Visual Disturbances: 0-None Headache: 1-Very Mild CIWA-Ar Total Score: 10 S Progress Note (SOAP) Subjective: tremor anxiety sweating restlessness Objective: 12/25/18 11:20 Vital Signs Temperature 97 F L 12/25/18 09:11 Pulse Rate 99 H 12/25/18 10:36 Respiratory Rate 18 12/25/18 10:36 Blood Pressure 149/80 12/25/18 10:36 O2 Sat by Pulse Oximetry (%) Laboratory Last Values WBC 4.3 K/mm3 (4.0-10.0) 12/25/18 07:00 RBC 4.28 M/mm3 (4.00-5.60) 12/25/18 07:00 Hgb 13.8 GM/dL (11.7-16.9) 12/25/18 07:00 Hct 41.5 % (35.4-49) 12/25/18 07:00 MCV 96.8 fl (80-96) H 12/25/18 07:00 MCH 32.3 pg (25.7-33.7) 12/25/18 07:00 MCHC 33.4 g/dl (32.0-35.9) 12/25/18 07:00 RDW 12.7 % (11.9-15.9) 12/25/18 07:00 Plt Count 188 K/MM3 (134-434) 12/25/18 07:00 MPV 9.3 fl (7.5-11.1) D 12/25/18 07:00 Sodium 139 mmol/L (136-145) 12/25/18 07:00 Potassium 4.0 mmol/L (3.5-5.1) 12/25/18 07:00 Chloride 106 mmol/L (98-107) 12/25/18 07:00 Carbon Dioxide 26 mmol/L (21-32) 12/25/18 07:00 Anion Gap 6 MMOL/L (8-16) L 12/25/18 07:00 BUN 13 mg/dL (7-18) 12/25/18 07:00 Creatinine 1.1 mg/dL (0.55-1.3) 12/25/18 07:00 Creat Clearance w eGFR > 60 (>60) 12/25/18 07:00 Random Glucose 106 mg/dL (74-106) 12/25/18 07:00 Calcium 8.6 mg/dL (8.5-10.1) 12/25/18 07:00 Total Bilirubin 0.5 mg/dL (0.2-1) 12/25/18 07:00 AST 25 U/L (15-37) 12/25/18 07:00 ALT 23 U/L (13-61) 12/25/18 07:00 Alkaline Phosphatase 89 U/L (45-117) 12/25/18 07:00 Total Protein 6.6 g/dl (6.4-8.2) 12/25/18 07:00 Albumin 3.3 g/dl (3.4-5.0) L 12/25/18 07:00 lab noted Assessment: 12/25/18 11:20 withdrawal sx Plan: continue detox
[2018-12-25] MEDS: THIAMINE HCL 100 MG TABLET (FP) PO SCH (22:19)
[2018-12-25] MEDS: QUEtiapine FUMARATE 400 MG TABLET PO SCH (22:19)
[2018-12-25] MEDS: MELATONIN 5 MG TABLETS PO PRN (22:20)
[2018-12-26] MEDS: chlordiazePOXIDE HCL 25 MG CAPSULE PO SCH ×3 (05:22→17:41)
[2018-12-26] MEDS: PRENATAL VITAMINS W/ FOLIC ACID TABLET (FP) PO SCH (10:15)
[2018-12-26] MEDS: NICOTINE 14 MG/24 HOURS TOPICAL PATCH TD SCH (10:16)
--- NOTE | 2018-12-26 17:15 | PN ---
S CIWA - CIWA Score Nausea/Vomitin-No Nausea/No Vomiting Muscle Tremors: 2 Anxiety: 3 Agitation: 0-Normal Activity Paroxysmal Sweats: 3 Orientation: 0-Oriented Tacttile Disturbances: 2-Mild Itch/Numbness/Burn Auditory Disturbances: 1-Very Mild Visual Disturbances: 0-None Headache: 0-None Present CIWA-Ar Total Score: 11 [facility] Progress Note (SOAP) Subjective: Tremors, Anxious, Fatigue, Sweating. Objective: PATIENT A & O X 3. IN NO ACUTE DISTRESS. 12/26/18 17:14 Vital Signs Temperature 97.4 F L 12/26/18 13:57 Pulse Rate 117 H 12/26/18 13:57 Respiratory Rate 20 12/26/18 13:57 Blood Pressure 133/85 12/26/18 13:57 O2 Sat by Pulse Oximetry (%) Laboratory Tests 12/25/18 12/25/18 12/25/18 07:00 07:00 07:00 WBC 4.3 RBC 4.28 Hgb 13.8 Hct 41.5 MCV 96.8 H MCH 32.3 MCHC 33.4 RDW 12.7 Plt Count 188 MPV 9.3 D Sodium 139 Potassium 4.0 Chloride 106 Carbon Dioxide 26 Anion Gap 6 L BUN 13 Creatinine 1.1 Creat Clearance w eGFR > 60 Random Glucose 106 Calcium 8.6 Total Bilirubin 0.5 AST 25 ALT 23 Alkaline Phosphatase 89 Total Protein 6.6 Albumin 3.3 L RPR Titer Nonreactive LABS NOTED. Assessment: 12/26/18 17:15 WITHDRAWAL SYMPTOMS. Plan: CONTINUE DETOX.
[2018-12-26] MEDS: QUEtiapine FUMARATE 400 MG TABLET PO SCH (22:34)
[2018-12-26] MEDS: THIAMINE HCL 100 MG TABLET (FP) PO SCH (22:34)
[2018-12-26] MEDS: MELATONIN 5 MG TABLETS PO PRN (22:34)
[2018-12-26] MEDS: chlordiazePOXIDE HCL 10 MG CAPSULE PO SCH (22:34)
[2018-12-26] MEDS ORDERED: chlordiazePOXIDE HCL 10 MG CAPSULE PO PRN (23:00)
[2018-12-27] MEDS: chlordiazePOXIDE HCL 10 MG CAPSULE PO SCH ×4 (05:26→22:32)
[2018-12-27] MEDS: PRENATAL VITAMINS W/ FOLIC ACID TABLET (FP) PO SCH (10:19)
[2018-12-27] MEDS: NICOTINE 14 MG/24 HOURS TOPICAL PATCH TD SCH (10:20)
--- NOTE | 2018-12-27 16:35 | PN ---
[facility] Progress Note (SOAP) Subjective: Patient denies current Withdrawal / Detox symptoms and reports that he feels well overall. Objective: PATIENT A & O X 3, OBSERVED AMBULATING ON UNIT. IN NO ACUTE DISTRESS. 12/27/18 16:34 Vital Signs Temperature 96.2 F L 12/27/18 13:43 Pulse Rate 67 12/27/18 13:43 Respiratory Rate 18 12/27/18 13:43 Blood Pressure 136/78 12/27/18 13:43 O2 Sat by Pulse Oximetry (%) Laboratory Tests 12/25/18 12/25/18 12/25/18 07:00 07:00 07:00 WBC 4.3 RBC 4.28 Hgb 13.8 Hct 41.5 MCV 96.8 H MCH 32.3 MCHC 33.4 RDW 12.7 Plt Count 188 MPV 9.3 D Sodium 139 Potassium 4.0 Chloride 106 Carbon Dioxide 26 Anion Gap 6 L BUN 13 Creatinine 1.1 Creat Clearance w eGFR > 60 Random Glucose 106 Calcium 8.6 Total Bilirubin 0.5 AST 25 ALT 23 Alkaline Phosphatase 89 Total Protein 6.6 Albumin 3.3 L RPR Titer Nonreactive LABS NOTED. Assessment: 12/27/18 16:35 WITHDRAWAL SYMPTOMS. Plan: CONTINUE DETOX. PATIENT SCHEDULED FOR D/C TOMORROW.
[2018-12-27] MEDS: THIAMINE HCL 100 MG TABLET (FP) PO SCH (22:32)
[2018-12-27] MEDS: MELATONIN 5 MG TABLETS PO PRN (22:32)
[2018-12-27] MEDS: QUEtiapine FUMARATE 400 MG TABLET PO SCH (22:32)
[2018-12-28 09:13] VITALS: BP 147/92; PULSE 94; TEMP 97.6
[2018-12-28] MEDS: PRENATAL VITAMINS W/ FOLIC ACID TABLET (FP) PO SCH (10:27)
[2018-12-28] MEDS: chlordiazePOXIDE HCL 10 MG CAPSULE PO SCH (10:27)
[2018-12-28] MEDS: NICOTINE 14 MG/24 HOURS TOPICAL PATCH TD SCH (10:27)
--- NOTE | 2018-12-28 12:45 | DS ---
[facility] Detox Discharge Summary Admission Date: 12/24/18 Discharge Date: 12/28/18 - History Present History: Alcohol Dependence, Cannabis Dependence, Cocaine Dependence Additional Comments: PATIENT GOING TO [facility] ([place], [place]) FOR AFTERCARE. PATIENT WAS DISCHARGED FROM DETOX UNIT TO BE TAKEN OVER TO REHAB UNIT IN STABLE MEDICAL CONDITION. Pertinent Past History: HTN, Hyperlipidemia, History of Depression, History of Bipolar Disorder, Nicotine Dependence, History of Peripheral Edema. - Physical Exam Results Vital Signs: Vital Signs Temperature 97.6 F 12/28/18 09:13 Pulse Rate 94 H 12/28/18 09:13 Respiratory Rate 18 12/28/18 09:13 Blood Pressure 147/92 12/28/18 09:13 O2 Sat by Pulse Oximetry (%) Pertinent Admission Physical Exam Findings: WITHDRAWAL SYMPTOMS. Laboratory Tests 12/25/18 12/25/18 12/25/18 07:00 07:00 07:00 WBC 4.3 RBC 4.28 Hgb 13.8 Hct 41.5 MCV 96.8 H MCH 32.3 MCHC 33.4 RDW 12.7 Plt Count 188 MPV 9.3 D Sodium 139 Potassium 4.0 Chloride 106 Carbon Dioxide 26 Anion Gap 6 L BUN 13 Creatinine 1.1 Creat Clearance w eGFR > 60 Random Glucose 106 Calcium 8.6 Total Bilirubin 0.5 AST 25 ALT 23 Alkaline Phosphatase 89 Total Protein 6.6 Albumin 3.3 L RPR Titer Nonreactive LABS NOTED. - Treatment Hospital Course: Detox Protocol Followed, Detoxed Safely, Responded well, Discharged Condition Good, Rehab Referral Accepted Patient has Accepted a Rehab Referral to: [facility] ([place], [place]). - Medication Discharge Medications: Ambulatory Orders Cholecalciferol (Vitamin D3) [Vitamin D3] 50,000 unit PO WEEKLY 03/05/18 Simvastatin [Zocor -] 20 mg PO HS 03/05/18 Amlodipine Besylate [Norvasc -] 10 mg PO HS #30 tablet 03/18/18 Hydrochlorothiazide [Hctz -] 25 mg PO DAILY #30 tablet 03/18/18 Metoprolol Tartrate 25 mg PO HS #30 tablet 03/18/18 Quetiapine Fumarate [Seroquel -] 400 mg PO BID #30 tablet 03/18/18 - Diagnosis (1) Alcohol dependence with withdrawal Status: Acute Qualifiers: Complication of substance-induced condition: uncomplicated Qualified Code(s ): F10.230 - Alcohol dependence with withdrawal, uncomplicated (2) Cocaine dependence Status: Acute Qualifiers: Substance use status: uncomplicated Qualified Code(s): F14.20 - Cocaine dependence, uncomplicated (3) HTN (hypertension) Status: Chronic Qualifiers: Hypertension type: essential hypertension Qualified Code(s): I10 - Essential (primary) hypertension (4) Hyperlipidemia Status: Chronic Qualifiers: Hyperlipidemia type: unspecified Qualified Code(s): E78.5 - Hyperlipidemia , unspecified (5) Nicotine dependence Status: Chronic Qualifiers: Nicotine product type: cigarettes Substance use status: uncomplicated Qualified Code(s): F17.210 - Nicotine dependence, cigarettes, uncomplicated (6) Peripheral edema Status: Chronic (7) Substance induced mood disorder Status: Acute (8) Substance-induced sleep disorder Status: Acute (9) Bipolar disorder Status: Chronic Qualifiers: Active/Remission status: remission status unspecified (10) Marijuana dependence Status: Chronic - AMA Did Patient Leave Against Medical Advice: No
== END 2018-12-28 12:25 | disposition other institution (70) | DRG 774 ==
LOC: YASAS 15:52 → Y3N 21:19
PROVIDERS: ADMIT Surgery; ATTEND Surgery
PROC: HZ2ZZZZ Detoxification Services for Substance Abuse Treatment (ICD-10-PCS; principal; 2018-12-24)
DX: F10.230 Alcohol dependence with withdrawal, uncomplicated (principal); F14.20 Cocaine dependence, uncomplicated; F12.20 Cannabis dependence, uncomplicated; F17.210 Nicotine dependence, cigarettes, uncomplicated; F19.24 Other psychoactive substance dependence with psychoactive substance-induced mood disorder; F19.282 Other psychoactive substance dependence with psychoactive substance-induced sleep disorder; F31.9 Bipolar disorder, unspecified; G62.9 Polyneuropathy, unspecified; I10 Essential (primary) hypertension; E78.5 Hyperlipidemia, unspecified
CPT/HCPCS: 36415; 80053; 85027; 86593; 93005; 93010

== ENCOUNTER 2018-12-28 12:43 | Inpatient (IN) | payer OTHER ==
[2018-12-28] MEDS ORDERED: MAGNESIUM HYDROX 2400MG/30ML ORAL SUSPENSION 30 ML CUP PO PRN (12:53)
[2018-12-28] MEDS ORDERED: LOPERAMIDE HCL 2 MG CAPSULE PO PRN (12:53)
[2018-12-28] MEDS ORDERED: MENTHOL/PHENOL 1 EACH UD MM PRN (12:53)
[2018-12-28] MEDS ORDERED: MAGNESIUM CITRATE 300 ML BOTTLE PO PRN (12:53)
[2018-12-28] MEDS ORDERED: ACETAMINOPHEN 325 MG TABLET (FP) PO PRN (12:53)
[2018-12-28] MEDS ORDERED: IBUPROFEN 400 MG TABLET (FP) PO PRN (12:53)
[2018-12-28] MEDS ORDERED: P-EPHED 60MG/TRIPROLIDI 2.5MG TABLET PO PRN (12:53)
[2018-12-28] MEDS ORDERED: guaiFENesin 200 MG/10 ML 10 ML UNIT-DOSE CUPS PO PRN (12:53)
--- NOTE | 2018-12-28 12:53 | HP ---
[facility] Rehab Assess/Revision - Admission History Admitted to Rehab from: [facility] Date of Admission to Rehab: 12/28/2018 - Vital signs Vital Signs: Vital Signs Period Temp Pulse Resp BP Sys/Beltran Pulse Ox Last 24 Hr 97.8 F 118 18 122/83 - Findings Detox History & Physical reviewed: Yes Concur with findings: Yes Comments/Additional Findings: PATIENT'S MEDICAL / MEDICATION HISTORY REVIEWED PRIOR TO DISCHARGE FROM DETOX UNIT. PATIENT WAS DISCHARGED FROM DETOX UNIT TO BE TAKEN OVER TO REHAB UNIT IN STABLE MEDICAL CONDITION. Inpatient Rehab Admission - Rehab Decision to Admit Inpatient rehab admission?: Yes - Initial Determination Are CD services needed?: Yes Free of communicable disease: Yes Not in need of hospitalization: Yes - Rehab Admission Criteria Previous failed treatment: Yes Poor recovery environment: Yes Comorbidities: Yes Lacks judgement: No Patient is meeting Inpatient Rehab admission criteria:: Yes
--- NOTE | 2018-12-28 14:12 | CONSULT ---
[facility] Psychiatric Consult - Data Date of interview: 12/28/18 Admission source: Transfer from [address] [place] [address]. Identifying data: Readmission to [facility] for this 53 y/o AA male, now at [address] after completion of detoxification (alcohol, cocaine) on [address] [place] [address]. Patient is in a common-law relaionship (25 years of committment), a father of one, undomiciled (property is in foreclosure), unemployed and supported on Public Assistance. Substance Abuse History: Confirmed by the patient in this session. Details in current [facility] report as follows : Smoking history: Current every day smoker. Have you smoked in the past 12 months: Yes. Aproximately how many cigarettes per day: 10. Cigars Per Day: 0. Hx Chewing Tobacco Use: No. Initiated information on smoking cessation: Yes. 'Breaking Loose' booklet given: . - Substances Abused. Alcohol. Route: Oral. Frequency: Daily. Amount used: LIQUOR (VODKA)- 3 PINTS, BEER- 1 SIX PACK(24oz). Age of first use: 20. Date of Last Use: 12/24/18. Cocaine. Route: Inhalation. Frequency: 1-2 times per week. Amount used: 3. Age of first use: 20. Date of Last Use: 12/23. Marijuana/Hashish. Route: Smoking. Frequency: No use in 30 days. Amount used: 1 bag. Age of first use: 20. Date of Last Use: 12/17/18 Medical History: Remarkable for hypertension, hyperlipidemia and a history of orthosurgery for fracture of left ankle (hardware in place : pins & rosio). Psychiatric History: No history of psychiatric hospitalizations. Patient has been diagnosed with Bipolar Disorder (2006). Mr Chavez still gets his outpatient psychiatric services at the [facility] (maintained on seroquel 400 mg po bid). No history of suicide attempts. Physical/Sexual Abuse/Trauma History: No history of abuse. Additional Comment: Urine Drug Screen Results: THC-Marijuana, JC-Cocaine, MET- Methamphetamine. Noted. Mental Status Exam - Mental Status Exam Alert and Oriented to: Time, Place Cognitive Function: Good Patient Appearance: Well Groomed Mood: Hopeful, Euthymic Affect: Appropriate, Normal Range Patient Behavior: Appropriate, Cooperative Speech Pattern: Clear, Appropriate Voice Loudness: Normal Thought Process: Intact, Goal Oriented Thought Disorder: Not Present Hallucinations: Denies Suicidal Ideation: Denies Homicidal Ideation: Denies Insight/Judgement: Fair Sleep: Fair Appetite: Good Muscle strength/Tone: Normal Gait/Station: Normal (steady gait) Psychiatric Findings - Problem List ([place] 1, 2,3) (1) Alcohol dependence Current Visit: Yes Status: Chronic (2) Cocaine dependence Current Visit: Yes Status: Chronic Qualifiers: Substance use status: uncomplicated Qualified Code(s): F14.20 - Cocaine dependence, uncomplicated (3) Nicotine dependence Current Visit: Yes Status: Chronic Qualifiers: Nicotine product type: cigarettes Substance use status: uncomplicated Qualified Code(s): F17.210 - Nicotine dependence, cigarettes, uncomplicated (4) Bipolar disorder Current Visit: Yes Status: Chronic Qualifiers: Active/Remission status: remission status unspecified Qualified Code(s): F31.9 - Bipolar disorder, unspecified Comment: As per existing records and self-report. (5) Insomnia Current Visit: Yes Status: Chronic Qualifiers: Insomnia type: unspecified Qualified Code(s): G47.00 - Insomnia, unspecified - Initial Treatment Plan Initial Treatment Plan: [facility] Doctor was called by medical FASHION ADVISER Salena Gutiérrez to address continuity of care on . Patient is already known to MD. Records revisited. Dr Paredes's note of 12/25/18 : appreciated. Patient seen. Medications discussed. Made aware of side effects/benefits of seroquel (sedation , metabolic syndrome, movement disorders). Patient is observed as cognitively intact, ambulatory and steady (gait). Seroquel 400 mg po hs. Resumed. Observation.
[2018-12-28] MEDS: QUEtiapine FUMARATE 400 MG TABLET PO SCH (21:13)
[2018-12-28] MEDS: ATORVASTATIN CA 10 MG TABLET (FP) PO SCH (21:13)
[2018-12-28] MEDS: THIAMINE HCL 100 MG TABLET (FP) PO SCH (21:13)
[2018-12-28] MEDS: MELATONIN 5 MG TABLETS PO PRN (21:14)
[2018-12-29] MEDS: NICOTINE 14 MG/24 HOURS TOPICAL PATCH TD SCH (10:16)
[2018-12-29] MEDS: PRENATAL VITAMINS W/ FOLIC ACID TABLET (FP) PO SCH (10:16)
[2018-12-29] MEDS: THIAMINE HCL 100 MG TABLET (FP) PO SCH (21:09)
[2018-12-29] MEDS: ATORVASTATIN CA 10 MG TABLET (FP) PO SCH (21:09)
[2018-12-29] MEDS: QUEtiapine FUMARATE 400 MG TABLET PO SCH (21:09)
[2018-12-29] MEDS: MELATONIN 5 MG TABLETS PO PRN (21:10)
[2018-12-30] MEDS: NICOTINE 14 MG/24 HOURS TOPICAL PATCH TD SCH (09:51)
[2018-12-30] MEDS: PRENATAL VITAMINS W/ FOLIC ACID TABLET (FP) PO SCH (09:51)
[2018-12-30] MEDS: QUEtiapine FUMARATE 400 MG TABLET PO SCH ×2 (12:51→21:01)
--- NOTE | 2018-12-30 13:13 | PN ---
Psychiatric Progress Note Vital Signs: Vital Signs Period Temp Pulse Resp BP Sys/Beltran Pulse Ox Last 24 Hr 97.7 F 91 18-18 120/72 Date of Session: 12/30/18 Chief Complaint:: Follow up HPI: Patient with history of bipolar Didorder and Polysubsatnce(alcohol, cocaine ,cannabis) abuse admitted to this unit on 12/28/18 for inpatient rehabilitation Current Medications: Active Medications Generic Name Dose Route Start Last Admin Trade Name Freq PRN Reason Stop Dose Admin Acetaminophen 650 mg 12/28/18 12:53 Tylenol - PO Q4H PRN FEVER Al Hydroxide/Mg Hydroxide 30 ml 12/28/18 12:53 Mylanta Oral Suspension - PO Q6H PRN DYSPEPSIA Atorvastatin Calcium 10 mg 12/28/18 22:00 12/29/18 21:09 Lipitor - PO 10 mg HS TIFFANIE Administration Eucalyptus/Menthol/Phenol/Sorbitol 1 each 12/28/18 12:53 Cepastat Lozenge - MM Q4H PRN SORE THROAT Guaifenesin 10 ml 12/28/18 12:53 Robitussin - PO Q6H PRN COUGH Ibuprofen 400 mg 12/28/18 12:53 Motrin - PO Q6H PRN Pain Level 4-6 Loperamide HCl 4 mg 12/28/18 12:53 Imodium - PO Q6H PRN DIARRHEA Magnesium Citrate 300 ml 12/28/18 12:53 Citroma - PO Q48H PRN CONSTIPATION Magnesium Hydroxide 30 ml 12/28/18 12:53 Milk Of Magnesia - PO DAILY PRN CONSTIPATION Melatonin 5 mg 12/28/18 22:00 12/29/18 21:10 Melatonin PO 5 mg HS PRN Administration INSOMNIA Nicotine 14 mg 12/29/18 10:00 12/30/18 09:51 Nicoderm Patch - TD 14 mg DAILY TIFFANIE Administration Multivit/Folic Acid/Iron 1 tab 12/29/18 10:00 12/30/18 09:51 Vitamins (Sjr) - PO 1 tab DAILY TIFFANIE Administration Pseudoephedrine/Triprolidine 1 combo 12/28/18 12:53 Actifed - PO TID PRN NASAL CONGESTION Quetiapine Fumarate 400 mg 12/30/18 12:15 12/30/18 12:51 Seroquel - PO 400 mg BID TIFFANIE Administration Thiamine HCl 100 mg 12/28/18 22:00 12/29/18 21:09 Vitamin B1 - PO 100 mg HS TIFFANIE Administration Current Side Effect: No Lab tests ordered: Yes Lab tests reviewed: Yes Provider note:: Patient requests that Seroquel dosage be increased to 40 mg po BID. Prior to his admission to detox, patient was on Seroquel 400 mg po BID. Dosage of medication was reduced to reduced to prevent excessive sedation with concomittent administration of Librium. Patient is alert, oriented x3. with no evidence of cognitive deficit. Seroquel dosage is increased to 40 mg po BID Total face to face time:: 15 Mental Status Exam - Mental Status Exam Alert and Oriented to: Time, Place, Person Cognitive Function: Fair Patient Appearance: Well Groomed Mood: Hopeful, Euthymic Patient Behavior: Cooperative Speech Pattern: Clear Voice Loudness: Normal Thought Process: Intact, Goal Oriented Thought Disorder: Not Present Hallucinations: Denies Suicidal Ideation: Denies Homicidal Ideation: Denies Insight/Judgement: Fair Sleep: Poorly Appetite: Good Muscle strength/Tone: Normal Gait/Station: Normal Psychiatric Treatment Plan - Problem List (1) Bipolar disorder Current Visit: Yes Qualifiers: Active/Remission status: remission status unspecified Qualified Code(s): F31.9 - Bipolar disorder, unspecified Comment: As per existing records and self-report. (2) Substance-induced sleep disorder Current Visit: No (3) Alcohol dependence Current Visit: Yes (4) Cocaine dependence Current Visit: Yes Qualifiers: Substance use status: uncomplicated Qualified Code(s): F14.20 - Cocaine dependence, uncomplicated (5) Cannabis dependence Current Visit: No (6) Nicotine dependence Current Visit: Yes Qualifiers: Nicotine product type: cigarettes Substance use status: uncomplicated Qualified Code(s): F17.210 - Nicotine dependence, cigarettes, uncomplicated (7) HTN (hypertension) Current Visit: No Qualifiers: Hypertension type: essential hypertension Qualified Code(s): I10 - Essential (primary) hypertension (8) Hyperlipidemia Current Visit: No Qualifiers: Hyperlipidemia type: unspecified Qualified Code(s): E78.5 - Hyperlipidemia , unspecified Initial treatment plan: 1) Discontinue Seroquel as currently ordered. 2) Start Seroquel 400 mg po BID. 3) Continue inpatient rehabilitation
[2018-12-30] MEDS: ATORVASTATIN CA 10 MG TABLET (FP) PO SCH (21:01)
[2018-12-30] MEDS: THIAMINE HCL 100 MG TABLET (FP) PO SCH (21:01)
[2018-12-30] MEDS: MELATONIN 5 MG TABLETS PO PRN (21:02)
[2018-12-31] MEDS: NICOTINE 14 MG/24 HOURS TOPICAL PATCH TD SCH (10:10)
[2018-12-31] MEDS: PRENATAL VITAMINS W/ FOLIC ACID TABLET (FP) PO SCH (10:10)
[2018-12-31] MEDS: QUEtiapine FUMARATE 400 MG TABLET PO SCH ×2 (10:10→21:12)
[2018-12-31] MEDS: ATORVASTATIN CA 10 MG TABLET (FP) PO SCH (21:12)
[2018-12-31] MEDS: THIAMINE HCL 100 MG TABLET (FP) PO SCH (21:12)
[2018-12-31] MEDS: MELATONIN 5 MG TABLETS PO PRN (21:13)
[2019-01-01] MEDS: QUEtiapine FUMARATE 400 MG TABLET PO SCH ×2 (09:48→21:10)
[2019-01-01] MEDS: PRENATAL VITAMINS W/ FOLIC ACID TABLET (FP) PO SCH (09:48)
[2019-01-01] MEDS: NICOTINE 14 MG/24 HOURS TOPICAL PATCH TD SCH (09:48)
[2019-01-01] MEDS: MAG HYDROX/AL HYDROX/SIMETH 30 ML UNIT-DOSE CUP PO PRN (13:02)
[2019-01-01] MEDS: THIAMINE HCL 100 MG TABLET (FP) PO SCH (21:09)
[2019-01-01] MEDS: ATORVASTATIN CA 10 MG TABLET (FP) PO SCH (21:09)
[2019-01-01] MEDS: MELATONIN 5 MG TABLETS PO PRN (21:10)
[2019-01-02] MEDS: NICOTINE 14 MG/24 HOURS TOPICAL PATCH TD SCH (09:48)
[2019-01-02] MEDS: PRENATAL VITAMINS W/ FOLIC ACID TABLET (FP) PO SCH (09:48)
[2019-01-02] MEDS: QUEtiapine FUMARATE 400 MG TABLET PO SCH ×2 (09:48→21:08)
[2019-01-02] MEDS: THIAMINE HCL 100 MG TABLET (FP) PO SCH (21:07)
[2019-01-02] MEDS: ATORVASTATIN CA 10 MG TABLET (FP) PO SCH (21:07)
[2019-01-02] MEDS: MELATONIN 5 MG TABLETS PO PRN (21:08)
[2019-01-03] MEDS: NICOTINE 14 MG/24 HOURS TOPICAL PATCH TD SCH (09:42)
[2019-01-03] MEDS: QUEtiapine FUMARATE 400 MG TABLET PO SCH ×2 (09:42→21:11)
[2019-01-03] MEDS: PRENATAL VITAMINS W/ FOLIC ACID TABLET (FP) PO SCH (09:42)
[2019-01-03] MEDS: MELATONIN 5 MG TABLETS PO PRN (21:11)
[2019-01-03] MEDS: THIAMINE HCL 100 MG TABLET (FP) PO SCH (21:11)
[2019-01-03] MEDS: ATORVASTATIN CA 10 MG TABLET (FP) PO SCH (21:11)
[2019-01-04] MEDS: QUEtiapine FUMARATE 400 MG TABLET PO SCH ×2 (09:22→21:06)
[2019-01-04] MEDS: PRENATAL VITAMINS W/ FOLIC ACID TABLET (FP) PO SCH (09:22)
[2019-01-04] MEDS: MAG HYDROX/AL HYDROX/SIMETH 30 ML UNIT-DOSE CUP PO PRN (09:22)
[2019-01-04] MEDS: NICOTINE 14 MG/24 HOURS TOPICAL PATCH TD SCH (09:22)
[2019-01-04] MEDS: MELATONIN 5 MG TABLETS PO PRN (21:07)
[2019-01-04] MEDS: THIAMINE HCL 100 MG TABLET (FP) PO SCH (21:07)
[2019-01-04] MEDS: ATORVASTATIN CA 10 MG TABLET (FP) PO SCH (21:07)
[2019-01-05] MEDS: MAG HYDROX/AL HYDROX/SIMETH 30 ML UNIT-DOSE CUP PO PRN (09:42)
[2019-01-05] MEDS: QUEtiapine FUMARATE 400 MG TABLET PO SCH ×2 (09:42→21:08)
[2019-01-05] MEDS: NICOTINE 14 MG/24 HOURS TOPICAL PATCH TD SCH (09:42)
[2019-01-05] MEDS: PRENATAL VITAMINS W/ FOLIC ACID TABLET (FP) PO SCH (09:42)
[2019-01-05] MEDS: ATORVASTATIN CA 10 MG TABLET (FP) PO SCH (21:08)
[2019-01-05] MEDS: THIAMINE HCL 100 MG TABLET (FP) PO SCH (21:08)
[2019-01-05] MEDS: MELATONIN 5 MG TABLETS PO PRN (21:09)
[2019-01-06] MEDS: PRENATAL VITAMINS W/ FOLIC ACID TABLET (FP) PO SCH (09:57)
[2019-01-06] MEDS: QUEtiapine FUMARATE 400 MG TABLET PO SCH ×2 (09:57→21:12)
[2019-01-06] MEDS: NICOTINE 14 MG/24 HOURS TOPICAL PATCH TD SCH (09:58)
[2019-01-06] MEDS: NICOTINE POLACRILEX 2 MG GUM BUC PRN (17:38)
[2019-01-06] MEDS: MELATONIN 5 MG TABLETS PO PRN (21:12)
[2019-01-06] MEDS: THIAMINE HCL 100 MG TABLET (FP) PO SCH (21:12)
[2019-01-06] MEDS: ATORVASTATIN CA 10 MG TABLET (FP) PO SCH (21:13)
[2019-01-07] MEDS: NICOTINE POLACRILEX 2 MG GUM BUC PRN (09:44)
[2019-01-07] MEDS: QUEtiapine FUMARATE 400 MG TABLET PO SCH ×2 (09:44→21:17)
[2019-01-07] MEDS: PRENATAL VITAMINS W/ FOLIC ACID TABLET (FP) PO SCH (09:44)
[2019-01-07] MEDS: NICOTINE 14 MG/24 HOURS TOPICAL PATCH TD SCH (09:44)
--- NOTE | 2019-01-07 17:19 | PN ---
S Progress Note Note: Patient is scheduled for discharge tomorrow. Scripts for 30 days supply of Seroquel 400 mg po BID will be electronically transmitted to [facility] at [address] [place] [id number]
[2019-01-07] MEDS: MELATONIN 5 MG TABLETS PO PRN (21:17)
[2019-01-07] MEDS: THIAMINE HCL 100 MG TABLET (FP) PO SCH (21:17)
[2019-01-07] MEDS: ATORVASTATIN CA 10 MG TABLET (FP) PO SCH (21:17)
[2019-01-08 06:47] VITALS: BP 118/65; PULSE 81; TEMP 97
[2019-01-08] MEDS: PRENATAL VITAMINS W/ FOLIC ACID TABLET (FP) PO SCH (09:00)
[2019-01-08] MEDS: NICOTINE 14 MG/24 HOURS TOPICAL PATCH TD SCH (09:00)
[2019-01-08] MEDS: QUEtiapine FUMARATE 400 MG TABLET PO SCH (09:00)
--- NOTE | 2019-01-08 10:37 | PN ---
[facility] Progress Note Note: PT COMPLETED REHAB AND DISCHARGED TODAY. PT HAS BEEN REFERRED FOR CD AFTERCARE TO [facility], [place], [place]. PT REPORTS PRIMARY CARE WITH DR. KENYON AT [facility] AND STATES HE WILL FOLLOW UP WITH MEDICAL MANAGEMENT AFTER DISCHARGE. PT DECLINED WILL SEE HIS PMD TO RE-EVALUATE HIM FOR HTN MEDS AND HIGH CHOLESTEROL STATUS/MEDS STATING HE DOES NOT NEED THEN ANY LONGER. PT WAS NOT ON ANY BP MEDS WHILE IN REHAB. ALERT O X 3. DENIES S/H/I. Home Medications Medication Instructions Recorded Cholecalciferol (Vitamin D3) 50,000 unit PO WEEKLY 03/05/18 [Vitamin D3] Simvastatin [Zocor -] 20 mg PO HS 03/05/18 Amlodipine Besylate [Norvasc -] 10 mg PO HS #30 tablet 03/18/18 Hydrochlorothiazide [Hctz -] 25 mg PO DAILY #30 tablet 03/18/18 Metoprolol Tartrate 25 mg PO HS #30 tablet 03/18/18 Quetiapine Fumarate [Seroquel -] 400 mg PO BID #60 tablet 01/07/19 Vital Signs (72 hours) 01/06/19 01/06/19 01/06/19 00:30 03:30 07:19 Temperature 98.1 F Pulse Rate 94 H Respiratory 18 18 20 Rate Blood Pressure 140/84 01/07/19 01/07/19 01/07/19 00:30 03:30 06:44 Temperature 98.0 F Pulse Rate 94 H Respiratory 18 18 17 Rate Blood Pressure 122/82 01/08/19 01/08/19 01/08/19 00:30 03:30 06:46 Temperature 97.0 F L Pulse Rate 81 Respiratory 18 18 18 Rate Blood Pressure 118/65 Current Active Problems Alcohol dependence (Chronic) Bipolar disorder (Chronic) Cocaine dependence (Chronic) Insomnia (Chronic) Nicotine dependence (Chronic) NAD MEDICALLY STABLE PLAN:D/C PT TODAY FOLLOW UP WITH CD AFTERCARE WITH [facility] ON 01/10/19 AT 9:00 A.M FOLLOW UP WITH PRIMARY CARE WITH [facility] WITHIN 1 WEEK AFTER DISCHARGE.
== END 2019-01-08 09:10 | disposition home or self-care (01) | DRG 772 ==
LOC: YASAS 12:43 → Y5N 12:44
PROVIDERS: ADMIT Neuromusculoskeletal Medicine & OMM; ATTEND Neuromusculoskeletal Medicine & OMM
PROC: HZ42ZZZ Group Counseling for Substance Abuse Treatment, Cognitive-Behavioral (ICD-10-PCS; principal; 2018-12-28)
DX: F10.20 Alcohol dependence, uncomplicated (principal); F14.20 Cocaine dependence, uncomplicated; F12.20 Cannabis dependence, uncomplicated; F17.210 Nicotine dependence, cigarettes, uncomplicated; F31.9 Bipolar disorder, unspecified; F19.282 Other psychoactive substance dependence with psychoactive substance-induced sleep disorder; I10 Essential (primary) hypertension; E78.5 Hyperlipidemia, unspecified; G47.00 Insomnia, unspecified

== ENCOUNTER 2020-05-31 15:21 | Inpatient (IN) | payer OTHER ==
--- NOTE | 2020-05-31 18:23 | HP ---
CIWA Score Nausea/Vomitin-No Nausea/No Vomiting Muscle Tremors: None Anxiety: 2 Agitation: 0-Normal Activity Paroxysmal Sweats: No Perspiration Orientation: 0-Oriented Tacttile Disturbances: 0-None Auditory Disturbances: 0-None Visual Disturbances: 0-None Headache: 0-None Present CIWA-Ar Total Score: 2 - Admission Criteria OASAS Guidelines: Admission for Medically Managed Detox: Requires at least one of the followin. CIWA greater than 12 2. Seizures within the past 24 hours 3. Delirium tremens within the past 24 hours 4. Hallucinations within the past 24 hours 5. Acute intervention needed for co occurring medical disorder 6. Acute intervention needed for co occurring psychiatric disorder 7. Severe withdrawal that cannot be handled at a lower level of care (continued vomiting, continued diarrhea, abnormal vital signs) requiring intravenous medication and/or fluids 8. Admitting History and Physical - Past Medical History Cardiovascular: Yes: HTN, Hyperlipdemia Psych: Yes: Bipolar - Smoking History Smoking history: Current every day smoker Have you smoked in the past 12 months: Yes Aproximately how many cigarettes per day: 10 - Alcohol/Substance Use Hx Alcohol Use: Yes History of Substance Use: reports: Marijuana - Social History Occupation: unemployed History of Recent Travel: No Admission ROS [facility] - [facility] Allergies/Adverse Reactions: Allergies Allergy/AdvReac Type Severity Reaction Status Date / Time No Known Allergies Allergy Verified 03/31/20 18:58 History of Present Illness: 54 y.o. male requesting detox from alcohol use ,reports 4 x 24 oz cans /day daily since age 32 , denies seizures , blackouts , latest use today , denies tremors if not drinking alcohol . Most recent detox at this facility March 2020 . cocaine : " not that much " tobacco 1 ppd Exam Limitations: Intoxication - Review of Systems Constitutional: Loss of Appetite EENT: reports: No Symptoms Reported, Other (reading glasses) Respiratory: reports: No Symptoms reported Cardiac: reports: No Symptoms Reported GI: reports: Poor Appetite : reports: No Symptoms Reported Musculoskeletal: reports: No Symptoms Reported Integumentary: reports: No Symptoms Reported Neuro: reports: No Symptoms reported Endocrine: reports: No Symptoms Reported Psychiatric: reports: Orientated x3, Anxious Patient History - Patient Medical History Hx Anemia: No Hx Asthma: No Hx Chronic Obstructive Pulmonary Disease (COPD): No Hx Cancer: No Hx Cardiac Disorders: No Hx Congestive Heart Failure: No Hx Hypertension: Yes (on med) Hx Hypercholesterolemia: Yes (Simvastatin) Hx Pacemaker: No HX Cerebrovascular Accident: No Hx Seizures: No Hx Dementia: No Hx Diabetes: No Hx Gastrointestinal Disorders: No Hx Liver Disease: No Hx Genitourinary Disorders: No Hx Sexually Transmitted Disorders: No Hx Renal Disease (ESRD): No Hx Thyroid Disease: No Hx Human Immunodeficiency Virus (HIV): No Hx Hepatitis C: No Hx Depression: Yes Hx Suicide Attempt: No Hx Bipolar Disorder: Yes (Seroquel use 400 mg BID as per Hx) Hx Schizophrenia: No - Patient Surgical History Past Surgical History: Yes Hx Neurologic Surgery: No Hx Cataract Extraction: No Hx Cardiac Surgery: No Hx Lung Surgery: No Hx Breast Surgery: No Hx Breast Biopsy: No Hx Abdominal Surgery: No Hx Appendectomy: No Hx Cholecystectomy: No Hx Genitourinary Surgery: No Hx Section: No Hx Orthopedic Surgery: Yes (left ankle with hardware placement (pins & rosio)1997) Anesthesia Reaction: No - PPD History Date: 04/02/20 Results: 0 mm - Smoking Cessation Smoking history: Current every day smoker Have you smoked in the past 12 months: Yes Aproximately how many cigarettes per day: 10 Cigars Per Day: 0 Hx Chewing Tobacco Use: No Initiated information on smoking cessation: Yes 'Breaking Loose' booklet given: 05/31/20 Admission Physical Exam [facility] - Physical General Appearance: Yes: Disheveled, Mild Distress, Intoxicated HEENTM: Yes: EOMI, Hearing grossly Normal, Normocephalic, Normal Voice Respiratory: Yes: Chest Non-Tender, Lungs Clear, Normal Breath Sounds, No Respiratory Distress, No Accessory Muscle Use Neck: Yes: No masses,lesions,Nodules, Trachea in good position Cardiology: Yes: Regular Rhythm, Regular Rate, S1, S2 Musculoskeletal: Yes: Gait Steady Extremities: Yes: Normal Range of Motion, Non-Tender Neurological: Yes: Alert, Motor Strength 5/5, Depressed Affect Integumentary: Yes: Warm, Other (superficial excoriation left anterior tibia states " from working ") - Addiitonal Findings: per most recent admission ( March 2020 ) pt was taking Quetiapine 400 mg bid . Pt insists he is unable to sleep w/o it . One - time dose added . Psychaitry consult for a.m. pt aware and agreeable w/ POC. - Diagnostic (1) Alcohol intoxication Current Visit: Yes Status: Chronic Qualifiers: Complication of substance-induced condition: uncomplicated Qualified Code(s): F10.920 - Alcohol use, unspecified with intoxication, uncomplicated Breathalyzer - Breathalyzer Breathalyzer: 0.050 Urine Drug Screen - Test Device Lot number: [id number] Expiration date: 06/13/21 - Control Is test valid?: Yes - Results Drug screen NEGATIVE: No Urine drug screen results: THC-Marijuana, JC-Cocaine Inpatient Rehab Admission - Rehab Decision to Admit Inpatient rehab admission?: No
[2020-05-31] MEDS ORDERED: IBUPROFEN 400 MG TABLET (FP) PO PRN (18:46)
[2020-05-31] MEDS ORDERED: MELATONIN 5 MG TABLETS PO PRN (18:46)
[2020-05-31] MEDS ORDERED: MAG HYDROX/AL HYDROX/SIMETH 30 ML UNIT-DOSE CUP PO PRN (18:46)
[2020-05-31] MEDS ORDERED: METHOCARBAMOL 500 MG TABLET PO PRN (18:46)
[2020-05-31] MEDS ORDERED: BISMUTH SUBSALICYLATE 524 MG/30 ML UD PO PRN (18:46)
[2020-05-31] MEDS ORDERED: MENTHOL/PHENOL 1 EACH UD MM PRN (18:46)
[2020-05-31] MEDS ORDERED: MAGNESIUM CITRATE 300 ML BOTTLE PO PRN (18:46)
[2020-05-31] MEDS ORDERED: ACETAMINOPHEN 325 MG TABLET (FP) PO PRN ×2 (18:46)
[2020-05-31] MEDS ORDERED: MAGNESIUM HYDROX 2400MG/30ML ORAL SUSPENSION 30 ML CUP PO PRN (18:46)
[2020-05-31] MEDS ORDERED: diazePAM 5 MG TABLET PO PRN (19:54)
[2020-05-31] MEDS ORDERED: diazePAM 5 MG TABLET PO ONE (19:54)
[2020-05-31 20:07] VITALS: BMI 26.6
[2020-05-31] MEDS: THIAMINE HCL 100 MG TABLET (FP) PO SCH (21:20)
[2020-05-31] MEDS: diazePAM 5 MG TABLET PO SCH (21:22)
[2020-05-31] MEDS ORDERED: QUEtiapine FUMARATE 400 MG TABLET PO ONE (22:00)
[2020-06-01] MEDS: diazePAM 5 MG TABLET PO SCH ×3 (05:35→22:09)
[2020-06-01] MEDS: PRENATAL VITAMINS W/ FOLIC ACID TABLET (FP) PO SCH (10:51)
--- NOTE | 2020-06-01 12:47 | CONSULT ---
[facility] Psychiatric Consult - Data Date of interview: 06/01/20 Admission source: [facility] Identifying data: Patient is a 54 year old single black male, father of one, unemployed, homeless, and is supported by [facility]. This is one of multiple admissions for patient. Patient admitted to for alcohol and cocaine dependence. Substance Abuse History: History of alcohol and cocaine dependence. Medical History: Significant for hypertension, hyperlipidemia and a history of orthosurgery for fracture of left ankle Psychiatric History: Mr. Chavez denies history of psychiatric hospitalization and suicide attempt. States that he is provided with outpatient psychiatric care at the [facility] due to his history of Bipolar disorder. States that he is treated with Seroquel 400mg BID. Patient was ordered a one time dose of seroquel 400mg last night by admitting physician but appeared slightly fatigue this morning. Patient seen by Dr. Paredes in March of 2020 and seroquel was reduced to 300mg BID due to risk of oversedation. At present patient reports stable mood. Patient denies suicidal/ homicidal ideation. Physical/Sexual Abuse/Trauma History: denies. Mental Status Exam - Mental Status Exam Alert and Oriented to: Time, Place, Person Cognitive Function: Good Patient Appearance: Well Groomed Mood: Withdrawn Affect: Mood Congruent Patient Behavior: Fatigued, Cooperative Speech Pattern: Clear Voice Loudness: Moderately Soft/Quiet Thought Process: Goal Oriented Hallucinations: Denies Suicidal Ideation: Denies Homicidal Ideation: Denies Insight/Judgement: Poor Sleep: Fair Appetite: Fair Muscle strength/Tone: Normal Gait/Station: Normal Psychiatric Findings - Problem List ([place] 1, 2,3) (1) Alcohol dependence Current Visit: Yes Status: Acute Qualifiers: Substance use status: uncomplicated Qualified Code(s): F10.20 - Alcohol dependence, uncomplicated (2) Bipolar disorder Current Visit: Yes Status: Chronic Qualifiers: Active/Remission status: remission status unspecified Qualified Code(s): F31.9 - Bipolar disorder, unspecified Comment: As per existing records and self-report. (3) Cocaine dependence Current Visit: Yes Status: Acute Qualifiers: Substance use status: uncomplicated Qualified Code(s): F14.20 - Cocaine dependence, uncomplicated - Initial Treatment Plan Initial Treatment Plan: Psychoeducation provided. Detoxification in progress. Will order Seroquel 300mg BID. Benefits and side effects discussed. Verbal consent given.
[2020-06-01 13:09] LABS: ALBUMIN 3.8 g/dl (3.4-5.0); BILIRUBIN,TOTAL 0.6 mg/dL (0.2-1); BLOOD UREA NITROGEN 13.6 mg/dL (7-18); CALCIUM 9.2 mg/dL (8.5-10.1); CREATININE 1.1 mg/dL (0.55-1.3); HEMOGLOBIN 15.4 GM/dL (11.7-16.9); MCH 32.6 pg (25.7-33.7); MCHC 33.5 g/dl (32.0-35.9); MEAN CELL VOLUME 97.4 fl (80-96); MEAN PLT VOLUME 10.3 fl (7.5-11.1); PLATELET COUNT 156 K/MM3 (134-434); POTASSIUM 4.2 mmol/L (3.5-5.1); RBC 4.73 M/mm3 (4.00-5.60); RDW 13.2 % (11.9-15.9); TOT PROT 7.1 g/dl (6.4-8.2); WHITE BLOOD COUNT 4.9 K/mm3 (4.0-10.0)
--- NOTE | 2020-06-01 13:55 | PN ---
S CIWA - CIWA Score Nausea/Vomitin-Mild Nausea/No Vomiting Muscle Tremors: 2 Anxiety: 3 Agitation: 2 Paroxysmal Sweats: 1-Minimal Palms Moist Orientation: 0-Oriented Tacttile Disturbances: 0-None Auditory Disturbances: 0-None Visual Disturbances: 2-Mild Sensitivity Headache: 1-Very Mild CIWA-Ar Total Score: 12 [facility] Progress Note (SOAP) Subjective: 54 years old male was admitted on 05/31/20 for alcohol withdrawal sx management treating with valium detox regiment feels tired tremor anxiety restlessness prefers to stay in bed today limited conversation with staff agrees to be seen by a psychiatrist for seroquel Objective: 06/01/20 13:56 Vital Signs - 24 hr 05/31/20 05/31/20 06/01/20 20:02 21:00 06:42 Temperature 97.9 F 96.9 F L 98.1 F Pulse Rate 100 H 97 H 85 Respiratory 19 18 18 Rate Blood Pressure 139/72 139/85 143/82 O2 Sat by Pulse 98 98 Oximetry (%) 06/01/20 09:05 Temperature 96.9 F L Pulse Rate 96 H Respiratory 18 Rate Blood Pressure 138/76 O2 Sat by Pulse Oximetry (%) Laboratory Tests 06/01/20 06/01/20 08:30 08:30 WBC 4.9 RBC 4.73 Hgb 15.4 Hct 46.0 MCV 97.4 H MCH 32.6 MCHC 33.5 RDW 13.2 Plt Count 156 MPV 10.3 D Sodium 139 Potassium 4.2 Chloride 106 Carbon Dioxide 28 Anion Gap 5 L BUN 13.6 Creatinine 1.1 Est GFR (CKD-EPI)AfAm 88.98 Est GFR (CKD-EPI)NonAf 76.77 Random Glucose 131 H Calcium 9.2 Total Bilirubin 0.6 AST 22 ALT 21 Alkaline Phosphatase 78 Total Protein 7.1 Albumin 3.8 06/01/20 13:56 covid pending serum glucose elevation 06/01/20 13:57 fasting glucose pending Assessment: 06/01/20 13:58 alcohol withdrawal Plan: valium regiment
[2020-06-01] MEDS: QUEtiapine FUMARATE 300 MG TABLET PO SCH (22:09)
[2020-06-01] MEDS: THIAMINE HCL 100 MG TABLET (FP) PO SCH (22:09)
[2020-06-02] MEDS: diazePAM 5 MG TABLET PO SCH ×2 (05:43→18:34)
[2020-06-02] MEDS: QUEtiapine FUMARATE 300 MG TABLET PO SCH ×2 (09:54→23:45)
[2020-06-02] MEDS: PRENATAL VITAMINS W/ FOLIC ACID TABLET (FP) PO SCH (09:55)
--- NOTE | 2020-06-02 14:51 | PN ---
S CIWA - CIWA Score Nausea/Vomitin-Mild Nausea/No Vomiting Muscle Tremors: 2 Anxiety: 2 Agitation: 0-Normal Activity Paroxysmal Sweats: 1-Minimal Palms Moist Orientation: 0-Oriented Tacttile Disturbances: 0-None Auditory Disturbances: 0-None Visual Disturbances: 1-Very Mild Sensitivity Headache: 0-None Present CIWA-Ar Total Score: 7 B[facility] Progress Note (SOAP) Subjective: 54 years old male was admitted on 05/31/20 for alcohol withdrawal sx management treating with valium regiment medical history of hypertension Vital Signs - 24 hr 06/01/20 06/01/20 06/02/20 16:54 20:49 05:37 Temperature 96.9 F L 97.4 F L 97.1 F L Pulse Rate 108 H 84 72 Respiratory 18 18 20 Rate Blood Pressure 121/79 146/85 150/94 O2 Sat by Pulse 98 100 98 Oximetry (%) 06/02/20 06/02/20 08:55 12:55 Temperature 96.9 F L 97.3 F L Pulse Rate 91 H 81 Respiratory 18 18 Rate Blood Pressure 152/79 149/80 O2 Sat by Pulse 99 Oximetry (%) treated with metoprolol hctz amlodipine Objective: 06/02/20 15:00 Vital Signs - 24 hr 06/01/20 06/01/20 06/02/20 16:54 20:49 05:37 Temperature 96.9 F L 97.4 F L 97.1 F L Pulse Rate 108 H 84 72 Respiratory 18 18 20 Rate Blood Pressure 121/79 146/85 150/94 O2 Sat by Pulse 98 100 98 Oximetry (%) 06/02/20 06/02/20 08:55 12:55 Temperature 96.9 F L 97.3 F L Pulse Rate 91 H 81 Respiratory 18 18 Rate Blood Pressure 152/79 149/80 O2 Sat by Pulse 99 Oximetry (%) Laboratory Tests 05/31/20 06/01/20 06/01/20 20:25 08:30 08:30 WBC 4.9 RBC 4.73 Hgb 15.4 Hct 46.0 MCV 97.4 H MCH 32.6 MCHC 33.5 RDW 13.2 Plt Count 156 MPV 10.3 D Sodium Potassium Chloride Carbon Dioxide Anion Gap BUN Creatinine Est GFR (CKD-EPI)AfAm Est GFR (CKD-EPI)NonAf Random Glucose Fasting Glucose Calcium Total Bilirubin AST ALT Alkaline Phosphatase Total Protein Albumin Syphilis Serology Non-reactive COVID-19 (DILAN) Not detected 06/01/20 06/02/20 08:30 08:30 WBC RBC Hgb Hct MCV MCH MCHC RDW Plt Count MPV Sodium 139 Potassium 4.2 Chloride 106 Carbon Dioxide 28 Anion Gap 5 L BUN 13.6 Creatinine 1.1 Est GFR (CKD-EPI)AfAm 88.98 Est GFR (CKD-EPI)NonAf 76.77 Random Glucose 131 H Fasting Glucose 116 H Calcium 9.2 Total Bilirubin 0.6 AST 22 ALT 21 Alkaline Phosphatase 78 Total Protein 7.1 Albumin 3.8 Syphilis Serology COVID-19 (DILAN) lab noted Assessment: 06/02/20 15:00 alcohol withdrawal hypertension Plan: valium regiment resume metoprolol hctz amlodipine
[2020-06-02] MEDS: amLODIPine BESYLATE 10 MG TABLET (FP) PO SCH (16:03)
[2020-06-02] MEDS ORDERED: QUEtiapine FUMARATE 100 MG TABLET (FP) ONE (21:01)
[2020-06-02] MEDS: THIAMINE HCL 100 MG TABLET (FP) PO SCH (23:45)
[2020-06-03] MEDS ORDERED: diazePAM 5 MG TABLET PO ONE (06:00)
[2020-06-03 06:41] VITALS: BP 139/78; PULSE 73; TEMP 96.9
[2020-06-03] MEDS: amLODIPine BESYLATE 10 MG TABLET (FP) PO SCH (09:48)
[2020-06-03] MEDS: QUEtiapine FUMARATE 300 MG TABLET PO SCH (09:49)
[2020-06-03] MEDS: PRENATAL VITAMINS W/ FOLIC ACID TABLET (FP) PO SCH (09:49)
[2020-06-03] MEDS ORDERED: METOPROLOL TARTRATE 25 MG TABLET (FP) PO SCH (10:00)
[2020-06-03] MEDS ORDERED: HYDROCHLOROTHIAZIDE 25 MG TABLET (FP) PO SCH (10:00)
--- NOTE | 2020-06-03 14:10 | DS ---
[facility] Detox Discharge Summary Admission Date: 05/31/20 Discharge Date: 06/03/20 - History Present History: Alcohol Dependence, Sedative Dependence Additional Comments: 54 years old male was admitted on 05/31/20 for alcohol and benzo withdrawal sx management treated with valium detox regiment seen by psychiatrist starr stephenson mr petit has completed the valium regiment and is tolerated well General Appearance: Yes: good hygiene, no Distress, mild tremor HEENTM: Yes: EOMI, Hearing grossly Normal, Normocephalic, Normal Voice Respiratory: Yes: Chest Non-Tender, Lungs Clear, Normal Breath Sounds, No Respiratory Distress, No Accessory Muscle Use Neck: Yes: No masses,lesions,Nodules, Trachea in good position Cardiology: Yes: Regular Rhythm, Regular Rate, S1, S2 Musculoskeletal: Yes: Gait Steady Extremities: Yes: Normal Range of Motion, Non-Tender Neurological: Yes: Alert, Motor Strength 5/5, Depressed Affect Integumentary: Yes: Warm, Other (superficial excoriation left anterior tibia states " from working ") Pertinent Past History: time for discharge 35 minutes - Physical Exam Results Vital Signs: Vital Signs Temperature 96.9 F L 06/03/20 06:41 Pulse Rate 73 06/03/20 06:41 Respiratory Rate 18 06/03/20 06:41 Blood Pressure 139/78 06/03/20 06:41 O2 Sat by Pulse Oximetry (%) 98 06/03/20 06:41 Pertinent Admission Physical Exam Findings: alcohol and benzo withdrawal Laboratory Tests 05/31/20 06/01/20 06/01/20 20:25 08:30 08:30 WBC 4.9 RBC 4.73 Hgb 15.4 Hct 46.0 MCV 97.4 H MCH 32.6 MCHC 33.5 RDW 13.2 Plt Count 156 MPV 10.3 D Sodium Potassium Chloride Carbon Dioxide Anion Gap BUN Creatinine Est GFR (CKD-EPI)AfAm Est GFR (CKD-EPI)NonAf Random Glucose Fasting Glucose Calcium Total Bilirubin AST ALT Alkaline Phosphatase Total Protein Albumin Syphilis Serology Non-reactive COVID-19 (DILAN) Not detected 06/01/20 06/02/20 08:30 08:30 WBC RBC Hgb Hct MCV MCH MCHC RDW Plt Count MPV Sodium 139 Potassium 4.2 Chloride 106 Carbon Dioxide 28 Anion Gap 5 L BUN 13.6 Creatinine 1.1 Est GFR (CKD-EPI)AfAm 88.98 Est GFR (CKD-EPI)NonAf 76.77 Random Glucose 131 H Fasting Glucose 116 H Calcium 9.2 Total Bilirubin 0.6 AST 22 ALT 21 Alkaline Phosphatase 78 Total Protein 7.1 Albumin 3.8 Syphilis Serology COVID-19 (DILAN) glucose elevation follow up with [facility] Course: Detox Protocol Followed, Detoxed Safely, Responded well, Discharged Condition Good, Rehab Referral Accepted Patient has Accepted a Rehab Referral to: [facility] - Medication Discharge Medications: Ambulatory Orders Cholecalciferol (Vitamin D3) [Vitamin D3] 50,000 unit PO WEEKLY 03/05/18 Simvastatin [Zocor -] 20 mg PO HS 03/05/18 Hydrochlorothiazide [Hctz -] 25 mg PO DAILY #30 tablet 03/18/18 Quetiapine Fumarate [Seroquel -] 400 mg PO BID #60 tablet 01/07/19 Amlodipine Besylate [Norvasc -] 10 mg PO DAILY 12/31/19 Metoprolol Tartrate 25 mg PO DAILY 12/31/19 - Diagnosis (1) Sedative, hypnotic or anxiolytic dependence, uncomplicated Status: Acute (2) Alcohol dependence with withdrawal Status: Acute Qualifiers: Complication of substance-induced condition: uncomplicated Qualified Code(s): F10.230 - Alcohol dependence with withdrawal, uncomplicated (3) HTN (hypertension) Status: Chronic Qualifiers: Hypertension type: essential hypertension Qualified Code(s): I10 - Essential (primary) hypertension (4) Hyperlipidemia Status: Chronic Qualifiers: Hyperlipidemia type: unspecified Qualified Code(s): E78.5 - Hyperlipidemia, unspecified (5) Nicotine dependence Status: Acute Qualifiers: Nicotine product type: cigarettes Substance use status: in withdrawal Qualified Code(s): F17.213 - Nicotine dependence, cigarettes, with withdrawal (6) Substance induced mood disorder Status: Suspected - AMA Did Patient Leave Against Medical Advice: No CIWA Score - CIWA Score Nausea/Vomitin-No Nausea/No Vomiting Muscle Tremors: 1-None Visible, but [place] Anxiety: 1-Mildly Anxious Agitation: 0-Normal Activity Paroxysmal Sweats: No Perspiration Orientation: 0-Oriented Tacttile Disturbances: 0-None Auditory Disturbances: 0-None Visual Disturbances: 0-None Headache: 0-None Present CIWA-Ar Total Score: 2
== END 2020-06-03 08:51 | disposition home or self-care (01) | DRG 774 ==
LOC: YASAS 15:21 → Y3N 19:36
PROVIDERS: ADMIT Allergy & Immunology; ATTEND Allergy & Immunology
PROC: HZ2ZZZZ Detoxification Services for Substance Abuse Treatment (ICD-10-PCS; principal; 2020-05-31)
DX: F10.230 Alcohol dependence with withdrawal, uncomplicated (principal); F13.230 Sedative, hypnotic or anxiolytic dependence with withdrawal, uncomplicated; F14.20 Cocaine dependence, uncomplicated; F17.210 Nicotine dependence, cigarettes, uncomplicated; F31.9 Bipolar disorder, unspecified; F19.24 Other psychoactive substance dependence with psychoactive substance-induced mood disorder; E78.5 Hyperlipidemia, unspecified; I10 Essential (primary) hypertension; R73.9 Hyperglycemia, unspecified; Z56.0 Unemployment, unspecified; Z59.0 Homelessness
CPT/HCPCS: 36415; 80053; 82947; 85027; 86780; U0003

== ENCOUNTER 2020-09-08 10:37 | Inpatient (IN) | payer OTHER ==
[2020-09-08 11:54] VITALS: BMI 27.6
[2020-09-08] MEDS ORDERED: MAGNESIUM HYDROX 2400MG/30ML ORAL SUSPENSION 30 ML CUP PO PRN (12:49)
[2020-09-08] MEDS ORDERED: MENTHOL/PHENOL 1 EACH UD MM PRN (12:49)
[2020-09-08] MEDS ORDERED: MAG HYDROX/AL HYDROX/SIMETH 30 ML UNIT-DOSE CUP PO PRN (12:49)
[2020-09-08] MEDS ORDERED: ACETAMINOPHEN 325 MG TABLET (FP) PO PRN ×2 (12:49)
[2020-09-08] MEDS ORDERED: BISMUTH SUBSALICYLATE 524 MG/30 ML UD PO PRN (12:49)
[2020-09-08] MEDS ORDERED: chlordiazePOXIDE HCL 25 MG CAPSULE PO PRN (12:49)
[2020-09-08] MEDS ORDERED: NICOTINE POLACRILEX 2 MG GUM BUC PRN (12:49)
[2020-09-08] MEDS ORDERED: METHOCARBAMOL 500 MG TABLET PO PRN (12:49)
[2020-09-08] MEDS ORDERED: ONDANSETRON *ODT* 4 MG TABLET SL PRN (12:49)
[2020-09-08] MEDS ORDERED: MAGNESIUM CITRATE 300 ML BOTTLE PO PRN (12:49)
[2020-09-08] MEDS ORDERED: IBUPROFEN 400 MG TABLET (FP) PO PRN (12:49)
[2020-09-08] MEDS: chlordiazePOXIDE HCL 25 MG CAPSULE PO SCH ×3 (13:48→22:33)
[2020-09-08] MEDS: NICOTINE 7 MG/24 HOURS TOPICAL PATCH TD SCH (13:49)
[2020-09-08] MEDS: PRENATAL VITAMINS W/ FOLIC ACID TABLET (FP) PO SCH (13:49)
[2020-09-08] MEDS: amLODIPine BESYLATE 10 MG TABLET (FP) PO SCH (14:41)
[2020-09-08] MEDS: hydrOXYzine PAMOATE 25 MG CAPSULE (FP) PO SCH ×3 (14:41→22:35)
[2020-09-08 14:56] LABS: HEMATOCRIT 40.5 % (35.4-49); HEMOGLOBIN 12.9 GM/dL (11.7-16.9); MCH 31.3 pg (25.7-33.7); MCHC 31.9 g/dl (32.0-35.9); MEAN PLT VOLUME 9.5 fl (7.5-11.1); PLATELET COUNT 190 K/MM3 (134-434); RBC 4.14 M/mm3 (4.00-5.60); RDW 13.2 % (11.9-15.9); WHITE BLOOD COUNT 5.1 K/mm3 (4.0-10.0)
[2020-09-08 15:07] LABS: POTASSIUM 4.1 mmol/L (3.5-5.1)
[2020-09-08 15:11] LABS: CALCIUM 9.5 mg/dL (8.5-10.1)
[2020-09-08 15:12] LABS: BLOOD UREA NITROGEN 9.4 mg/dL (7-18)
[2020-09-08 15:15] LABS: CREATININE 1.1 mg/dL (0.55-1.3)
[2020-09-08 15:16] LABS: TOT PROT 7.1 g/dl (6.4-8.2)
[2020-09-08 15:19] LABS: BILIRUBIN,TOTAL 0.2 mg/dL (0.2-1)
[2020-09-08 16:06] LABS: HIV INTERPRETATION NEGATIVE (NEGATIVE)
[2020-09-08] MEDS ORDERED: QUEtiapine FUMARATE 400 MG TABLET PO SCH (22:00)
[2020-09-08] MEDS: ATORVASTATIN CA 10 MG TABLET (FP) PO SCH (22:33)
[2020-09-08] MEDS: THIAMINE HCL 100 MG TABLET (FP) PO SCH (22:33)
[2020-09-08] MEDS: MELATONIN 5 MG TABLETS PO SCH (22:35)
[2020-09-09] MEDS: chlordiazePOXIDE HCL 25 MG CAPSULE PO SCH ×4 (06:34→23:26)
[2020-09-09] MEDS: hydrOXYzine PAMOATE 25 MG CAPSULE (FP) PO SCH ×5 (06:34→22:29)
[2020-09-09] MEDS ORDERED: amLODIPine BESYLATE 10 MG TABLET (FP) PO SCH (10:00)
[2020-09-09] MEDS: METOPROLOL TARTRATE 25 MG TABLET (FP) PO SCH (10:31)
[2020-09-09] MEDS: HYDROCHLOROTHIAZIDE 25 MG TABLET (FP) PO SCH (10:31)
[2020-09-09] MEDS: amLODIPine BESYLATE 10 MG TABLET (FP) PO SCH (10:32)
[2020-09-09] MEDS: PRENATAL VITAMINS W/ FOLIC ACID TABLET (FP) PO SCH (10:32)
[2020-09-09] MEDS: NICOTINE 7 MG/24 HOURS TOPICAL PATCH TD SCH (10:32)
[2020-09-09] MEDS ORDERED: QUEtiapine FUMARATE 400 MG TABLET PO ONE (22:00)
[2020-09-09] MEDS: ATORVASTATIN CA 10 MG TABLET (FP) PO SCH (22:29)
[2020-09-09] MEDS: MELATONIN 5 MG TABLETS PO SCH (22:29)
[2020-09-09] MEDS: THIAMINE HCL 100 MG TABLET (FP) PO SCH (22:30)
[2020-09-10] MEDS: chlordiazePOXIDE HCL 25 MG CAPSULE PO SCH ×4 (07:03→22:23)
[2020-09-10] MEDS: hydrOXYzine PAMOATE 25 MG CAPSULE (FP) PO SCH ×5 (07:04→22:24)
[2020-09-10] MEDS: amLODIPine BESYLATE 10 MG TABLET (FP) PO SCH (10:18)
[2020-09-10] MEDS: HYDROCHLOROTHIAZIDE 25 MG TABLET (FP) PO SCH (10:18)
[2020-09-10] MEDS: METOPROLOL TARTRATE 25 MG TABLET (FP) PO SCH (10:18)
[2020-09-10] MEDS: PRENATAL VITAMINS W/ FOLIC ACID TABLET (FP) PO SCH (10:19)
[2020-09-10] MEDS: NICOTINE 7 MG/24 HOURS TOPICAL PATCH TD SCH (10:19)
[2020-09-10] MEDS ORDERED: QUEtiapine FUMARATE 400 MG TABLET PO ONE (11:18)
[2020-09-10] MEDS: QUEtiapine FUMARATE 400 MG TABLET PO SCH (20:11)
[2020-09-10] MEDS: THIAMINE HCL 100 MG TABLET (FP) PO SCH (22:23)
[2020-09-10] MEDS: ATORVASTATIN CA 10 MG TABLET (FP) PO SCH (22:23)
[2020-09-10] MEDS: MELATONIN 5 MG TABLETS PO SCH (22:24)
[2020-09-11] MEDS ORDERED: chlordiazePOXIDE HCL 10 MG CAPSULE PO PRN
[2020-09-11] MEDS ORDERED: chlordiazePOXIDE HCL 10 MG CAPSULE PO SCH (05:00)
[2020-09-11] MEDS: hydrOXYzine PAMOATE 25 MG CAPSULE (FP) PO SCH ×4 (05:37→18:02)
[2020-09-11] MEDS: amLODIPine BESYLATE 10 MG TABLET (FP) PO SCH (10:51)
[2020-09-11] MEDS: HYDROCHLOROTHIAZIDE 25 MG TABLET (FP) PO SCH (10:52)
[2020-09-11] MEDS: NICOTINE 7 MG/24 HOURS TOPICAL PATCH TD SCH (10:52)
[2020-09-11] MEDS: PRENATAL VITAMINS W/ FOLIC ACID TABLET (FP) PO SCH (10:52)
[2020-09-11] MEDS: chlordiazePOXIDE HCL 10 MG CAPSULE PO SCH (10:52)
[2020-09-11] MEDS: METOPROLOL TARTRATE 25 MG TABLET (FP) PO SCH (10:52)
[2020-09-11] MEDS: QUEtiapine FUMARATE 400 MG TABLET PO SCH ×2 (10:52→20:06)
[2020-09-12] MEDS: THIAMINE HCL 100 MG TABLET (FP) PO SCH (00:08)
[2020-09-12] MEDS: hydrOXYzine PAMOATE 25 MG CAPSULE (FP) PO SCH ×3 (00:08→09:20)
[2020-09-12] MEDS: MELATONIN 5 MG TABLETS PO SCH (00:08)
[2020-09-12] MEDS: ATORVASTATIN CA 10 MG TABLET (FP) PO SCH (00:08)
[2020-09-12] MEDS: chlordiazePOXIDE HCL 10 MG CAPSULE PO SCH (00:08)
[2020-09-12] MEDS ORDERED: chlordiazePOXIDE HCL 10 MG CAPSULE PO ONE (05:00)
[2020-09-12] MEDS ORDERED: chlordiazePOXIDE HCL 10 MG CAPSULE PO SCH (05:00)
[2020-09-12] MEDS: METOPROLOL TARTRATE 25 MG TABLET (FP) PO SCH (09:19)
[2020-09-12] MEDS: HYDROCHLOROTHIAZIDE 25 MG TABLET (FP) PO SCH (09:19)
[2020-09-12] MEDS: NICOTINE 7 MG/24 HOURS TOPICAL PATCH TD SCH (09:19)
[2020-09-12] MEDS: PRENATAL VITAMINS W/ FOLIC ACID TABLET (FP) PO SCH (09:19)
[2020-09-12] MEDS: amLODIPine BESYLATE 10 MG TABLET (FP) PO SCH (09:19)
[2020-09-12] MEDS: QUEtiapine FUMARATE 400 MG TABLET PO SCH (09:20)
[2020-09-12 11:18] VITALS: BP 158/91; PULSE 97; TEMP 97.1
[2020-09-13] MEDS ORDERED: chlordiazePOXIDE HCL 10 MG CAPSULE PO ONE (05:00)
== END 2020-09-12 09:46 | disposition home or self-care (01) | DRG 774 ==
LOC: YASAS 10:37 → Y6N 13:21
PROVIDERS: ADMIT Allergy & Immunology; ATTEND Allergy & Immunology
PROC: HZ2ZZZZ Detoxification Services for Substance Abuse Treatment (ICD-10-PCS; principal; 2020-09-08)
DX: F10.230 Alcohol dependence with withdrawal, uncomplicated (principal); F14.20 Cocaine dependence, uncomplicated; F12.20 Cannabis dependence, uncomplicated; F17.210 Nicotine dependence, cigarettes, uncomplicated; F19.282 Other psychoactive substance dependence with psychoactive substance-induced sleep disorder; F31.9 Bipolar disorder, unspecified; I10 Essential (primary) hypertension; E78.5 Hyperlipidemia, unspecified; Z87.81 Personal history of (healed) traumatic fracture; Z98.890 Other specified postprocedural states; Z91.19 Patient's noncompliance with other medical treatment and regimen; Z59.0 Homelessness
CPT/HCPCS: 36415; 80053; 85027; 86780; 87389; C9803; U0003

== ENCOUNTER 2020-11-10 13:36 | Inpatient (IN) | payer OTHER ==
[2020-11-10 14:19] VITALS: BMI 26.9
[2020-11-10] MEDS ORDERED: MAGNESIUM CITRATE 300 ML BOTTLE PO PRN (15:15)
[2020-11-10] MEDS ORDERED: IBUPROFEN 400 MG TABLET (FP) PO PRN (15:15)
[2020-11-10] MEDS ORDERED: chlordiazePOXIDE HCL 25 MG CAPSULE PO PRN (15:15)
[2020-11-10] MEDS ORDERED: METHOCARBAMOL 500 MG TABLET PO PRN (15:15)
[2020-11-10] MEDS ORDERED: MAG HYDROX/AL HYDROX/SIMETH 30 ML UNIT-DOSE CUP PO PRN (15:15)
[2020-11-10] MEDS ORDERED: NICOTINE POLACRILEX 2 MG GUM BUC PRN (15:15)
[2020-11-10] MEDS ORDERED: MAGNESIUM HYDROX 2400MG/30ML ORAL SUSPENSION 30 ML CUP PO PRN (15:15)
[2020-11-10] MEDS ORDERED: MENTHOL/PHENOL 1 EACH UD MM PRN (15:15)
[2020-11-10] MEDS ORDERED: BISMUTH SUBSALICYLATE 524 MG/30 ML UD PO PRN (15:15)
[2020-11-10] MEDS ORDERED: ONDANSETRON *ODT* 4 MG TABLET SL PRN (15:15)
[2020-11-10] MEDS ORDERED: ACETAMINOPHEN 325 MG TABLET (FP) PO PRN ×2 (15:15)
[2020-11-10] MEDS: hydrOXYzine PAMOATE 25 MG CAPSULE (FP) PO SCH ×2 (17:02→22:26)
[2020-11-10] MEDS: HYDROCHLOROTHIAZIDE 25 MG TABLET (FP) PO SCH (17:03)
[2020-11-10] MEDS: chlordiazePOXIDE HCL 25 MG CAPSULE PO SCH ×2 (17:03→22:28)
[2020-11-10] MEDS: amLODIPine BESYLATE 10 MG TABLET (FP) PO SCH (17:03)
[2020-11-10 17:47] LABS: POTASSIUM 4.5 mmol/L (3.5-5.1)
[2020-11-10 17:49] LABS: HEMOGLOBIN 13.8 GM/dL (11.7-16.9); MCH 32.1 pg (25.7-33.7); MEAN CELL VOLUME 97.4 fl (80-96); MEAN PLT VOLUME 9.8 fl (7.5-11.1); PLATELET COUNT 199 K/MM3 (134-434); RBC 4.31 M/mm3 (4.00-5.60); RDW 12.6 % (11.9-15.9); WHITE BLOOD COUNT 4.1 K/mm3 (4.0-10.0)
[2020-11-10 17:50] LABS: CALCIUM 9.1 mg/dL (8.5-10.1)
[2020-11-10 17:51] LABS: ALBUMIN 4.1 g/dl (3.4-5.0); BLOOD UREA NITROGEN 11.3 mg/dL (7-18)
[2020-11-10 17:54] LABS: CREATININE 1.2 mg/dL (0.55-1.3)
[2020-11-10 17:55] LABS: BILIRUBIN,TOTAL 0.2 mg/dL (0.2-1); TOT PROT 7.6 g/dl (6.4-8.2)
[2020-11-10] MEDS: MELATONIN 5 MG TABLETS PO SCH (22:25)
[2020-11-10] MEDS: THIAMINE HCL 100 MG TABLET (FP) PO SCH (22:26)
[2020-11-11] MEDS: chlordiazePOXIDE HCL 25 MG CAPSULE PO SCH ×4 (05:23→22:58)
[2020-11-11] MEDS: hydrOXYzine PAMOATE 25 MG CAPSULE (FP) PO SCH ×5 (07:07→22:39)
[2020-11-11] MEDS: HYDROCHLOROTHIAZIDE 25 MG TABLET (FP) PO SCH (10:20)
[2020-11-11] MEDS: amLODIPine BESYLATE 10 MG TABLET (FP) PO SCH (10:20)
[2020-11-11] MEDS: PRENATAL VITAMINS W/ FOLIC ACID TABLET (FP) PO SCH (10:21)
[2020-11-11] MEDS: ATORVASTATIN CA 10 MG TABLET (FP) PO SCH (22:38)
[2020-11-11] MEDS: QUEtiapine FUMARATE 400 MG TABLET PO SCH (22:38)
[2020-11-11] MEDS: THIAMINE HCL 100 MG TABLET (FP) PO SCH (22:38)
[2020-11-11] MEDS: MELATONIN 5 MG TABLETS PO SCH (22:39)
[2020-11-12] MEDS: chlordiazePOXIDE HCL 25 MG CAPSULE PO SCH ×4 (06:17→22:05)
[2020-11-12] MEDS: hydrOXYzine PAMOATE 25 MG CAPSULE (FP) PO SCH ×5 (06:18→22:05)
[2020-11-12] MEDS ORDERED: MASKS NR ONE (08:46)
[2020-11-12] MEDS ORDERED: ERGOCALCIFEROL (VIT D2) 50,000 UNIT (1.25 MG) CAPSULE PO SCH (10:00)
[2020-11-12] MEDS: amLODIPine BESYLATE 10 MG TABLET (FP) PO SCH (10:12)
[2020-11-12] MEDS: HYDROCHLOROTHIAZIDE 25 MG TABLET (FP) PO SCH (10:12)
[2020-11-12] MEDS: QUEtiapine FUMARATE 400 MG TABLET PO SCH ×2 (10:12→22:05)
[2020-11-12] MEDS: METOPROLOL TARTRATE 25 MG TABLET (FP) PO SCH (10:12)
[2020-11-12] MEDS: PRENATAL VITAMINS W/ FOLIC ACID TABLET (FP) PO SCH (10:13)
[2020-11-12] MEDS: THIAMINE HCL 100 MG TABLET (FP) PO SCH (22:05)
[2020-11-12] MEDS: ATORVASTATIN CA 10 MG TABLET (FP) PO SCH (22:05)
[2020-11-12] MEDS: MELATONIN 5 MG TABLETS PO SCH (22:06)
[2020-11-13] MEDS ORDERED: chlordiazePOXIDE HCL 10 MG CAPSULE PO PRN
[2020-11-13] MEDS: chlordiazePOXIDE HCL 10 MG CAPSULE PO SCH ×4 (06:14→21:59)
[2020-11-13] MEDS: hydrOXYzine PAMOATE 25 MG CAPSULE (FP) PO SCH ×3 (06:15→17:37)
[2020-11-13] MEDS: QUEtiapine FUMARATE 400 MG TABLET PO SCH ×2 (10:20→21:58)
[2020-11-13] MEDS: METOPROLOL TARTRATE 25 MG TABLET (FP) PO SCH (10:20)
[2020-11-13] MEDS: HYDROCHLOROTHIAZIDE 25 MG TABLET (FP) PO SCH (10:20)
[2020-11-13] MEDS: amLODIPine BESYLATE 10 MG TABLET (FP) PO SCH (10:21)
[2020-11-13] MEDS: PRENATAL VITAMINS W/ FOLIC ACID TABLET (FP) PO SCH (10:21)
[2020-11-13] MEDS: THIAMINE HCL 100 MG TABLET (FP) PO SCH (21:58)
[2020-11-13] MEDS: ATORVASTATIN CA 10 MG TABLET (FP) PO SCH (21:58)
[2020-11-13] MEDS: MELATONIN 5 MG TABLETS PO SCH (22:01)
[2020-11-14] MEDS ORDERED: chlordiazePOXIDE HCL 10 MG CAPSULE PO ONE (05:00)
[2020-11-14] MEDS ORDERED: chlordiazePOXIDE HCL 10 MG CAPSULE PO SCH (05:00)
[2020-11-14] MEDS: hydrOXYzine PAMOATE 25 MG CAPSULE (FP) PO SCH (06:45)
[2020-11-14 09:51] VITALS: BP 151/89; PULSE 97; TEMP 97.1
[2020-11-15] MEDS ORDERED: chlordiazePOXIDE HCL 10 MG CAPSULE PO ONE (05:00)
== END 2020-11-14 09:53 | disposition home or self-care (01) | DRG 774 ==
LOC: YASAS 13:36 → Y6N 15:31
PROVIDERS: ADMIT Allergy & Immunology; ATTEND Allergy & Immunology
PROC: HZ2ZZZZ Detoxification Services for Substance Abuse Treatment (ICD-10-PCS; principal; 2020-11-10)
DX: F10.230 Alcohol dependence with withdrawal, uncomplicated (principal); F14.20 Cocaine dependence, uncomplicated; F12.20 Cannabis dependence, uncomplicated; F17.210 Nicotine dependence, cigarettes, uncomplicated; F31.9 Bipolar disorder, unspecified; F19.282 Other psychoactive substance dependence with psychoactive substance-induced sleep disorder; I10 Essential (primary) hypertension; E78.5 Hyperlipidemia, unspecified
CPT/HCPCS: 36415; 80053; 85027; 86780; C9803; U0003

== ENCOUNTER 2021-06-24 10:57 | Inpatient (IN) | payer OTHER ==
[2021-06-24 13:26] VITALS: BMI 25.8
[2021-06-24] MEDS ORDERED: MAGNESIUM CITRATE 300 ML BOTTLE PO PRN (14:49)
[2021-06-24] MEDS ORDERED: diazePAM 5 MG TABLET PO PRN (14:49)
[2021-06-24] MEDS ORDERED: MENTHOL/PHENOL 1 EACH UD MM PRN (14:49)
[2021-06-24] MEDS ORDERED: METHOCARBAMOL 500 MG TABLET PO PRN (14:49)
[2021-06-24] MEDS ORDERED: MAGNESIUM HYDROX 2400MG/30ML ORAL SUSPENSION 30 ML CUP PO PRN (14:49)
[2021-06-24] MEDS ORDERED: hydrOXYzine PAMOATE 25 MG CAPSULE (FP) PO PRN (14:49)
[2021-06-24] MEDS ORDERED: BISMUTH SUBSALICYLATE 524 MG/30 ML PO PRN (14:49)
[2021-06-24] MEDS ORDERED: IBUPROFEN 400 MG TABLET (FP) PO PRN (14:49)
[2021-06-24] MEDS ORDERED: ACETAMINOPHEN 325 MG TABLET (FP) PO PRN ×2 (14:49)
[2021-06-24] MEDS ORDERED: NICOTINE 10 MG CARTRIDGE (INHALER) IH PRN (14:49)
[2021-06-24] MEDS ORDERED: MAG HYDROX/AL HYDROX/SIMETH 30 ML UNIT-DOSE CUP PO PRN (14:49)
[2021-06-24] MEDS ORDERED: ONDANSETRON *ODT* 4 MG TABLET SL PRN (14:49)
[2021-06-24] MEDS: diazePAM 5 MG TABLET PO SCH ×2 (18:22→22:30)
[2021-06-24] MEDS: HYDROCHLOROTHIAZIDE 25 MG TABLET (FP) PO SCH (18:23)
[2021-06-24] MEDS: amLODIPine BESYLATE 10 MG TABLET (FP) PO SCH (18:23)
[2021-06-24] MEDS: METOPROLOL TARTRATE 25 MG TABLET (FP) PO SCH (18:56)
[2021-06-24] MEDS ORDERED: MELATONIN 5 MG TABLETS PO SCH (22:00)
[2021-06-24] MEDS: THIAMINE HCL 100 MG TABLET (FP) PO SCH (22:30)
[2021-06-24] MEDS: ATORVASTATIN CA 10 MG TABLET (FP) PO SCH (22:30)
[2021-06-25] MEDS: diazePAM 5 MG TABLET PO SCH ×4 (05:24→22:39)
[2021-06-25] MEDS ORDERED: QUEtiapine FUMARATE 400 MG TABLET PO SCH (10:00)
[2021-06-25] MEDS: PRENATAL VITAMINS W/ FOLIC ACID TABLET (FP) PO SCH (10:49)
[2021-06-25] MEDS: HYDROCHLOROTHIAZIDE 25 MG TABLET (FP) PO SCH (10:49)
[2021-06-25] MEDS: amLODIPine BESYLATE 10 MG TABLET (FP) PO SCH (10:49)
[2021-06-25] MEDS: NICOTINE 7 MG/24 HOURS TOPICAL PATCH TD SCH (10:50)
[2021-06-25] MEDS ORDERED: QUEtiapine FUMARATE 100 MG TABLET (FP) PO ONE (11:26)
[2021-06-25] MEDS: METOPROLOL TARTRATE 25 MG TABLET (FP) PO SCH (11:53)
[2021-06-25] MEDS: QUEtiapine FUMARATE 200 MG TABLET PO SCH (22:40)
[2021-06-25] MEDS: ATORVASTATIN CA 10 MG TABLET (FP) PO SCH (22:40)
[2021-06-25] MEDS: THIAMINE HCL 100 MG TABLET (FP) PO SCH (22:40)
[2021-06-26] MEDS: diazePAM 5 MG TABLET PO SCH ×2 (05:15→14:20)
[2021-06-26] MEDS: METOPROLOL TARTRATE 25 MG TABLET (FP) PO SCH (10:53)
[2021-06-26] MEDS: HYDROCHLOROTHIAZIDE 25 MG TABLET (FP) PO SCH (10:53)
[2021-06-26] MEDS: amLODIPine BESYLATE 10 MG TABLET (FP) PO SCH (10:53)
[2021-06-26] MEDS: NICOTINE 7 MG/24 HOURS TOPICAL PATCH TD SCH (10:54)
[2021-06-26] MEDS: PRENATAL VITAMINS W/ FOLIC ACID TABLET (FP) PO SCH (10:54)
[2021-06-26] MEDS: QUEtiapine FUMARATE 200 MG TABLET PO SCH ×2 (10:55→21:31)
[2021-06-27] MEDS: diazePAM 5 MG TABLET PO SCH ×3 (00:07→18:27)
[2021-06-27] MEDS: ATORVASTATIN CA 10 MG TABLET (FP) PO SCH ×2 (00:07→21:59)
[2021-06-27] MEDS: THIAMINE HCL 100 MG TABLET (FP) PO SCH ×2 (00:30→22:00)
[2021-06-27] MEDS: QUEtiapine FUMARATE 200 MG TABLET PO SCH (12:02)
[2021-06-27] MEDS ORDERED: QUEtiapine FUMARATE 200 MG TABLET PO ONE (12:03)
[2021-06-27] MEDS: HYDROCHLOROTHIAZIDE 25 MG TABLET (FP) PO SCH (12:49)
[2021-06-27] MEDS: PRENATAL VITAMINS W/ FOLIC ACID TABLET (FP) PO SCH (12:49)
[2021-06-27] MEDS: amLODIPine BESYLATE 10 MG TABLET (FP) PO SCH (12:50)
[2021-06-27] MEDS: NICOTINE 7 MG/24 HOURS TOPICAL PATCH TD SCH (12:50)
[2021-06-27] MEDS: METOPROLOL TARTRATE 25 MG TABLET (FP) PO SCH (12:50)
[2021-06-27] MEDS ORDERED: QUEtiapine FUMARATE 200 MG TABLET PO SCH (22:00)
[2021-06-28] MEDS ORDERED: diazePAM 5 MG TABLET PO ONE (06:00)
[2021-06-28 09:20] VITALS: BP 149/92; PULSE 90; TEMP 96.9
[2021-06-28] MEDS ORDERED: QUEtiapine FUMARATE 200 MG TABLET PO SCH (10:00)
== END 2021-06-28 09:15 | disposition home or self-care (01) | DRG 774 ==
LOC: YASAS 10:57 → Y3N 14:08
PROVIDERS: ADMIT Allergy & Immunology; ATTEND Allergy & Immunology
PROC: HZ2ZZZZ Detoxification Services for Substance Abuse Treatment (ICD-10-PCS; principal; 2021-06-24)
DX: F10.230 Alcohol dependence with withdrawal, uncomplicated (principal); F14.20 Cocaine dependence, uncomplicated; F12.20 Cannabis dependence, uncomplicated; F17.210 Nicotine dependence, cigarettes, uncomplicated; F31.9 Bipolar disorder, unspecified; F19.282 Other psychoactive substance dependence with psychoactive substance-induced sleep disorder; F19.24 Other psychoactive substance dependence with psychoactive substance-induced mood disorder; I10 Essential (primary) hypertension; E78.5 Hyperlipidemia, unspecified
CPT/HCPCS: C9803; U0003; U0005

== ENCOUNTER 2021-08-24 10:43 | Inpatient (IN) | payer OTHER ==
[2021-08-24] MEDS ORDERED: MAGNESIUM CITRATE 300 ML BOTTLE PO PRN (11:14)
[2021-08-24] MEDS ORDERED: IBUPROFEN 400 MG TABLET (FP) PO PRN (11:14)
[2021-08-24] MEDS ORDERED: MAGNESIUM HYDROX 2400MG/30ML ORAL SUSPENSION 30 ML CUP PO PRN (11:14)
[2021-08-24] MEDS ORDERED: BISMUTH SUBSALICYLATE 262 MG/15 ML BTL PO PRN (11:14)
[2021-08-24] MEDS ORDERED: METHOCARBAMOL 500 MG TABLET PO PRN (11:14)
[2021-08-24] MEDS ORDERED: NICOTINE 10 MG CARTRIDGE (INHALER) IH PRN (11:14)
[2021-08-24] MEDS ORDERED: MAG HYDROX/AL HYDROX/SIMETH 30 ML UNIT-DOSE CUP PO PRN (11:14)
[2021-08-24] MEDS ORDERED: diazePAM 5 MG TABLET PO PRN (11:14)
[2021-08-24] MEDS ORDERED: ACETAMINOPHEN 325 MG TABLET (FP) PO PRN ×2 (11:14)
[2021-08-24] MEDS ORDERED: MENTHOL/PHENOL 1 EACH UD MM PRN (11:14)
[2021-08-24] MEDS ORDERED: ONDANSETRON *ODT* 4 MG TABLET SL PRN (11:14)
[2021-08-24 11:19] VITALS: BMI 28.5
[2021-08-24] MEDS: hydrOXYzine PAMOATE 25 MG CAPSULE (FP) PO SCH ×3 (14:48→22:08)
[2021-08-24] MEDS: PRENATAL VITAMINS W/ FOLIC ACID TABLET (FP) PO SCH (14:48)
[2021-08-24 17:24] LABS: HEMATOCRIT 42.9 % (35.4-49); HEMOGLOBIN 14.4 GM/dL (11.7-16.9); MCH 31.6 pg (25.7-33.7); MCHC 33.6 g/dl (32.0-35.9); MEAN CELL VOLUME 93.8 fl (80-96); MEAN PLT VOLUME 9.2 fl (7.5-11.1); PLATELET COUNT 185 10^3/uL (134-434); RBC 4.57 M/mm3 (4.00-5.60); RDW 13.6 % (11.9-15.9); WHITE BLOOD COUNT 4.8 K/mm3 (4.0-10.0)
[2021-08-24 17:31] LABS: CALCIUM 8.9 mg/dL (8.5-10.1)
[2021-08-24 17:32] LABS: ALBUMIN 3.7 g/dl (3.4-5.0); BLOOD UREA NITROGEN 8.2 mg/dL (7-18)
[2021-08-24 17:35] LABS: CREATININE 1.1 mg/dL (0.55-1.3)
[2021-08-24 17:37] LABS: BILIRUBIN,TOTAL 0.6 mg/dL (0.2-1); TOT PROT 7.2 g/dl (6.4-8.2)
[2021-08-24] MEDS: diazePAM 5 MG TABLET PO SCH ×2 (18:15→22:08)
[2021-08-24] MEDS: QUEtiapine FUMARATE 400 MG TABLET PO SCH (22:08)
[2021-08-24] MEDS: MELATONIN 5 MG TABLETS PO SCH (22:08)
[2021-08-24] MEDS: THIAMINE HCL 100 MG TABLET (FP) PO SCH (22:08)
[2021-08-25] MEDS: diazePAM 5 MG TABLET PO SCH ×4 (05:43→22:34)
[2021-08-25] MEDS: hydrOXYzine PAMOATE 25 MG CAPSULE (FP) PO SCH ×5 (05:43→22:31)
[2021-08-25] MEDS ORDERED: ERGOCALCIFEROL (VIT D2) 50,000 UNIT (1.25 MG) CAPSULE PO SCH (10:00)
[2021-08-25] MEDS: PANTOPRAZOLE 20 MG TABLET PO SCH (10:13)
[2021-08-25] MEDS: amLODIPine BESYLATE 10 MG TABLET (FP) PO SCH (10:13)
[2021-08-25] MEDS: METOPROLOL TARTRATE 25 MG TABLET (FP) PO SCH (10:14)
[2021-08-25] MEDS: PRENATAL VITAMINS W/ FOLIC ACID TABLET (FP) PO SCH (10:14)
[2021-08-25] MEDS: HYDROCHLOROTHIAZIDE 25 MG TABLET (FP) PO SCH (10:15)
[2021-08-25] MEDS: QUEtiapine FUMARATE 400 MG TABLET PO SCH ×2 (10:15→22:32)
[2021-08-25] MEDS ORDERED: FLU VACC QS2021-22(6MOS UP)/PF 60 MCG/0.5 ML SYRINGE IM ONE (12:00)
[2021-08-25] MEDS: ATORVASTATIN CA 10 MG TABLET (FP) PO SCH (22:31)
[2021-08-25] MEDS: THIAMINE HCL 100 MG TABLET (FP) PO SCH (22:31)
[2021-08-25] MEDS: MELATONIN 5 MG TABLETS PO SCH (22:31)
[2021-08-26] MEDS: diazePAM 5 MG TABLET PO SCH ×3 (06:10→22:42)
[2021-08-26] MEDS: hydrOXYzine PAMOATE 25 MG CAPSULE (FP) PO SCH ×5 (06:11→22:42)
[2021-08-26] MEDS: QUEtiapine FUMARATE 400 MG TABLET PO SCH ×2 (10:01→22:43)
[2021-08-26] MEDS: METOPROLOL TARTRATE 25 MG TABLET (FP) PO SCH (10:01)
[2021-08-26] MEDS: PRENATAL VITAMINS W/ FOLIC ACID TABLET (FP) PO SCH (10:01)
[2021-08-26] MEDS: amLODIPine BESYLATE 10 MG TABLET (FP) PO SCH (10:01)
[2021-08-26] MEDS: HYDROCHLOROTHIAZIDE 25 MG TABLET (FP) PO SCH (10:01)
[2021-08-26] MEDS: PANTOPRAZOLE 20 MG TABLET PO SCH (10:01)
[2021-08-26] MEDS: THIAMINE HCL 100 MG TABLET (FP) PO SCH (22:42)
[2021-08-26] MEDS: MELATONIN 5 MG TABLETS PO SCH (22:42)
[2021-08-26] MEDS: ATORVASTATIN CA 10 MG TABLET (FP) PO SCH (22:42)
[2021-08-27] MEDS: diazePAM 5 MG TABLET PO SCH ×2 (06:19→17:45)
[2021-08-27] MEDS: hydrOXYzine PAMOATE 25 MG CAPSULE (FP) PO SCH ×5 (06:19→21:50)
[2021-08-27] MEDS: QUEtiapine FUMARATE 400 MG TABLET PO SCH ×2 (10:15→21:49)
[2021-08-27] MEDS: amLODIPine BESYLATE 10 MG TABLET (FP) PO SCH (10:15)
[2021-08-27] MEDS: METOPROLOL TARTRATE 25 MG TABLET (FP) PO SCH (10:15)
[2021-08-27] MEDS: PANTOPRAZOLE 20 MG TABLET PO SCH (10:15)
[2021-08-27] MEDS: HYDROCHLOROTHIAZIDE 25 MG TABLET (FP) PO SCH (10:15)
[2021-08-27] MEDS: PRENATAL VITAMINS W/ FOLIC ACID TABLET (FP) PO SCH (10:15)
[2021-08-27] MEDS: ATORVASTATIN CA 10 MG TABLET (FP) PO SCH (21:49)
[2021-08-27] MEDS: THIAMINE HCL 100 MG TABLET (FP) PO SCH (21:49)
[2021-08-27] MEDS: MELATONIN 5 MG TABLETS PO SCH (21:49)
[2021-08-28] MEDS: hydrOXYzine PAMOATE 25 MG CAPSULE (FP) PO SCH (05:34)
[2021-08-28] MEDS ORDERED: diazePAM 5 MG TABLET PO ONE (06:00)
[2021-08-28 09:18] VITALS: BP 154/99; PULSE 109; TEMP 96.9
== END 2021-08-28 09:10 | disposition home or self-care (01) | DRG 774 ==
LOC: YASAS 10:43 → Y3N 11:25
PROVIDERS: ADMIT Allergy & Immunology; ATTEND Allergy & Immunology
PROC: HZ2ZZZZ Detoxification Services for Substance Abuse Treatment (ICD-10-PCS; principal; 2021-08-24)
DX: F10.230 Alcohol dependence with withdrawal, uncomplicated (principal); F14.20 Cocaine dependence, uncomplicated; F12.20 Cannabis dependence, uncomplicated; F17.210 Nicotine dependence, cigarettes, uncomplicated; F31.9 Bipolar disorder, unspecified; E78.5 Hyperlipidemia, unspecified; G47.00 Insomnia, unspecified; I10 Essential (primary) hypertension; J45.909 Unspecified asthma, uncomplicated; K21.9 Gastro-esophageal reflux disease without esophagitis
CPT/HCPCS: 36415; 80053; 85027; 86780; C9803; U0003; U0005

== ENCOUNTER 2022-07-21 12:41 | Inpatient (IN) | payer OTHER ==
[2022-07-21 14:28] VITALS: BMI 26.9
[2022-07-21] MEDS ORDERED: NALOXONE HCL (KLOXXADO) 8 MG SPRAY NS PRN (17:02)
[2022-07-21] MEDS ORDERED: MAG HYDROX/AL HYDROX/SIMETH 30 ML UNIT-DOSE CUP PO PRN (17:02)
[2022-07-21] MEDS ORDERED: ACETAMINOPHEN 325 MG TABLET (FP) PO PRN ×2 (17:02)
[2022-07-21] MEDS ORDERED: LOPERAMIDE HCL 2 MG CAPSULE PO PRN (17:02)
[2022-07-21] MEDS ORDERED: BISMUTH SUBSALICYLATE 524 MG/30 ML PO PRN (17:02)
[2022-07-21] MEDS ORDERED: BENZOCAINE/MENTHOL (CHLORASEPTIC ) LOZENGE MM PRN (17:02)
[2022-07-21] MEDS ORDERED: DICYCLOMINE HCL 10 MG CAPSULE PO PRN (17:02)
[2022-07-21] MEDS ORDERED: MAGNESIUM HYDROX 2400MG/30ML ORAL SUSPENSION 30 ML CUP PO PRN (17:02)
[2022-07-21] MEDS ORDERED: NICOTINE 10 MG CARTRIDGE (INHALER) IH PRN (17:02)
[2022-07-21] MEDS ORDERED: ONDANSETRON *ODT* 4 MG TABLET SL PRN (17:02)
[2022-07-21] MEDS ORDERED: MAGNESIUM CITRATE 300 ML BOTTLE PO PRN (17:02)
[2022-07-21] MEDS ORDERED: IBUPROFEN 400 MG TABLET (FP) PO PRN (17:02)
[2022-07-21] MEDS ORDERED: IBUPROFEN 600 MG TABLET (FP) PO PRN (17:02)
[2022-07-21] MEDS ORDERED: diazePAM 5 MG TABLET PO PRN (17:12)
[2022-07-21] MEDS: hydrOXYzine PAMOATE 25 MG CAPSULE (FP) PO SCH ×2 (18:10→22:19)
[2022-07-21] MEDS: MELATONIN 5 MG TABLETS PO SCH (22:19)
[2022-07-21] MEDS: ATORVASTATIN CA 10 MG TABLET (FP) PO SCH (22:19)
[2022-07-21] MEDS: METHOCARBAMOL 500 MG TABLET PO PRN (22:19)
[2022-07-21] MEDS: THIAMINE HCL 100 MG TABLET (FP) PO SCH (22:19)
[2022-07-22] MEDS: hydrOXYzine PAMOATE 25 MG CAPSULE (FP) PO SCH ×5 (06:09→22:03)
[2022-07-22] MEDS: amLODIPine BESYLATE 10 MG TABLET (FP) PO SCH (10:10)
[2022-07-22] MEDS: QUEtiapine FUMARATE 400 MG TABLET PO SCH ×2 (10:10→22:03)
[2022-07-22] MEDS: PRENATAL VITAMINS W/ FOLIC ACID TABLET (FP) PO SCH (10:10)
[2022-07-22] MEDS: METHOCARBAMOL 500 MG TABLET PO PRN (10:11)
[2022-07-22 12:14] LABS: HEMATOCRIT 42.4 % (35.4-49); HEMOGLOBIN 13.9 GM/dL (11.7-16.9); MCH 31.4 pg (25.7-33.7); MCHC 32.8 g/dl (32.0-35.9); MEAN CELL VOLUME 95.6 fl (80-96); MEAN PLT VOLUME 9.4 fl (7.5-11.1); PLATELET COUNT 230 10^3/uL (134-434); RBC 4.44 M/mm3 (4.00-5.60); RDW 13.2 % (11.9-15.9)
[2022-07-22 12:24] LABS: ALBUMIN 3.5 g/dl (3.4-5.0); BLOOD UREA NITROGEN 12.5 mg/dL (7-18); CALCIUM 9.4 mg/dL (8.5-10.1)
[2022-07-22 12:28] LABS: BILIRUBIN,TOTAL 0.3 mg/dL (0.2-1)
[2022-07-22 12:29] LABS: TOT PROT 6.8 g/dl (6.4-8.2)
[2022-07-22] MEDS: ATORVASTATIN CA 10 MG TABLET (FP) PO SCH (22:02)
[2022-07-22] MEDS: THIAMINE HCL 100 MG TABLET (FP) PO SCH (22:03)
[2022-07-22] MEDS: MELATONIN 5 MG TABLETS PO SCH (22:03)
[2022-07-23] MEDS: METHOCARBAMOL 500 MG TABLET PO PRN (05:16)
[2022-07-23] MEDS: hydrOXYzine PAMOATE 25 MG CAPSULE (FP) PO SCH ×2 (05:16→10:05)
[2022-07-23 06:51] VITALS: RESP 17
[2022-07-23 09:45] VITALS: BP 136/79; PULSE 86; TEMP 98
[2022-07-23] MEDS: PRENATAL VITAMINS W/ FOLIC ACID TABLET (FP) PO SCH (10:05)
[2022-07-23] MEDS: QUEtiapine FUMARATE 400 MG TABLET PO SCH (10:05)
[2022-07-23] MEDS: amLODIPine BESYLATE 10 MG TABLET (FP) PO SCH (10:05)
== END 2022-07-23 10:40 | disposition home or self-care (01) | DRG 774 ==
LOC: YASAS 12:41 → UNDOADMIN 17:19 → Y6N 17:19
PROVIDERS: ADMIT Allergy & Immunology; ATTEND Surgery
PROC: HZ2ZZZZ Detoxification Services for Substance Abuse Treatment (ICD-10-PCS; principal; 2022-07-21)
DX: F10.230 Alcohol dependence with withdrawal, uncomplicated (principal); F14.20 Cocaine dependence, uncomplicated; F12.20 Cannabis dependence, uncomplicated; F17.210 Nicotine dependence, cigarettes, uncomplicated; F19.24 Other psychoactive substance dependence with psychoactive substance-induced mood disorder; F31.9 Bipolar disorder, unspecified; I10 Essential (primary) hypertension; E78.5 Hyperlipidemia, unspecified; K21.9 Gastro-esophageal reflux disease without esophagitis
CPT/HCPCS: 36415; 80053; 85027; 86780; C9803-CS; U0003; U0005

== ENCOUNTER 2023-05-30 12:53 | Inpatient (IN) | payer OTHER ==
[2023-05-30 13:34] VITALS: BMI 27.3
[2023-05-30] MEDS ORDERED: POLYETHYLENE GLYCOL (HEALTHYLAX) 3350 17 GM PACKET PO PRN (16:50)
[2023-05-30] MEDS ORDERED: NICOTINE POLACRILEX 2 MG GUM BUC PRN (16:50)
[2023-05-30] MEDS ORDERED: hydrOXYzine PAMOATE 25 MG CAPSULE (FP) PO PRN (16:50)
[2023-05-30] MEDS ORDERED: METHOCARBAMOL 500 MG TABLET PO PRN (16:50)
[2023-05-30] MEDS ORDERED: guaiFENesin 600 MG TABLET.ER (FP) PO PRN (16:50)
[2023-05-30] MEDS ORDERED: P-EPHED 60MG/TRIPROLIDI 2.5MG TABLET PO PRN (16:50)
[2023-05-30] MEDS ORDERED: ACETAMINOPHEN 325 MG TABLET (FP) PO PRN (16:50)
[2023-05-30] MEDS ORDERED: BENZOCAINE/MENTHOL (CHLORASEPTIC ) LOZENGE MM PRN (16:50)
[2023-05-30] MEDS ORDERED: DICYCLOMINE HCL 10 MG CAPSULE PO PRN (16:50)
[2023-05-30] MEDS ORDERED: BENZONATATE 200 MG CAPSULE PO PRN (16:50)
[2023-05-30] MEDS ORDERED: IBUPROFEN 400 MG TABLET (FP) PO PRN (16:50)
[2023-05-30] MEDS ORDERED: BISMUTH SUBSALICYLATE 524 MG/30 ML PO PRN (16:50)
[2023-05-30] MEDS ORDERED: IBUPROFEN 600 MG TABLET (FP) PO PRN (16:50)
[2023-05-30] MEDS ORDERED: MAGNESIUM HYDROX 2400MG/30ML ORAL SUSPENSION 30 ML CUP PO PRN (16:50)
[2023-05-30] MEDS ORDERED: MAG HYDROX/AL HYDROX/SIMETH 30 ML UNIT-DOSE CUP PO PRN (16:50)
[2023-05-30] MEDS ORDERED: LOPERAMIDE HCL 2 MG CAPSULE PO PRN (16:50)
[2023-05-30] MEDS ORDERED: ONDANSETRON *ODT* 4 MG TABLET SL PRN (16:50)
[2023-05-30] MEDS ORDERED: QUEtiapine FUMARATE 400 MG TABLET PO ONE (22:00)
[2023-05-30] MEDS: THIAMINE HCL 100 MG TABLET (FP) PO SCH (22:21)
[2023-05-30] MEDS: MELATONIN 5 MG TABLETS PO SCH (22:21)
[2023-05-31] MEDS: QUEtiapine FUMARATE 400 MG TABLET PO SCH ×2 (10:26→22:16)
[2023-05-31] MEDS: amLODIPine BESYLATE 10 MG TABLET (FP) PO SCH (10:27)
[2023-05-31] MEDS: PRENATAL VITAMINS W/ FOLIC ACID TABLET (FP) PO SCH (10:27)
[2023-05-31] MEDS ORDERED: chlordiazePOXIDE HCL 25 MG CAPSULE PO PRN (10:55)
[2023-05-31 11:10] LABS: HEMOGLOBIN 14.1 GM/dL (11.7-16.9); MCH 30.1 pg (25.7-33.7); MCHC 31.9 g/dl (32.0-35.9); MEAN CELL VOLUME 94.4 fl (80-96); MEAN PLT VOLUME 9.7 fl (7.5-11.1); PLATELET COUNT 206 10^3/uL (134-434); RBC 4.67 M/mm3 (4.00-5.60); RDW 13.8 % (11.9-15.9); WHITE BLOOD COUNT 4.3 K/mm3 (4.0-10.0)
[2023-05-31] MEDS: chlordiazePOXIDE HCL 25 MG CAPSULE PO SCH ×3 (11:10→22:17)
[2023-05-31 11:14] LABS: POTASSIUM 4.3 mmol/L (3.5-5.1)
[2023-05-31 11:26] LABS: ALBUMIN 3.2 g/dl (3.4-5.0); BLOOD UREA NITROGEN 12.5 mg/dL (7-18); CALCIUM 8.7 mg/dL (8.5-10.1)
[2023-05-31 11:29] LABS: CREATININE 1.1 mg/dL (0.55-1.3)
[2023-05-31 11:31] LABS: BILIRUBIN,TOTAL 0.9 mg/dL (0.2-1); TOT PROT 6.2 g/dl (6.4-8.2)
[2023-05-31] MEDS: THIAMINE HCL 100 MG TABLET (FP) PO SCH (22:16)
[2023-05-31] MEDS: ATORVASTATIN CA 10 MG TABLET (FP) PO SCH (22:16)
[2023-05-31] MEDS: MELATONIN 5 MG TABLETS PO SCH (22:16)
[2023-06-01] MEDS: chlordiazePOXIDE HCL 25 MG CAPSULE PO SCH ×4 (06:00→22:35)
[2023-06-01] MEDS: amLODIPine BESYLATE 10 MG TABLET (FP) PO SCH (10:21)
[2023-06-01] MEDS: PRENATAL VITAMINS W/ FOLIC ACID TABLET (FP) PO SCH (10:21)
[2023-06-01] MEDS: QUEtiapine FUMARATE 400 MG TABLET PO SCH ×2 (10:21→22:35)
[2023-06-01] MEDS: MELATONIN 5 MG TABLETS PO SCH (22:35)
[2023-06-01] MEDS: ATORVASTATIN CA 10 MG TABLET (FP) PO SCH (22:35)
[2023-06-01] MEDS: THIAMINE HCL 100 MG TABLET (FP) PO SCH (22:35)
[2023-06-02] MEDS: chlordiazePOXIDE HCL 25 MG CAPSULE PO SCH ×4 (06:00→22:33)
[2023-06-02] MEDS: PRENATAL VITAMINS W/ FOLIC ACID TABLET (FP) PO SCH (10:50)
[2023-06-02] MEDS: QUEtiapine FUMARATE 400 MG TABLET PO SCH ×2 (10:50→22:34)
[2023-06-02] MEDS: amLODIPine BESYLATE 10 MG TABLET (FP) PO SCH (10:50)
[2023-06-02] MEDS: THIAMINE HCL 100 MG TABLET (FP) PO SCH (22:32)
[2023-06-02] MEDS: MELATONIN 5 MG TABLETS PO SCH (22:32)
[2023-06-02] MEDS: ATORVASTATIN CA 10 MG TABLET (FP) PO SCH (22:36)
[2023-06-03] MEDS ORDERED: chlordiazePOXIDE HCL 10 MG CAPSULE PO PRN
[2023-06-03] MEDS: chlordiazePOXIDE HCL 10 MG CAPSULE PO SCH ×4 (06:00→22:23)
[2023-06-03] MEDS: amLODIPine BESYLATE 10 MG TABLET (FP) PO SCH (10:28)
[2023-06-03] MEDS: PRENATAL VITAMINS W/ FOLIC ACID TABLET (FP) PO SCH (10:28)
[2023-06-03] MEDS: QUEtiapine FUMARATE 400 MG TABLET PO SCH ×2 (10:28→22:23)
[2023-06-03] MEDS: THIAMINE HCL 100 MG TABLET (FP) PO SCH (22:23)
[2023-06-03] MEDS: ATORVASTATIN CA 10 MG TABLET (FP) PO SCH (22:23)
[2023-06-03] MEDS: MELATONIN 5 MG TABLETS PO SCH (22:23)
[2023-06-04] MEDS ORDERED: chlordiazePOXIDE HCL 10 MG CAPSULE PO SCH (05:00)
[2023-06-04 09:04] VITALS: BP 121/67; PULSE 69; RESP 18; TEMP 97.7
[2023-06-04] MEDS: amLODIPine BESYLATE 10 MG TABLET (FP) PO SCH (09:19)
[2023-06-04] MEDS: PRENATAL VITAMINS W/ FOLIC ACID TABLET (FP) PO SCH (09:20)
[2023-06-04] MEDS: QUEtiapine FUMARATE 400 MG TABLET PO SCH (09:20)
[2023-06-05] MEDS ORDERED: chlordiazePOXIDE HCL 10 MG CAPSULE PO ONE (05:00)
== END 2023-06-04 09:19 | disposition home or self-care (01) | DRG 774 ==
LOC: YASAS 12:53 → Y3N 17:14
PROVIDERS: ADMIT Allergy & Immunology; ATTEND Allergy & Immunology
PROC: HZ2ZZZZ Detoxification Services for Substance Abuse Treatment (ICD-10-PCS; principal; 2023-05-30)
DX: F10.230 Alcohol dependence with withdrawal, uncomplicated (principal); F14.10 Cocaine abuse, uncomplicated; F12.10 Cannabis abuse, uncomplicated; F17.210 Nicotine dependence, cigarettes, uncomplicated; F31.9 Bipolar disorder, unspecified; E78.5 Hyperlipidemia, unspecified; I10 Essential (primary) hypertension; K21.9 Gastro-esophageal reflux disease without esophagitis
CPT/HCPCS: 36415; 80053; 82962; 85027; 86780; 87635; 87811; Q0162

== ENCOUNTER 2024-07-14 16:10 | Inpatient (IN) | payer OTHER ==
[2024-07-14 18:16] VITALS: BMI 25.0
[2024-07-14] MEDS ORDERED: NICOTINE POLACRILEX 2 MG LOZENGE BC PRN (19:18)
[2024-07-14] MEDS ORDERED: LOPERAMIDE HCL 2 MG CAPSULE PO PRN (19:18)
[2024-07-14] MEDS ORDERED: MAGNESIUM HYDROX 2400MG/30ML ORAL SUSPENSION 30 ML CUP PO PRN (19:18)
[2024-07-14] MEDS ORDERED: ACETAMINOPHEN 325 MG TABLET (FP) PO PRN (19:18)
[2024-07-14] MEDS ORDERED: POLYETHYLENE GLYCOL (HEALTHYLAX) 3350 17 GM PACKET PO PRN (19:18)
[2024-07-14] MEDS ORDERED: ONDANSETRON *ODT* 4 MG TABLET SL PRN (19:18)
[2024-07-14] MEDS ORDERED: NICOTINE POLACRILEX 2 MG GUM BUC PRN (19:18)
[2024-07-14] MEDS ORDERED: BENZOCAINE/MENTHOL (CHLORASEPTIC ) LOZENGE MM PRN (19:18)
[2024-07-14] MEDS ORDERED: METHOCARBAMOL 500 MG TABLET PO PRN (19:18)
[2024-07-14] MEDS ORDERED: guaiFENesin 600 MG TABLET.ER (FP) PO PRN (19:18)
[2024-07-14] MEDS ORDERED: BENZONATATE 200 MG CAPSULE PO PRN (19:18)
[2024-07-14] MEDS ORDERED: IBUPROFEN 400 MG TABLET (FP) PO PRN (19:18)
[2024-07-14] MEDS ORDERED: DICYCLOMINE HCL 10 MG CAPSULE PO PRN (19:18)
[2024-07-14] MEDS ORDERED: BISMUTH SUBSALICYLATE 524 MG/30 ML PO PRN (19:18)
[2024-07-14] MEDS ORDERED: MAG HYDROX/AL HYDROX/SIMETH 30 ML UNIT-DOSE CUP PO PRN (19:18)
[2024-07-14] MEDS ORDERED: P-EPHED 60MG/TRIPROLIDI 2.5MG TABLET PO PRN (19:18)
[2024-07-14] MEDS: MELATONIN 5 MG TABLETS PO SCH (22:14)
[2024-07-14] MEDS: hydrOXYzine PAMOATE 25 MG CAPSULE (FP) PO PRN (22:15)
[2024-07-14] MEDS: OFLOXACIN 0.3% OTIC SOLUTION 5 ML BOTTLE AS SCH (22:15)
[2024-07-14] MEDS: THIAMINE 100 MG TABLET PO SCH (22:15)
[2024-07-14] MEDS: IBUPROFEN 600 MG TABLET (FP) PO PRN (22:15)
[2024-07-15] MEDS ORDERED: chlordiazePOXIDE HCL 25 MG CAPSULE PO PRN (08:41)
[2024-07-15] MEDS: PRENATAL VITAMINS W/ FOLIC ACID TABLET (FP) PO SCH (09:35)
[2024-07-15] MEDS: amLODIPine BESYLATE 10 MG TABLET (FP) PO SCH (09:35)
[2024-07-15] MEDS: QUEtiapine FUMARATE 400 MG TABLET PO SCH (09:37)
[2024-07-15] MEDS: chlordiazePOXIDE HCL 25 MG CAPSULE PO SCH (10:23)
[2024-07-15 13:50] LABS: HEMOGLOBIN 12.6 GM/dL (11.7-16.9); MCH 31.6 pg (25.7-33.7); MCHC 33.2 g/dl (32.0-35.9); MEAN PLT VOLUME 9.7 fl (7.5-11.1); PLATELET COUNT 230 10^3/uL (134-434); RDW 12.6 % (11.9-15.9); WHITE BLOOD COUNT 4.8 K/mm3 (4.0-10.0)
[2024-07-15 13:59] LABS: POTASSIUM 3.9 mmol/L (3.5-5.1)
[2024-07-15 14:17] LABS: ALBUMIN 3.1 g/dl (3.4-5.0); CALCIUM 8.8 mg/dL (8.5-10.1)
[2024-07-15 14:18] LABS: BLOOD UREA NITROGEN 14.4 mg/dL (7-18)
[2024-07-15 14:21] LABS: CREATININE 0.9 mg/dL (0.55-1.3)
[2024-07-15 14:22] LABS: BILIRUBIN,TOTAL 0.4 mg/dL (0.2-1)
[2024-07-15] MEDS: ATORVASTATIN CA 10 MG TABLET (FP) PO SCH (22:07)
[2024-07-17] MEDS: chlordiazePOXIDE HCL 25 MG CAPSULE PO SCH (05:50)
[2024-07-17] MEDS: NALTREXONE HCL 50 MG TABLET PO SCH (13:22)
[2024-07-18] MEDS ORDERED: chlordiazePOXIDE HCL 10 MG CAPSULE PO PRN
[2024-07-18] MEDS: chlordiazePOXIDE HCL 10 MG CAPSULE PO SCH (05:56)
[2024-07-18] MEDS ORDERED: NALOXONE (NYS OPIOID OVERDOSE PROGRAM) 4 MG/0.1 ML SPRAY NS PRN (14:20)
[2024-07-18] MEDS: NALOXONE (NYS OPIOID OVERDOSE PROGRAM) 4 MG/0.1 ML SPRAY NS ONE (15:12)
[2024-07-19] MEDS: chlordiazePOXIDE HCL 10 MG CAPSULE PO SCH (05:33)
[2024-07-19 06:18] VITALS: RESP 17
[2024-07-19 08:47] VITALS: BP 132/74; PULSE 83; TEMP 97.6
[2024-07-20] MEDS ORDERED: chlordiazePOXIDE HCL 10 MG CAPSULE PO ONE (05:00)
== END 2024-07-19 11:41 | disposition home or self-care (01) | DRG 773 ==
LOC: YASAS 16:10 → Y6N 19:55
PROVIDERS: ADMIT Allergy & Immunology; ATTEND Surgery
PROC: HZ2ZZZZ Detoxification Services for Substance Abuse Treatment (ICD-10-PCS; principal; 2024-07-14)
DX: F11.23 Opioid dependence with withdrawal (principal); F10.230 Alcohol dependence with withdrawal, uncomplicated; F12.20 Cannabis dependence, uncomplicated; F17.210 Nicotine dependence, cigarettes, uncomplicated; F31.9 Bipolar disorder, unspecified; F19.282 Other psychoactive substance dependence with psychoactive substance-induced sleep disorder; E78.5 Hyperlipidemia, unspecified; I10 Essential (primary) hypertension; H60.90 Unspecified otitis externa, unspecified ear
CPT/HCPCS: 36415; 80053; 80305; 82962; 85027; 86780

== ENCOUNTER 2024-10-28 14:54 | Inpatient (IN) | payer OTHER ==
[2024-10-28 16:47] VITALS: BMI 26.6
[2024-10-28] MEDS ORDERED: diazePAM 5 MG TABLET PO PRN (16:51)
[2024-10-28] MEDS ORDERED: IBUPROFEN 400 MG TABLET (FP) PO PRN (17:01)
[2024-10-28] MEDS ORDERED: NICOTINE POLACRILEX 2 MG GUM BUC PRN (17:01)
[2024-10-28] MEDS ORDERED: BENZONATATE 200 MG CAPSULE PO PRN (17:01)
[2024-10-28] MEDS ORDERED: POLYETHYLENE GLYCOL (HEALTHYLAX) 3350 17 GM PACKET PO PRN (17:01)
[2024-10-28] MEDS ORDERED: METHOCARBAMOL 500 MG TABLET PO PRN (17:01)
[2024-10-28] MEDS ORDERED: BENZOCAINE/MENTHOL (CHLORASEPTIC ) LOZENGE MM PRN (17:01)
[2024-10-28] MEDS ORDERED: DICYCLOMINE HCL 10 MG CAPSULE PO PRN (17:01)
[2024-10-28] MEDS ORDERED: guaiFENesin 600 MG TABLET.ER (FP) PO PRN (17:01)
[2024-10-28] MEDS ORDERED: LOPERAMIDE HCL 2 MG CAPSULE PO PRN (17:01)
[2024-10-28] MEDS ORDERED: MAG HYDROX/AL HYDROX/SIMETH 30 ML UNIT-DOSE CUP PO PRN (17:01)
[2024-10-28] MEDS ORDERED: BISMUTH SUBSALICYLATE 524 MG/30 ML PO PRN (17:01)
[2024-10-28] MEDS ORDERED: IBUPROFEN 600 MG TABLET (FP) PO PRN (17:01)
[2024-10-28] MEDS ORDERED: ACETAMINOPHEN 325 MG TABLET (FP) PO PRN (17:01)
[2024-10-28] MEDS ORDERED: NICOTINE POLACRILEX 2 MG LOZENGE BC PRN (17:01)
[2024-10-28] MEDS ORDERED: NALOXONE (NARCAN) HCL 4 MG/0.1 ML SPRAY NS PRN (17:01)
[2024-10-28] MEDS ORDERED: MAGNESIUM HYDROX 2400MG/30ML ORAL SUSPENSION 30 ML CUP PO PRN (17:01)
[2024-10-28] MEDS ORDERED: ONDANSETRON *ODT* 4 MG TABLET SL PRN (17:01)
[2024-10-28] MEDS: diazePAM 5 MG TABLET PO SCH (22:49)
[2024-10-28] MEDS: QUEtiapine FUMARATE 50 MG TABLET PO ONE (22:49)
[2024-10-28] MEDS: MELATONIN 5 MG TABLETS PO SCH (22:49)
[2024-10-28] MEDS: THIAMINE 100 MG TABLET PO SCH (22:49)
[2024-10-29] MEDS: PRENATAL VITAMINS W/ FOLIC ACID TABLET (FP) PO SCH (10:16)
[2024-10-29] MEDS: amLODIPine BESYLATE 10 MG TABLET (FP) PO SCH (10:19)
[2024-10-29 11:40] LABS: HEMATOCRIT 39.9 % (35.4-49); HEMOGLOBIN 12.8 GM/dL (11.7-16.9); MCH 30.3 pg (25.7-33.7); MCHC 32.1 g/dl (32.0-35.9); MEAN CELL VOLUME 94.3 fl (80-96); MEAN PLT VOLUME 9.1 fl (7.5-11.1); PLATELET COUNT 271 10^3/uL (134-434); RBC 4.23 M/mm3 (4.00-5.60); RDW 12.9 % (11.9-15.9); WHITE BLOOD COUNT 5.4 K/mm3 (4.0-10.0)
[2024-10-29 11:44] LABS: POTASSIUM 3.9 mmol/L (3.5-5.1)
[2024-10-29 11:50] LABS: ALBUMIN 3.2 g/dl (3.4-5.0); BLOOD UREA NITROGEN 7.8 mg/dL (7-18)
[2024-10-29 11:53] LABS: CREATININE 0.8 mg/dL (0.55-1.3)
[2024-10-29 11:54] LABS: BILIRUBIN,TOTAL 0.4 mg/dL (0.2-1)
[2024-10-29 11:55] LABS: TOT PROT 6.8 g/dl (6.4-8.2)
[2024-10-29] MEDS: QUEtiapine FUMARATE 200 MG TABLET PO ONE (14:03)
[2024-10-29] MEDS ORDERED: QUEtiapine FUMARATE 400 MG TABLET PO SCH (22:00)
[2024-10-29] MEDS: QUEtiapine FUMARATE 400 MG TABLET PO SCH (22:19)
[2024-10-29] MEDS: ATORVASTATIN CA 10 MG TABLET (FP) PO SCH (22:19)
[2024-10-30] MEDS: diazePAM 5 MG TABLET PO SCH (05:53)
[2024-10-30] MEDS: hydrOXYzine PAMOATE 25 MG CAPSULE (FP) PO PRN (14:13)
[2024-10-31] MEDS: diazePAM 5 MG TABLET PO SCH (06:12)
[2024-11-01] MEDS: diazePAM 5 MG TABLET PO ONE (05:56)
[2024-11-01] MEDS: NALOXONE (NYS OPIOID OVERDOSE PROGRAM) 4 MG/0.1 ML SPRAY NS SCH (09:31)
[2024-11-01 09:51] VITALS: BP 123/72; PULSE 102; RESP 16; TEMP 98.3
== END 2024-11-01 10:07 | disposition home or self-care (01) | DRG 774 ==
LOC: YASAS 14:54 → Y3N 18:03
PROVIDERS: ADMIT Allergy & Immunology; ATTEND Allergy & Immunology
PROC: HZ2ZZZZ Detoxification Services for Substance Abuse Treatment (ICD-10-PCS; principal; 2024-10-28)
DX: F10.230 Alcohol dependence with withdrawal, uncomplicated (principal); F14.20 Cocaine dependence, uncomplicated; F12.20 Cannabis dependence, uncomplicated; F17.210 Nicotine dependence, cigarettes, uncomplicated; F31.9 Bipolar disorder, unspecified; E78.2 Mixed hyperlipidemia; I10 Essential (primary) hypertension; K21.9 Gastro-esophageal reflux disease without esophagitis
CPT/HCPCS: 36415; 80053; 85027; 86780